=== PATIENT | male | born 1950 | race Caucasian/White ===

== ENCOUNTER → 2018-01-04 10:24 | Outpatient (CLI) | payer MEDICARE, OTHER, SELFPAY ==
[2018-01-04 12:59] LABS: AST(SGOT) 24 U/L (15-37); Alanine Aminotransfer ALT/SGPT 38 U/L (16-61); Anion Gap 12 (5-15); BUN 14 mg/dL (7-18); BUN/Creat Ratio 19.4 RATIO (10-20); Calcium,Total 8.9 mg/dL (8.5-10.1); Chloride 107 mmol/L (98-107); Cholesterol 127 mg/dL (200); Creatinine, Serum 0.72 mg/dL (0.70-1.30); EST Glomerular Filtration Rate 115 mL/min (>60); Est Glom Filt Rate - Afr Amer 139 mL/min (>60); Glucose 91 mg/dL (74-106); High Density Lipoprotein 41 mg/dL; PSA,Total - Annual Screen 1.58 ng/mL (0.00-4.00); Potassium 4.2 mmol/L (3.5-5.1); Sodium Level 142 mmol/L (136-145); Thyroid Stim Hormone (TSH) 0.89 uIU/mL (0.358-3.74); Triglycerides 85 mg/dL; Very Low Density Lipoprotein 17 mg/dL (5-40)
== END ==
PROVIDERS: Family Provider Family Medicine; PCP Family Medicine; Visit Provider Family Medicine
DX: Z00.00 Encounter for general adult medical examination without abnormal findings (principal); I10 Essential (primary) hypertension; E78.00 Pure hypercholesterolemia, unspecified
CPT/HCPCS: 36415; 80048; 80061; 84153; 84443; 84450; 84460; G0103

== ENCOUNTER → 2019-01-08 10:13 | Outpatient (CLI) | payer MEDICARE, OTHER, SELFPAY ==
[2017-03-27 08:51] VITALS: BMI 30.4
[2019-01-08 13:16] LABS: Vitamin D,25 Hydroxy 37.2 ng/mL (29.95-100.01)
[2019-01-08 13:21] LABS: AST(SGOT) 23 U/L (15-37); Alanine Aminotransfer ALT/SGPT 39 U/L (16-61); Anion Gap 7 (5-15); BUN 10 mg/dL (7-18); Calcium,Total 8.8 mg/dL (8.5-10.1); Chloride 109 mmol/L (98-107); Cholesterol 127 mg/dL (200); Creatinine, Serum 0.71 mg/dL (0.70-1.30); EST Glomerular Filtration Rate 117 mL/min (>60); Est Glom Filt Rate - Afr Amer 141 mL/min (>60); Glucose 88 mg/dL (74-106); High Density Lipoprotein 50 mg/dL; Magnesium 2.1 mg/dL (1.6-2.6); PSA,Total - Annual Screen 1.52 ng/mL (0.00-4.00); Sodium Level 141 mmol/L (136-145); Triglycerides 100 mg/dL; Very Low Density Lipoprotein 20 mg/dL (5-40)
== END ==
PROVIDERS: Family Provider Family Medicine; PCP Family Medicine; Visit Provider Family Medicine
DX: Z00.00 Encounter for general adult medical examination without abnormal findings (principal); I10 Essential (primary) hypertension; E78.00 Pure hypercholesterolemia, unspecified; E55.9 Vitamin D deficiency, unspecified; N52.9 Male erectile dysfunction, unspecified; Z12.5 Encounter for screening for malignant neoplasm of prostate
CPT/HCPCS: 36415; 80048; 80061; 82306; 83735; 84153; 84403; 84450; 84460; G0103

== ENCOUNTER → 2019-01-16 18:50 | Outpatient (CLI) | payer MEDICARE, OTHER, SELFPAY ==
--- NOTE | 2019-01-16 18:55 | CT_ITS ---
STUDY: LOW DOSE CT LUNG CANCER SCREENING REASON FOR EXAM: Male, 68 years old. Tobacco use. 1 pack per day for 40 years. Screening for lung cancer. RADIATION DOSAGE (If Supplied By Facility): CTDIvol = ( 3.02 ) mGy, DLP = ( 120.41 ) mGycm TECHNIQUE: CT chest without contrast, lung cancer screening protocol. COMPARISON: Chest radiograph 05/25/2017. FINDINGS: Heart and great vessels: Heart size normal. No aneurysm of the thoracic aorta. Atherosclerosis including of the coronary arteries. Lungs, pleura: No concerning pulmonary nodules. 2 small incidental calcified granulomas, one in the right upper lobe and the other in left lower lobe. No pneumonia, edema, or acute abnormality in the lungs. No pleural effusion. No pneumothorax. Mild biapical emphysema. Mediastinum: No adenopathy or mass or hematoma. Osseous: No fracture or acute osseous abnormality. Chest wall: No concerning findings. Upper abdomen: No acute findings. Incidental cyst upper pole right kidney. CT/Low Dose CT Lung Screening IMPRESSION: No concerning pulmonary nodules. Lung RADS category 1. Electronically Signed: Yaron Pina, at 19:20 EDT Tel , Service support ,
== END ==
PROVIDERS: Family Provider Family Medicine; PCP Family Medicine; Referring Provider Family Medicine; Visit Provider Family Medicine
DX: Z12.2 Encounter for screening for malignant neoplasm of respiratory organs (principal); Z87.891 Personal history of nicotine dependence; J44.9 Chronic obstructive pulmonary disease, unspecified
CPT/HCPCS: G0297

== ENCOUNTER → 2019-02-26 10:24 | Outpatient (CLI) | payer MEDICARE, OTHER, SELFPAY ==
[2017-03-27 08:51] VITALS: BMI 30.4
[2019-02-26 12:30] LABS: Absolute Lymphocyte Count 1.63 X10^3/uL (0.83-4.51); Absolute Neutrophil Count 2.5 X10^3/uL (2.0-7.7); Basophil# 0.03 X10^3/uL; Basophil% 0.6 % (0-1); Eosinophil# 0.12 X10^3/uL; Eosinophils% 2.5 % (0-5); Hematocrit 42.7 % (40-54); Hemoglobin 13.8 g/dL (13.0-16.5); Lymphocyte # 1.63 X10^3/ul (4.0); Lymphocyte % 34.5 % (19-41); Mean Corp Hgb Conc 32.3 g/dL (32-36); Mean Corpuscular Hgb 32.9 pg (27.0-32.0); Mean Corpuscular Volume 101.9 fL (80-94); Mean Platelet Vol. 9.8 fl (6.2-12.0); Monocyte# 0.42 X10^3/uL; Monocyte% 8.9 % (0-10); NRBC Flagged by Analyzer 0 % (0-5); Neutrophil # 2.53 X10^3/uL (2.7-7.7); Neutrophil % 53.5 % (47-70); Platelet Count 184 K/mm3 (150-450); RBC Distribution Width CV 12.7 % (11.6-14.6); RBC Distribution Width SD 47.5 fl (35.1-43.9); Red Blood Count 4.19 M/mm3 (4.6-6.2); White Blood Count 4.7 K/mm3 (4.4-11.0)
[2019-02-26 12:45] LABS: PSA,Total - Annual Screen 1.79 ng/mL (0.00-4.00)
== END ==
PROVIDERS: Family Provider Family Medicine; PCP Family Medicine; Visit Provider Family Medicine
DX: R36.1 Hematospermia (principal); R35.1 Nocturia
CPT/HCPCS: 36415; 84153; 85025; G0103

== ENCOUNTER → 2019-09-28 10:46 | Outpatient (CLI) | payer MEDICARE, OTHER, SELFPAY ==
[2017-03-27 08:51] VITALS: BMI 30.4
[2019-09-28 13:40] LABS: AST(SGOT) 28 U/L (15-37); Alanine Aminotransfer ALT/SGPT 42 U/L (16-61); Anion Gap 6 (5-15); BUN 12 mg/dL (7-18); BUN/Creat Ratio 15.6 RATIO (10-20); Calcium,Total 9.1 mg/dL (8.5-10.1); Chloride 110 mmol/L (98-107); Cholesterol 133 mg/dL (200); Creatinine, Serum 0.77 mg/dL (0.70-1.30); EST Glomerular Filtration Rate 107 mL/min (>60); Est Glom Filt Rate - Afr Amer 129 mL/min (>60); Glucose 89 mg/dL (74-106); High Density Lipoprotein 43 mg/dL; Potassium 3.9 mmol/L (3.5-5.1); Sodium Level 140 mmol/L (136-145); Triglycerides 149 mg/dL; Very Low Density Lipoprotein 30 mg/dL (5-40)
== END ==
PROVIDERS: PCP Family Medicine; Visit Provider Family Medicine
DX: I10 Essential (primary) hypertension (principal); E78.00 Pure hypercholesterolemia, unspecified
CPT/HCPCS: 36415; 80048; 80061; 84450; 84460

== ENCOUNTER → 2020-01-29 11:12 | Outpatient (CLI) | payer MEDICARE, OTHER, SELFPAY ==
[2017-03-27 08:51] VITALS: BMI 30.4
--- NOTE | 2020-01-29 11:18 | RAD_ITS ---
STUDY: X-RAY CHEST REASON FOR EXAM: Male, 69 years old. COPD with exacerbation, shortness of breath, cough, wheezing, rales TECHNIQUE: PA and lateral views of the chest. COMPARISON: Comparison is made with prior study dated 05/25/2017. FINDINGS: Hyperinflation. Scattered calcified granulomas. There is no demonstrated pleural abnormality. Normal size heart. Normal mediastinum and patricio. There is prominence of the pulmonary hilar arteries without peripheral pulmonary vascular congestion, suggesting pulmonary hypertension. There is atherosclerotic calcification of the aortic arch with tortuosity. There are diffuse degenerative changes of the visualized thoracic spine. Normal visualized ribs, clavicles, and shoulders. There is no demonstrated abnormality of the visualized soft tissue structures of the upper abdomen. RAD/Chest PA and Lateral IMPRESSION: Hyperinflation. Electronically Signed: Wyatt Corral, at 12:16 EDT , Service support ,
== END ==
PROVIDERS: PCP Family Medicine
DX: J44.1 Chronic obstructive pulmonary disease with (acute) exacerbation (principal)
CPT/HCPCS: 71046

== ENCOUNTER → 2020-09-30 09:50 | Outpatient (CLI) | payer MEDICARE, OTHER, SELFPAY ==
[2017-03-27 08:51] VITALS: BMI 30.4
[2020-09-30 13:01] LABS: AST(SGOT) 29 U/L (15-37); Alanine Aminotransfer ALT/SGPT 44 U/L (16-61); Anion Gap 3 (5-15); BUN 12 mg/dL (7-18); BUN/Creat Ratio 15.5 RATIO (10-20); Calcium,Total 8.7 mg/dL (8.5-10.1); Chloride 108 mmol/L (98-107); Cholesterol 124 mg/dL (200); Creatinine, Serum 0.78 mg/dL (0.70-1.30); EST Glomerular Filtration Rate 105 mL/min (>60); Est Glom Filt Rate - Afr Amer 128 mL/min (>60); Glucose 99 mg/dL (74-106); High Density Lipoprotein 47 mg/dL; Potassium 4.2 mmol/L (3.5-5.1); Sodium Level 139 mmol/L (136-145); Triglycerides 101 mg/dL; Very Low Density Lipoprotein 20 mg/dL (5-40)
== END ==
PROVIDERS: PCP Family Medicine; Referring Provider Family Medicine; Visit Provider Family Medicine
DX: I10 Essential (primary) hypertension (principal); E78.00 Pure hypercholesterolemia, unspecified
CPT/HCPCS: 36415; 80048; 80061; 84450; 84460

== ENCOUNTER → 2020-10-09 14:27 | Outpatient (CLI) | payer MEDICARE, OTHER, SELFPAY ==
[2017-03-27 08:51] VITALS: BMI 30.4
--- NOTE | 2020-10-09 14:30 | CT_ITS ---
STUDY: LOW DOSE CT LUNG CANCER SCREENING REASON FOR EXAM: Male, 70 years old. Screening for lung cancer. Former smoker. Patient smoked 1 pack per day for 40 years. RADIATION DOSAGE (If Supplied By Facility): CTDIvol = ( 3.02 ) mGy, DLP = ( 101.94 ) mGycm TECHNIQUE: No contrast was administered. Low dose technique was utilized (average mAS-38 and kVp 120). 1.25 mm axial source images with a slice interval of 1.25-mm were reconstructed in lung windows. 2.5 mm axial source images with a slice interval of 2.5-mm were reconstructed in lung windows. 5.0 mm axial source images with a slice interval of 5.0-mm were reconstructed in soft tissue windows. Nodule measured using lung windows on PACS and/or independent workstation with automated measurement of minimum and maximum diameter. Nodule measurement reported as average diameter rounded to the nearest whole number. Growth is defined as an increase ins size of greater than 1.5 mm. COMPARISON: Comparison is made with prior study dated 01/16/2019. NODULES: No suspicious nodules are seen. Stable 2 small calcified granulomas in the right upper lobe and in the left lower lobe. Emphysema: Mild emphysematous changes. Endobronchial lesion: None Aorta: Scattered calcified aortic plaques. Coronary arteries: Minimal coronary calcification. Mediastinal nodes: Small benign-appearing mediastinal lymph nodes. Other chest and abdominal findings: Degenerative changes of the thoracic spine. CT/Low Dose CT Lung Screening IMPRESSION: Lung-RADS category 2 - Continue annual screening with LDCT in 12 months. IMPORTANT NOTES FOR USE: ACR Lung-RADS Version 1.1 Assessment Categories Release Date: 2018 Category: Coded 0-4 bases on nodule(s) with highest degree of suspicion. Negative screen is defined as categories 1 and 2; a positive screen is defined as categories 3 and 4. Category 3 and 4A nodules that are unchanged on interval CT should be coded as category 2, and individuals returned to screening in 12 months. Category 4X: Category 3 or 4 nodules with additional imaging findings that increase the suspicion of lung cancer, such as spiculation, GGN that doubles in size in 1 year, enlarged lymph notes, etc. Category Modifiers: S (significant finding unrelated to lung cancer) Electronically Signed: Wyatt Corral MD at 9:24 EDT , Service support ,
== END ==
PROVIDERS: PCP Family Medicine; Referring Provider Family Medicine; Visit Provider Family Medicine
DX: Z12.2 Encounter for screening for malignant neoplasm of respiratory organs (principal); Z87.891 Personal history of nicotine dependence
CPT/HCPCS: 71271

== ENCOUNTER → 2020-10-10 10:11 | Outpatient (CLI) | payer MEDICARE, OTHER, SELFPAY ==
[2017-03-27 08:51] VITALS: BMI 30.4
[2020-10-10 12:09] LABS: PSA,Total - Annual Screen 1.96 ng/mL (0.00-4.00)
== END ==
PROVIDERS: PCP Family Medicine; Referring Provider Family Medicine; Visit Provider Family Medicine
DX: Z12.5 Encounter for screening for malignant neoplasm of prostate (principal); R35.1 Nocturia
CPT/HCPCS: 36415; 84153; G0103

== ENCOUNTER → 2021-04-27 | Outpatient (CLI) | payer MEDICARE, OTHER, SELFPAY | END | disposition home or self-care (01) | PROVIDERS: PCP Family Medicine; Referring Provider Nurse Practitioner Family; Visit Provider Nurse Practitioner Family | DX: J98.8 Other specified respiratory disorders (principal); Z20.822 Contact with and (suspected) exposure to COVID-19 | CPT/HCPCS: 87633; 87635; U0005; U0003 ==

== ENCOUNTER 2021-12-01 06:26 | Day surgery (SDC) | payer MEDICARE, OTHER, SELFPAY ==
[2021-12-01] VITALS (8 sets, daily range): BP systolic 94–128; BP diastolic 47–70; PULSE 64–72; RESP 16–18; TEMP 36.1–36.7; O2SAT 92–97; BMI 30.1
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
[2021-12-01] MEDS: Lactated Ringers 1,000 ML 15 ML IV (07:04)
--- NOTE | 2021-12-01 07:30 | COLBX_PTH ---
PATIENT: JIMBO WEATHERS LOC: EN U#:[id number] AGE/SX: 71/M ROOM: RE12/01/[address]: Dr. Norm Ellison MD : 1950 BED: DIS: 12/01/2021 SPEC #: [id number] RECD: 12/01/21 09:16 STATUS: BIBI REDaniela #: [id number] KISHOR: 12/01/21 07:[address]: Norm Ellison DEPT: SURGICAL PATHOLOGY RECD BY: Amanda Flores ENTERED: 12/01/21 09:59 SP TYPE: COLON BX OTHR DR: Dr. Lurdes Martinez MD Tissues: Rectum, NOS Procedures: Surgery Specimen Level IV HEADER OPERATION: Colonoscopy ? open access (MAC) PRE-OP DIAGNOSIS: History of colon polyps TISSUE SUBMITTED: Rectal polyp MICROSCOPIC DIAGNOSIS Rectal polyp, biopsy: Hyperplastic polyp. AM:matt 12/02/2021 MICROSCOPIC DESCRIPTION Slides are reviewed. GROSS DESCRIPTION Received in fixative is one container labeled with the patient's name and designated rectal polyp. The specimen consists of one irregular fragment of light sheridan soft tissue that measures 0.6 x 0.2 x 0.1 cm. The specimen is totally submitted in one cassette. / AM:matt 12/01/2021 TC:5 CPT: 20383
--- NOTE | 2021-12-01 07:49 | OP.COLON_ITS ---
Patient Name: Tai Mccormick Procedure Date: 12/01/2021 7:29 AM Date of : 1950 Age: 71 Procedure: Colonoscopy Indications: High risk colon cancer surveillance: Personal history of colonic polyps Providers: Norm Ellison MD Medicines: Monitored Anesthesia Care Patient Profile: This is a 71 year old male. Refer to note in patient chart for documentation of history and physical. Last Colonoscopy: 5 years ago. Complications: No immediate complications. Procedure: Pre-Anesthesia Assessment: - Prior to the procedure, a History and Physical was performed, and patient medications and allergies were reviewed. The patient's tolerance of previous anesthesia was also reviewed. The risks and benefits of the procedure and the sedation options and risks were discussed with the patient. All questions were answered, and informed consent was obtained. Prior Anticoagulants: The patient has taken no previous anticoagulant or antiplatelet agents. After reviewing the risks and benefits, the patient was deemed in satisfactory condition to undergo the procedure. After I obtained informed consent, the scope was passed under direct vision. Throughout the procedure, the patient's blood pressure, pulse, and oxygen saturations were monitored continuously. The colonoscope was introduced through the anus and advanced to the cecum, identified by appendiceal orifice and ileocecal valve. The colonoscopy was performed without difficulty. The patient tolerated the procedure well. The quality of the bowel preparation was good. Scope In: 7:36:18 AM Scope Withdrawal Time 0 hours 6 minutes 4 seconds Scope Out: 7:45:20 AM Total Procedure Duration Time 0 hours 9 minutes 2 seconds Findings: A small polyp was found in the rectum. The polyp was removed with a hot snare. Resection and retrieval were complete. The exam was otherwise without abnormality on direct and retroflexion views. Impression: - One small polyp in the rectum, removed with a hot snare. Resected and retrieved. - The examination was otherwise normal on direct and retroflexion views. Recommendation: - Discharge patient to home. - Resume previous diet. - Continue present medications. - Await pathology results. - Repeat colonoscopy date to be determined after pending pathology results are reviewed for surveillance based on pathology results. Procedure Code(s): --- Professional --- 31884, Colonoscopy, flexible; with removal of tumor(s), polyp(s), or other lesion(s) by snare technique Diagnosis Code(s): --- Professional --- Z86.010, Personal history of colonic polyps K62.1, Rectal polyp CPT copyright 2017 [employer]. All rights reserved. The codes documented in this report are preliminary and upon executive talent acquisition consultant review may be revised to meet current compliance requirements. Norm Ellison MD 12/01/2021 7:49:42 AM This report has been signed electronically. Number of Addenda: 0 Note Initiated On: 12/01/2021 7:29 AM
--- NOTE | 2021-12-01 07:49 | OP.CCLET_ITS ---
12/01/2021 Lurdes Martinez [address] [place] [address] Re : Colonoscopy procedure for Tai Valdez Dear Dr. Martinez This procedure was performed on Wednesday, December 01, 2021. My impressions and recommendations are as follows: Impressions : - One small polyp in the rectum, removed with a hot snare. Resected and retrieved. - The examination was otherwise normal on direct and retroflexion views. Recommendations : - Discharge patient to home. - Resume previous diet. - Continue present medications. - Await pathology results. - Repeat colonoscopy date to be determined after pending pathology results are reviewed for surveillance based on pathology results. My findings are described in the full procedure note, which is enclosed. If I can be of further assistance, please feel free to contact me at Doctor phone number(s): , Work: . Sincerely, Norm Ellison MD 12/01/2021 7:49:42 AM This report has been signed electronically.
--- NOTE | 2021-12-01 08:20 | SUR.PHASEI ---
PT WHEEZING WHEN WOKE UP, PT SPO2 92%. PER DR WOODRUFF, MAY USE HOME INHALER. PT NOW WITH SPO2 96%, NO WHEEZING.
== END 2021-12-01 08:45 | disposition home or self-care (01) ==
LOC: EN 06:29 → AC 06:32
PROVIDERS: PCP Family Medicine; Referring Provider Family Medicine; Visit Provider Surgery
PROC: 0DJD8ZZ Inspection of Lower Intestinal Tract, Via Natural or Artificial Opening Endoscopic (ICD-10-PCS; CPT 45378; principal; 2021-12-01 07:25)
DX: Z12.11 Encounter for screening for malignant neoplasm of colon (principal); J44.9 Chronic obstructive pulmonary disease, unspecified; K62.1 Rectal polyp; I10 Essential (primary) hypertension; E78.00 Pure hypercholesterolemia, unspecified; M19.90 Unspecified osteoarthritis, unspecified site; J45.909 Unspecified asthma, uncomplicated; Z79.82 Long term (current) use of aspirin; Z79.899 Other long term (current) drug therapy; Z86.010 Personal history of colon polyps; Z87.891 Personal history of nicotine dependence
CPT/HCPCS: 45385; 88305; J7120; J2405

== ENCOUNTER → 2022-01-26 | Outpatient (CLI) | payer MEDICARE, OTHER, SELFPAY ==
[2022-01-26 12:55] LABS: Anion Gap 7 (5-15); BUN 11 mg/dL (7-18); BUN/Creat Ratio 14.1 RATIO (10-20); Calcium,Total 8.9 mg/dL (8.5-10.1); Chloride 108 mmol/L (98-107); Cholesterol 115 mg/dL (200); Creatinine, Serum 0.78 mg/dL (0.70-1.30); EST Glomerular Filtration Rate 105 mL/min (>60); Est Glom Filt Rate - Afr Amer 126 mL/min (>60); Glucose 104 mg/dL (74-106); High Density Lipoprotein 43 mg/dL; Potassium 4.2 mmol/L (3.5-5.1); Sodium Level 141 mmol/L (136-145); Triglycerides 121 mg/dL; Very Low Density Lipoprotein 24 mg/dL (5-40)
== END | disposition home or self-care (01) ==
LOC: MFPLAB 10:21
PROVIDERS: PCP Family Medicine; Visit Provider Family Medicine
DX: I10 Essential (primary) hypertension (principal)
CPT/HCPCS: 36415; 80048; 80061

== ENCOUNTER → 2022-07-22 | Outpatient (CLI) | payer MEDICARE, OTHER, SELFPAY | END | disposition home or self-care (01) | PROVIDERS: PCP Family Medicine; Referring Provider Otolaryngology Otolaryngology/Facial Plastic Surgery; Visit Provider Otolaryngology Otolaryngology/Facial Plastic Surgery | DX: H92.10 Otorrhea, unspecified ear (principal) | CPT/HCPCS: 87070; 87075; 87077; 87107; 87205 ==

== ENCOUNTER → 2022-08-02 | Outpatient (CLI) | payer MEDICARE, OTHER, SELFPAY | END | disposition home or self-care (01) | PROVIDERS: PCP Family Medicine; Referring Provider Otolaryngology Otolaryngology/Facial Plastic Surgery; Visit Provider Otolaryngology Otolaryngology/Facial Plastic Surgery | DX: H66.90 Otitis media, unspecified, unspecified ear (principal) | CPT/HCPCS: 87070; 87075; 87205 ==

== ENCOUNTER → 2022-08-25 | Outpatient (CLI) | payer MEDICARE, OTHER, SELFPAY ==
[2022-08-25 15:54] LABS: PSA,Total - Annual Screen 2.06 ng/mL (0.00-4.00)
== END | disposition home or self-care (01) ==
PROVIDERS: PCP Family Medicine; Referring Provider Family Medicine; Visit Provider Family Medicine
DX: Z12.5 Encounter for screening for malignant neoplasm of prostate (principal); H92.13 Otorrhea, bilateral
CPT/HCPCS: 36415; 84153; 87070; 87075; 87077; 87107; 87205; G0103

== ENCOUNTER → 2022-09-03 | Outpatient (CLI) | payer MEDICARE, OTHER, SELFPAY ==
--- NOTE | 2022-09-03 07:00 | CT_ITS ---
EXAM: CT CHEST, LUNG CANCER SCREENING WITHOUT INTRAVENOUS CONTRAST CLINICAL INDICATION: SCREENING TECHNIQUE: Helically acquired images were obtained of the chest without intravenous contrast using low dose (LDCT) lung cancer screening protocol. This CT exam was performed using one or more of the following dose reduction techniques: automated exposure control, adjustment of the mA and/or kV according to patient size, and/or use of iterative reconstruction technique. This report was created using [employer] report generation technology. COMPARISON: CT Lung Cancer Screening dated 10/09/2020 FINDINGS: LUNGS AND PLEURAL SPACES: 3 mm calcified granuloma again noted within the right upper lobe. No evidence of a lung mass or suspicious pulmonary nodule. No pleural effusion or thickening. No pneumothorax. HEART: Normal. Heart size is normal. No pericardial effusion. No significant coronary artery calcifications. MEDIASTINUM: Normal. No mediastinal or hilar adenopathy. Esophagus is unremarkable. No hiatal hernia. THYROID: Normal. No thyroid nodules or calcification. 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 VASCULATURE: Normal. Thoracic aorta is non-dilated. LYMPH NODES: Normal. No enlarged lymph nodes. CT/Low Dose CT Lung Screening IMPRESSION: No evidence of a lung mass or suspicious pulmonary nodule. Lung-RADS score: 1 - Negative. Recommend continued annual screening with low-dose CT (LDCT) in 12 months. Electronically Signed: Danny Kemp MD at 15:55 EDT Reading Location ID and State: [address] [place] [address] Tel , Service support ,
== END | disposition home or self-care (01) ==
LOC: CT 06:56
PROVIDERS: PCP Family Medicine; Visit Provider Family Medicine
DX: Z87.891 Personal history of nicotine dependence (principal)
CPT/HCPCS: 71271

== ENCOUNTER → 2022-10-22 | Outpatient (CLI) | payer MEDICARE, OTHER, SELFPAY ==
--- NOTE | 2022-10-22 08:26 | RAD_ITS ---
INDICATION: Pneumonia in right lung, getting worse EXAMINATION/TECHNIQUE: X-RAY - XR Chest 2 Views COMPARISON: 01/29/2020 FINDINGS: LINES/DEVICES: None. LUNGS: No consolidation. No pneumothorax. MEDIASTINUM: Unremarkable. CARDIAC SILHOUETTE: Not enlarged. BONES AND SOFT TISSUES: Degenerative changes in the dorsal spine. RAD/Chest PA and Lateral IMPRESSION: No evidence of active intrathoracic disease. Electronically Signed: Yani Alfonso MD at 7:10 EDT ,
== END | disposition home or self-care (01) ==
LOC: MTRAD 08:26
PROVIDERS: PCP Family Medicine; Referring Provider Family Medicine; Visit Provider Family Medicine
DX: J43.9 Emphysema, unspecified (principal)
CPT/HCPCS: 71046

== ENCOUNTER → 2022-12-03 | Outpatient (CLI) | payer MEDICARE, OTHER, SELFPAY ==
[2022-12-03 09:06] LABS: Hematocrit 45.8 % (40-54); Hemoglobin 14.9 g/dL (13.0-16.5); Mean Corp Hgb Conc 32.5 g/dL (32-36); Mean Corpuscular Hgb 33.6 pg (27.0-32.0); Mean Corpuscular Volume 103.4 fL (80-94); Mean Platelet Vol. 9.6 fl (6.2-12.0); Platelet Count 204 K/mm3 (150-450); RBC Distribution Width CV 13.1 % (11.6-14.6); RBC Distribution Width SD 50.4 fl (35.1-43.9); Red Blood Count 4.43 M/mm3 (4.6-6.2); White Blood Count 5.4 K/mm3 (4.4-11.0)
[2022-12-03 09:27] LABS: Anion Gap 5 (5-15); BUN 10 mg/dL (7-18); BUN/Creat Ratio 13.3 RATIO (10-20); Calcium,Total 8.4 mg/dL (8.5-10.1); Chloride 108 mmol/L (98-107); Creatinine, Serum 0.75 mg/dL (0.70-1.30); EST Glomerular Filtration Rate 108 mL/min (>60); Est Glom Filt Rate - Afr Amer 131 mL/min (>60); Glucose 104 mg/dL (74-106); Sodium Level 140 mmol/L (136-145)
== END | disposition home or self-care (01) ==
LOC: PSN 08:02
PROVIDERS: PCP Family Medicine; Referring Provider Otolaryngology; Visit Provider Otolaryngology
DX: Z01.818 Encounter for other preprocedural examination (principal)
CPT/HCPCS: 36415; 80048; 85027; 93005

== ENCOUNTER 2022-12-24 13:22 | Inpatient (IN) | payer MEDICARE, OTHER, SELFPAY ==
[2022-12-24] VITALS (26 sets, daily range): BP systolic 86–135; BP diastolic 53–77; PULSE 67–82; RESP 13–20; TEMP 36.1–36.9; O2SAT 93–100; BMI 29.0; BMI 28.4
[2022-12-24] MEDS: Ondansetron 4 MG/2 ML Vial IV (13:27)
[2022-12-24] MEDS: Heparin Injection (Vial) 5,000 UNIT/ML VIAL 4000 UNIT IV (13:27)
[2022-12-24] MEDS: TICAGRELOR 90 MG TABLET 180 MG PO (13:27)
--- NOTE | 2022-12-24 13:27 | EKG12_ITS ---
Test Reason : CP Blood Pressure : / mmHG Vent. Rate : 082 BPM Atrial Rate : 082 BPM P-R Int : 218 ms QRS Dur : 102 ms QT Int : 376 ms P-R-T Axes : 076 069 091 degrees QTc Int : 439 ms Critical Test Result: STEMI Sinus rhythm with 1st degree A-V block with Premature atrial complexes ST elevation consider inferior injury or acute infarct ACUTE TN / STEMI Consider right ventricular involvement in acute inferior infarct Abnormal ECG Confirmed by AIME PAZ, JESI ([id number]), subeditor JEFF CHRISTENSEN ([id number]) on 12/27/2022 8:36:41 AM Referred By: Sonia Armando Confirmed By:JIHAN ARMANDO MD
--- NOTE | 2022-12-24 13:29 | ED.VIS.CHEST ---
HPI History of Present Illness Chief Complaint: Chest Pain Narrative Narrative: Patient presents with chest pain. He was called as a ST elevation GA prior to arrival based on his prehospital EKG sent by EMS. History is slightly limited as the patient has a long history of being deaf in 1 year and just had surgery in the other. But he can hear with loud voice. Patient states he was making lunch. He started to feel weak and have some chest discomfort on the left side. It was heavy. He started to get nauseated. He went over to the sink to throw up. He then woke up on the ground in a pool of sweat. He did vomit. No indication that he hurt himself falling. He does not have a headache. He does still have the chest pain. He does feel short of breath. He is no longer diaphoretic. He does still have some nausea and that is being treated. He has a history of high cholesterol and asthma as well as hypertension. No blood thinners. Never had heart disease that he knows of. No back pain. No tearing or ripping. No leg pain or swelling. No peripheral numbness. PFSH PFSH Medical History Alcohol use Arthritis Asthma Chronic neck and back pain COPD (chronic obstructive pulmonary disease) Former smoker Hearing disorder of both ears Heart murmur High cholesterol History of blood transfusion History of colon polyps HTN (hypertension) Hyperlipidemia Knee pain Marijuana use Home Medications albuterol sulfate 90 mcg/actuation aerosol inhaler (Ventolin HFA) 1 - 2 puff inhalation Q4H PRN PRN COPD 03/17/16 [History Last Taken 03/25/16 08:00] atorvastatin 20 mg tablet 20 mg PO QHS 03/17/16 [History Last Taken Unknown] lisinopril 20 mg tablet 20 mg PO DAILY 03/17/16 [History Last Taken 12/01/21 06:05] multivitamin with folic acid 400 mcg tablet (Thera) 1 tab PO DAILY 03/17/16 [History Last Taken Unknown] omega 2-pnx-xlj-fish oil 300 mg-1,000 mg capsule (Fish Oil) 1 cap PO DAILY 11/13/21 [History Last Taken Unknown] aspirin 81 mg capsule 81 mg PO DAILY 11/25/21 [History Last Taken Unknown] diphenhydramine 25 mg-acetaminophen 500 mg tablet (Tylenol PM Extra Strength) 1 tab PO QHS PRN Sleep 11/25/21 [History Last Taken Unknown] lactobacillus combination no.4 3 billion cell capsule (Probiotic) 3,000 mmu cells PO DAILY 11/25/21 [History Last Taken Unknown] Allergy/AdvReac Type Severity Reaction Status Date / Time Sulfa (Sulfonamide Allergy Itching Verified 07/02/22 09:25 Antibiotics) Anesthetics - Amide Type - AdvReac Severe Nausea/Vom/ Verified 07/02/22 09:25 Select A Diarrhea Anesthetics - Neela Type- AdvReac Severe Nausea/Vom/ Verified 07/02/22 09:25 Parabens Diarrhea morphine AdvReac Severe Nausea/Vom/ Verified 07/02/22 09:25 Diarrhea Family History Sister Crohn disease Mother Hypertension Hypercholesteremia Osteoarthritis Father Alcoholism Surgical History H/O bilateral cataract extraction History of back surgery History of colonoscopy History of shoulder surgery Hx of total knee arthroplasty Social History (Updated 12/24/22 @ 15:[address] Ana Madden DO) household members: spouse Smoking Status: Former smoker alcohol intake: current alcohol intake frequency: 0-2 drinks per day Alcohol type: beer substance use type: marijuana ROS ROS ED ROS Narrative A complete review of systems was performed and is negative except as documented in the history of present illness. Some specific details below. Constitutional: No recent fevers or chills. He felt fine until the onset of the symptoms just this afternoon. EYE: No discharge, visual complaints, or pain. No visual field cut. ENT: No difficulty swallowing. No swelling. No pain. No reflux symptoms. CV: See history of present illness. Respiratory: See history of present illness. GI: No abdominal pain. He did have nausea and vomiting. No blood. He is nauseated now. No diarrhea. No history of AAA. : No frequency dysuria or hematuria. Musculoskeletal: No recent trauma. No pains. No swelling. Skin: No rash. He was diaphoretic at home. Neuro: No weakness or numbness. Endocrine: No polyuria or polydipsia. EXAM Physical Exam Narrative Exam Narrative: CONSTITUTIONAL: Patient is nontoxic in appearance. The patient looks comfortable. Work of breathing looks normal. He is not diaphoretic at this time. HEENT: No notable trauma. I see no bruising or abrasions or tender areas on his face or scalp. EYES: No conjunctival injection. No proptosis. He just had ear surgery with these were not looked at. NECK:No JVD. No stridor. No neck tenderness or pain when he looks left and right. CARDIOVASCULAR: Regular rate. Regular rhythm. No notable murmur. No JVD. Peripheral pulses are good. On the monitor, his heart rate is about 80. There are ST changes. I see no ectopy. No periods of bradycardia. RESPIRATORY: No respiratory distress. Breathing is unlabored. No rales heard at the bases. GASTROINTESTINAL: Not distended. Bowel sounds are normal. No tenderness. No guarding. No rebound. No palpable mass. No bruit is heard. GENITOURINARY: No tenderness over the bladder. No CVA tenderness. MUSCULOSKELETAL: Atraumatic. I am not getting any tenderness to his ankles lower legs knees thighs hips or pelvis. Similar upper extremities show no tenderness or deformities. I am not seeing any bruising or signs of acute trauma that would worry quire urgent x-rays. No distended calves tenderness or palpable cords. NEUROLOGICAL: Patient is alert and appropriate. No focal deficit noted. He is hard of hearing but that is due to a combination of chronic changes and recent ear surgery. SKIN: No noted rashes. No diaphoresis. PSYCHIATRIC: Patient is calm. Mood is appropriate. Const Vital Signs: 12/24/22 13:23 12/24/22 13:36 12/24/22 13:38 Temperature 98.5 F Temperature Source Temporal Pulse Rate 80 Respiratory Rate 20 H Respiratory Effort Short of Breath Blood Pressure 135/77 H 135/77 H Blood Pressure Mean 96 Blood Pressure Source Blood Pressure Position Blood Pressure Location Pulse Ox 97 Oxygen Delivery Method Nasal Cannula Oxygen Flow Rate (L/min) 2 12/24/22 13:40 12/24/22 13:41 12/24/22 14:45 Temperature 98.5 F 97.2 F L Temperature Source Temporal Temporal Pulse Rate 80 80 Respiratory Rate 20 H 14 Respiratory Effort Blood Pressure 135/77 H 86/56 L Blood Pressure Mean 96 66 Blood Pressure Source Monitor Blood Pressure Position Semi-Fowlers Blood Pressure Location Left Arm Pulse Ox 97 97 Oxygen Delivery Method Nasal Cannula Nasal Cannula Nasal Cannula Oxygen Flow Rate (L/min) 2 2 12/24/22 15:00 12/24/22 15:15 Temperature Temperature Source Pulse Rate 77 72 Respiratory Rate 17 16 Respiratory Effort Blood Pressure 93/55 L 88/53 L Blood Pressure Mean 67 64 Blood Pressure Source Monitor Monitor Blood Pressure Position Semi-Fowlers Semi-Fowlers Blood Pressure Location Left Arm Left Arm Pulse Ox 99 97 Oxygen Delivery Method Nasal Cannula Nasal Cannula Oxygen Flow Rate (L/min) 2 2 MDM MDM MDM Narrative Medical decision making narrative: We had called STEMI before the patient arrived based on his prehospital EKG. Dr. Armando called back quite quickly. I discussed with him the information that we had. He then came down to the emergency department and was in the room just moments after the patient's arrival and saw the patient here. Plan is to go to the Electrical Maintenance Mechanic. At this time we are pending blood work but his story exam and EKG is consistent with an acute ST elevation GA. Patient CBC shows mild elevation in the white count which is nonspecific and may be stress demargination. Patient's electrolytes show mildly low potassium and sodium that should self correct. Glucose is slightly up at 149 and can be followed. Patient's troponin is initially at 61. Patient went to the Electrical Maintenance Mechanic. Stable when he left the ED. With seeing patient, discussing with tree feller, documentation and reviewing results critical care time of 37 minutes was needed. Lab Data Attestation: I reviewed the patient's lab results. Labs: Laboratory Results - last 24 hr 12/24/22 13:15 WBC 14.4 H RBC 4.15 L Hgb 13.9 Hct 41.8 MCV 100.7 H MCH 33.5 H MCHC 33.3 RDW Std Deviation 47.2 H RDW Coeff of Annie 12.6 Plt Count 214 MPV 9.7 Immature Gran % (Auto) 0.500 Neut % (Auto) 84.7 H Lymph % (Auto) 8.5 L [place] % (Auto) 6.0 Eos % (Auto) 0.1 Baso % (Auto) 0.2 Absolute Neuts (auto) 12.2 H Absolute Lymphs (auto) 1.23 Nucleated RBC % 0 PT 13.1 INR 1.0 APTT 22.4 L Sodium 134 L Potassium 3.4 L Chloride 103 Carbon Dioxide 21.0 Anion Gap 10 BUN 12 Creatinine 0.89 Estim Creat Clear Calc 67.70 Est GFR (MDRD) Af Amer 108 Est GFR (MDRD) Non-Af 89 BUN/Creatinine Ratio 13.5 Glucose 149 H Hemoglobin A1c 5.8 H Calcium 8.8 Troponin I High Sens 61 Triglycerides 105 Cholesterol 102 LDL Cholesterol 31 VLDL Cholesterol 21 HDL Cholesterol 50 EKG Initial EKG: Comments: My independent interpretation of the patient's EKG done for chest pain shows sinus rhythm with first-degree AV block and overall rate of 82. There is approximately [address] elevation in 2 3 aVF with some slight anterior lateral ST depression consistent with an acute inferior ST elevation GA. No ventricular ectopy. AK interval is long. QRS duration and QTc are normal. Critical Care Time Critical Care Time: Yes Critical care time (excluding procedures): 30-74 minutes, Discussing w/Patient &/or Family/Lens Matcher, Discussing w/Consultants, Arranging Admission or Transfer, Performing Direct Patient Care at Bedside and - (37 minutes. See MDM) Discharge Plan Dx/Rx/DC Orders Clinical Impression: Acute non-ST elevation myocardial infarction (NSTEMI) of inferior wall, First degree AV block, History of high cholesterol, History of hypertension Disposition Disposition: Acute Care [facility] Discharge Date/Time: 12/24/22 13:44
[2022-12-24 13:43] LABS: Absolute Lymphocyte Count 1.23 X10^3/uL (0.83-4.51); Absolute Neutrophil Count 12.2 X10^3/uL (2.0-7.7); Basophil# 0.03 X10^3/uL; Basophil% 0.2 % (0-1); Eosinophil# 0.01 X10^3/uL; Eosinophils% 0.1 % (0-5); Hematocrit 41.8 % (40-54); Hemoglobin 13.9 g/dL (13.0-16.5); Lymphocyte # 1.23 X10^3/ul (0.83-4.51); Lymphocyte % 8.5 % (19-41); Mean Corp Hgb Conc 33.3 g/dL (32-36); Mean Corpuscular Hgb 33.5 pg (27.0-32.0); Mean Corpuscular Volume 100.7 fL (80-94); Mean Platelet Vol. 9.7 fl (6.2-12.0); Monocyte# 0.87 X10^3/uL; NRBC Flagged by Analyzer 0 % (0-5); Neutrophil # 12.22 X10^3/uL (2.7-7.7); Neutrophil % 84.7 % (47-70); Platelet Count 214 K/mm3 (150-450); RBC Distribution Width CV 12.6 % (11.6-14.6); RBC Distribution Width SD 47.2 fl (35.1-43.9); Red Blood Count 4.15 M/mm3 (4.6-6.2); White Blood Count 14.4 K/mm3 (4.4-11.0)
[2022-12-24 13:47] LABS: Prothrombin Time (Protime)PT. 13.1 SECONDS (11.7-14.9)
[2022-12-24 13:48] LABS: Partial Thromboplast Time 22.4 Seconds (24.1-36.2)
[2022-12-24 14:04] LABS: Anion Gap 10 (5-15); BUN 12 mg/dL (7-18); BUN/Creat Ratio 13.5 RATIO (10-20); Calcium,Total 8.8 mg/dL (8.5-10.1); Chloride 103 mmol/L (98-107); Creatinine, Serum 0.89 mg/dL (0.70-1.30); EST Glomerular Filtration Rate 89 mL/min (>60); Est Glom Filt Rate - Afr Amer 108 mL/min (>60); Glucose 149 mg/dL (74-106); Potassium 3.4 mmol/L (3.5-5.1); Sodium Level 134 mmol/L (136-145); Troponin-I HS 61 pg/mL (3.0-78.0)
--- NOTE | 2022-12-24 14:53 | CON.PCM.CA_ITS ---
Assessment & Plan Assessment/Plan (1) STEMI (ST elevation myocardial infarction): QUALIFIERS: Involved coronary artery: right coronary artery Qualified Code(s): I21.11 - ST elevation (STEMI) myocardial infarction involving right coronary artery PLAN: Treated with drug-eluting stent placement. We will keep the patient on aspirin, Brilinta and increase his dose of statin. We will also add a low-dose beta-sebastián and decrease his KENJI inhibitor dose to accommodate the beta-sebastián addition. EF by LV gram was preserved with mild hypokinesis of the basal inferior wall. Patient is being admitted to the CCU for further management of his inferior ST elevation DE. HPI Consult Data Date of Consult: 12/24/22 HPI Narrative Reason for Consultation: STEMI HPI Narrative: JIMBO WEATHERS, is a 72 M who presents with chest tightness after a syncopal episode. Patient was apparently making a sandwich and then passed out and woke up on the floor. He was also having chest tightness and called his family who then called 911. EKG done by the paramedics revealed inferior ST elevation DE and a STEMI alert was called. 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 He does have residual 60 to 70% stenosis in an obtuse marginal branch that will be treated medically at this time. If he has anginal symptoms then PCI of the vessel can be performed. Review of systems: All systems reviewed. All else is negative except that in HPI. PFSH Medical History Alcohol use Arthritis Asthma Chronic neck and back pain COPD (chronic obstructive pulmonary disease) Former smoker Hearing disorder of both ears Heart murmur High cholesterol History of blood transfusion History of colon polyps HTN (hypertension) Hyperlipidemia Knee pain Marijuana use Home Medications albuterol sulfate 90 mcg/actuation aerosol inhaler (Ventolin HFA) 1 - 2 puff inhalation Q4H PRN PRN COPD 03/17/16 [History Last Taken 03/25/16 08:00] atorvastatin 20 mg tablet 20 mg PO QHS 03/17/16 [History Last Taken Unknown] lisinopril 20 mg tablet 20 mg PO DAILY 03/17/16 [History Last Taken 12/01/21 06:05] multivitamin with folic acid 400 mcg tablet (Thera) 1 tab PO DAILY 03/17/16 [History Last Taken Unknown] omega 7-hcj-eqd-fish oil 300 mg-1,000 mg capsule (Fish Oil) 1 cap PO DAILY 11/13/21 [History Last Taken Unknown] aspirin 81 mg capsule 81 mg PO DAILY 11/25/21 [History Last Taken Unknown] diphenhydramine 25 mg-acetaminophen 500 mg tablet (Tylenol PM Extra Strength) 1 tab PO QHS PRN Sleep 11/25/21 [History Last Taken Unknown] lactobacillus combination no.4 3 billion cell capsule (Probiotic) 3,000 mmu cells PO DAILY 11/25/21 [History Last Taken Unknown] Allergy/AdvReac Type Severity Reaction Status Date / Time Sulfa (Sulfonamide Allergy Itching Verified 07/02/22 09:25 Antibiotics) Anesthetics - Amide Type - AdvReac Severe Nausea/Vom/ Verified 07/02/22 09:25 Select A Diarrhea Anesthetics - Neela Type- AdvReac Severe Nausea/Vom/ Verified 07/02/22 09:25 Parabens Diarrhea morphine AdvReac Severe Nausea/Vom/ Verified 07/02/22 09:25 Diarrhea Family History Sister Crohn disease Mother Hypertension Hypercholesteremia Osteoarthritis Father Alcoholism Surgical History H/O bilateral cataract extraction History of back surgery History of colonoscopy History of shoulder surgery Hx of total knee arthroplasty Social History household members: spouse Smoking Status: Former smoker alcohol intake: current alcohol intake frequency: 3 or more drinks per day Alcohol type: beer Physical Exam Const alert and oriented x3 HEENT normocephalic Eyes no scleral icterus Resp normal respiratory effort Cardio regular rate Extremity no pedal edema Skin no rashes or lesions noted Psych mental status grossly normal Risk Stratification Risk Stratification Applicable: No Charges/Coding Visit Charges Inpatient E&M: 56029 Init Hosp L2 Objective Data Vital Signs: Vital Signs Temp Pulse Resp BP Pulse Ox O2 Del Method O2 Flow Rate 98.5 F 80 20 H 135/77 H 97 Nasal Cannula 2 12/24/22 13:41 12/24/22 13:41 12/24/22 13:41 12/24/22 13:41 12/24/22 13:41 12/24/22 13:41 12/24/22 13:40 Oxygen Flow Rate (L/min) 2 Oxygen Delivery Method Nasal Cannula Weight: 180 lb 5.41 oz Body Mass Index (BMI) 29.0 Lab / Micro Data 12/24/22 13:15 12/24/22 13:15 Labs: Laboratory Results - last 24 hr 12/24/22 13:15: WBC 14.4 H, RBC 4.15 L, Hgb 13.9, Hct 41.8, MCV 100.7 H, MCH 33.5 H, MCHC 33.3, RDW Std Deviation 47.2 H, RDW Coeff of Annie 12.6, Plt Count 214, MPV 9.7, Immature Gran % (Auto) 0.500, Neut % (Auto) 84.7 H, Lymph % (Auto) 8.5 L, Henry % (Auto) 6.0, Eos % (Auto) 0.1, Baso % (Auto) 0.2, Absolute Neuts (auto) 12.2 H, Absolute Lymphs (auto) 1.23, Nucleated RBC % 0, PT 13.1, INR 1.0, APTT 22.4 L, Sodium 134 L, Potassium 3.4 L, Chloride 103, Carbon Dioxide 21.0, Anion Gap 10, BUN 12, Creatinine 0.89, Estim Creat Clear Calc 67.70, Est GFR (MDRD) Af Amer 108, Est GFR (MDRD) Non-Af 89, BUN/Creatinine Ratio 13.5, Glucose 149 H, Calcium 8.8, Troponin I High Sens 61 Cardiology Labs/Tests 12/24/22 13:15: WBC 14.4 H, RBC 4.15 L, Hgb 13.9, Hct 41.8, MCV 100.7 H, MCH 33.5 H, MCHC 33.3, Plt Count 214, MPV 9.7, Immature Gran % (Auto) 0.500, Neut % (Auto) 84.7 H, Lymph % (Auto) 8.5 L, [place] % (Auto) 6.0, Eos % (Auto) 0.1, Baso % (Auto) 0.2, Absolute Neuts (auto) 12.2 H, Nucleated RBC % 0, PT 13.1, INR 1.0, APTT 22.4 L, Sodium 134 L, Potassium 3.4 L, Chloride 103, Carbon Dioxide 21.0, Anion Gap 10, BUN 12, Creatinine 0.89, Est GFR (MDRD) Af Amer 108, Est GFR (MDRD) Non-Af 89, BUN/Creatinine Ratio 13.5, Glucose 149 H, Calcium 8.8 Rhythm: EKG: ECHO: Stress Test: Cardiac Cath: PCI: CT Surgery: Holter monitor: EPS: PPM: CXR: Chest CT Scan:
--- NOTE | 2022-12-24 15:09 | ECHOCS_ITS ---
Reason For Study: s/p KS Procedure This was a 2D Doppler, Color Flow transthoracic echocardiogram. Contrast injection was performed. Exam performed portable in ICU/CCU. Left Ventricle Normal LV size. The estimated ejection fraction is 60-65 %. No evidence for diastolic dysfunction. Hypokinesis of the mid inferior and lateral espinal. Right Ventricle Normal RV size. Normal systolic function. Atria Normal left atrium. Normal right atrium. No doppler evidence for ASD. Mitral Valve There is no mitral valve stenosis. No mitral valve insufficiency. Tricuspid Valve There is no tricuspid stenosis. Unable to estimate RV systolic pressure due to inadequate jet, pulmonary artery pressure probably normal. Aortic Valve Trisinus/trileaflet aortic valve. There is no aortic stenosis. No aortic valve insufficiency. Pulmonic Valve There is no pulmonic valvular stenosis. No pulmonic valve insufficiency. Great Vessels Normal aortic root. Pericardium/Pleural No pericardial effusion. Medication Diluted definity 2ml given slow IV push to enhance endocardial definition. MMode/2D Measurements & Calculations LVIDd: 3.9 cm IVSd: 1.2 cm Ao root diam: 2.5 cm LVIDs: 2.8 cm LVPWd: 1.2 cm RVDd: 3.4 cm FS: 28.9 % LAV(MOD-bp): 29.3 ml LVAd ap4: 30.3 cm2 SV(MOD-sp4): 49.6 ml LAV(MOD-bp) Indexed: 15.3 ml/m2 LVLd ap4: 8.4 cm LAV(MOD-sp2): 33.4 ml EDV(MOD-sp4): 88.3 ml LAV(MOD-sp4): 25.2 ml EDV(sp4-el): 92.8 ml LVAs ap4: 18.0 cm2 LVLs ap4: 7.0 cm ESV(MOD-sp4): 38.7 ml ESV(sp4-el): 39.2 ml EF(MOD-sp4): 56.1 % EF(sp4-el): 57.7 % SV(sp4-el): 53.5 ml LA A4 area: 11.9 cm2 LA dimension(2D): 3.8 cm RA A4 area: 10.6 cm2 TAPSE: 2.2 cm Time Measurements MV dec time: 0.29 sec Doppler Measurements & Calculations MV E max fracisco: 61.1 cm/sec Lat Peak E' Fracisco: 10.5 cm/sec Med Peak E' Fracisco: 6.8 cm/sec MV A max fracisco: 73.3 cm/sec E/E' lat: 5.8 E/E' med: 9.0 MV E/A: 0.83 MV dec slope: 214.0 cm/sec2 Ao V2 max: 118.5 cm/sec LV V1 max: 114.6 cm/sec Ao max P.6 mmHg LV V1 max P.3 mmHg Ao V2 mean: 79.3 cm/sec Ao mean P.8 mmHg Ao V2 VTI: 22.0 cm PA V2 max: 76.0 cm/sec ECHO/Echo Complete W/ Contrast Interpretation Summary The estimated ejection fraction is 60-65 %. No evidence for diastolic dysfunction. Hypokinesis of the mid inferior and lateral espinal Ordering Physician: Ana Madden Referring Physician: Malachi Armando Performed By: Lottie Ribeiro, YAMEL, RVT
--- NOTE | 2022-12-24 15:14 | CRPHASE1 ---
Patient Communication Patient Information PHII Cardiac Rehab Discussed with Patient:: Yes Guide to Cardiac Rehab Given to Patient:: Yes Cardiac Rehab Facility Choice List Given to Patient:: Yes Communication to Cardiac Rehab Choice Program [facility] CR PHII:: Communication Given to CR Construction Job Cost Estimator:: Sonia Armando Sessions:: 36 sessions - 3 days/wk, 12 weeks Post Discharge Choice Letter Given to Patient:: Yes Guide to Cardiac Rehab Given by ICU Staff Prior to Discharge:: Yes Guide to Cardiac Rehab Mailed to Patient by CR Staff:: No Cardiac Rehabilitation Info Program Information Cardiac Rehabilitation Program Information: Cardiac Rehab The cardiac rehab team at [facility] consists of highly skilled exercise physiologists, nurses, respiratory therapists and physicians working together with you. Our purpose is to help you have a full recovery and achieve the goals you set for yourself. Over the years many of our patients have returned to activities they assumed they would never do again! We can help restore your confidence and motivation to make lifestyle changes that can have a significant impact on your health and quality of life! We can help answer questions and concerns you may have about exercise, lifestyle, medications, diet, stress and anxiety which are common following a hospitalization. WE monitor ECG and vital signs during exercise and discuss your progress with you and report to your physician(s). Cardiac Rehab is proven to help reduce readmissions, improve functional capacity and lower recurrence of problems with your heart. Our Cardiac Rehab program is Certified by the [place] [employer]monary [employer] (AACVPR) and Accredited by the [place] [employer] through our [facility]. You can contact us at . We invite you to call us with your questions or to get started in our program. If you have other questions or concerns be sure to ask your physician/provider during your follow-up visit. WE look forward to seeing you!
--- NOTE | 2022-12-24 15:14 | PCM.HP.STD ---
HPI - General General Date of Admission: 12/24/22 Date of Service: 12/24/22 Chief Complaint: Chest pain HPI Narrative JIMBO WEATHERS, is a 72 M who presented to the emergency department at [facility] on 03/26/2023 with chest pain. The patient reported that he was making lunch and began to feel weak and have chest discomfort on the left side. He stated his chest felt heavy and he started to become nauseated and went over the sink to throw up. He then woke up on the ground in a pool of sweat. He did vomit and denied hurting himself with falling. EMS was called and STEMI alert was called prior to hospital arrival based on prehospital EKG. He had a known history of hypertension hyperlipidemia and is a former smoker. He was taken to the [facility] where he was found to have complete RCA occlusion and was treated with HUGO to RCA. His EF was preserved noted by LV gram done with cath but did note mild hypokinesis of the basal inferior wall. Current vital signs show a temperature of 98.5, blood pressure 135/77, heart rate 80, respiratory rate 20, oxygen saturations are 97% on 2 L nasal cannula. It does not appear that he has been hypoxic. CBC shows a mild leukocytosis with a white count of 14.4 but is otherwise unremarkable. Coags are unremarkable. His chemistry panel showed mild hyponatremia with a sodium of 134 and hypokalemia with a potassium of 3.4. His glucose was 149. Initial troponin was 61. Initial EKG shows inferior STEMI. Is now complaining of right ankle pain which she did not realize on admission. Suspect to happen during syncopal episodes. PFSH Medical History Alcohol use Arthritis Asthma Chronic neck and back pain COPD (chronic obstructive pulmonary disease) Former smoker Hearing disorder of both ears Heart murmur High cholesterol History of blood transfusion History of colon polyps HTN (hypertension) Hyperlipidemia Knee pain Marijuana use Home Medications albuterol sulfate 90 mcg/actuation aerosol inhaler (Ventolin HFA) 1 - 2 puff inhalation Q4H PRN PRN COPD 03/17/16 [History Last Taken 03/25/16 08:00] atorvastatin 20 mg tablet 20 mg PO QHS 03/17/16 [History Last Taken Unknown] lisinopril 20 mg tablet 20 mg PO DAILY 03/17/16 [History Last Taken 12/01/21 06:05] multivitamin with folic acid 400 mcg tablet (Thera) 1 tab PO DAILY 03/17/16 [History Last Taken Unknown] omega 0-snt-vxo-fish oil 300 mg-1,000 mg capsule (Fish Oil) 1 cap PO DAILY 11/13/21 [History Last Taken Unknown] aspirin 81 mg capsule 81 mg PO DAILY 11/25/21 [History Last Taken Unknown] diphenhydramine 25 mg-acetaminophen 500 mg tablet (Tylenol PM Extra Strength) 1 tab PO QHS PRN Sleep 11/25/21 [History Last Taken Unknown] lactobacillus combination no.4 3 billion cell capsule (Probiotic) 3,000 mmu cells PO DAILY 11/25/21 [History Last Taken Unknown] Allergy/AdvReac Type Severity Reaction Status Date / Time Sulfa (Sulfonamide Allergy Itching Verified 07/02/22 09:25 Antibiotics) Anesthetics - Amide Type - AdvReac Severe Nausea/Vom/ Verified 07/02/22 09:25 Select A Diarrhea Anesthetics - Neela Type- AdvReac Severe Nausea/Vom/ Verified 07/02/22 09:25 Parabens Diarrhea morphine AdvReac Severe Nausea/Vom/ Verified 07/02/22 09:25 Diarrhea Family History Sister Crohn disease Mother Hypertension Hypercholesteremia Osteoarthritis Father Alcoholism Surgical History H/O bilateral cataract extraction History of back surgery History of colonoscopy History of shoulder surgery Hx of total knee arthroplasty Social History (Updated 12/24/22 @ 15:[address] Ana Madden DO) household members: spouse Smoking Status: Former smoker alcohol intake: current alcohol intake frequency: 0-2 drinks per day Alcohol type: beer substance use type: marijuana ROS Constitutional Constitutional: Denies anorexia, change in weight, chills, fatigue, fever(s), malaise, night sweats, weakness or other Eyes Eyes: Denies blurry vision, change in eye color, change in vision, discharge from eye(s), double vision, erythema, eye pain, loss of vision or other ENT HEENT: Denies abnormal hearing, dysphagia, ear pain, epistaxis, headache(s), hearing loss, nasal congestion, nasal discharge, post nasal drip, sinus pressure, sore throat or other Cardiovascular Cardiovascular: Reports chest pain; Denies claudication, dyspnea on exertion, edema, lightheadedness, orthopnea, palpitations, paroxysmal nocturnal dyspnea, rapid heart rate, syncope or other Respiratory/Chest Respiratory/Chest: Reports dyspnea; Denies cough, excessive phlegm production, hemoptysis, productive cough, shortness of breath at rest, shortness of breath with exertion, wheezing or other Gastrointestinal Gastrointestinal: Reports nausea and vomiting; Denies abdominal pain, coffee ground emesis, constipation, diarrhea, dyspepsia, hematemesis, hematochezia, loose stools, melena or other Genitourinary Genitourinary: Denies burning urination, difficulty urinating, dysuria, hematuria, nocturia, urinary frequency, urinary hesitancy, urinary incontinence, urinary urgency or other Musculoskeletal Musculoskeletal: Denies arthralgias, back pain, joint pain, joint stiffness, joint swelling, myalgias, neck pain or other Neurologic Neurologic: Denies abnormal gait, abnormal speech, confusion, disequilibrium, dizziness, focal weakness, headache(s), numbness, paresthesias, seizure-like activity, seizures, syncope, tingling, tremor(s) or other Psychiatric Psychiatric: Denies anxiety, depression, homicidal ideation, suicidal ideation or other Endocrine Endocrinology: Denies change in body appearance, cold intolerance, excessive sweating, heat intolerance, polydipsia, polyuria or other Hematologic/Lymphatic Hematologic/Lymphatic: Denies anemia, easy bleeding, easy bruising, lymphadenopathy or other Allergic/Immunologic Allergic/Immunologic: Denies rhinitis, hives, eczemia, asthma or other Vital Signs Vital Signs Vital Signs: 12/24/22 13:23 12/24/22 13:36 12/24/22 13:38 Temperature 98.5 F Temperature Source Temporal Pulse Rate 80 Respiratory Rate 20 H Respiratory Effort Short of Breath Blood Pressure 135/77 H 135/77 H Blood Pressure Mean 96 Pulse Ox 97 Oxygen Delivery Method Nasal Cannula Oxygen Flow Rate (L/min) 2 12/24/22 13:40 12/24/22 13:41 Temperature 98.5 F Temperature Source Temporal Pulse Rate 80 Respiratory Rate 20 H Respiratory Effort Blood Pressure 135/77 H Blood Pressure Mean 96 Pulse Ox 97 Oxygen Delivery Method Nasal Cannula Nasal Cannula Oxygen Flow Rate (L/min) 2 Weight Weight: 79.9 kg Body Mass Index (BMI) 28.4 Physical Exam Const alert, oriented x3, no apparent distress and well nourished Constitutional Narrative: Older white male, sitting up in bed, family at bedside, appears comfortable and nontoxic, joking with staff General Appearance: cooperative HEENT normocephalic, head/scalp atraumatic and moist oral mucous membranes; Negative for hearing grossly normal bilaterally HEENT Narrative: Marked hearing loss Neck no lymphadenopathy, supple, no JVD and no carotid bruits Resp normal respiratory effort, no retractions, no use of accessory muscles and clear to auscultation bilaterally Resp Narrative: Diffusely diminished Auscultation: Negative for rales, rhonchi or wheezes Cardio regular rate, regular rhythm, S1 normal heart sound, S2 normal heart sound, no murmurs, no rub, no gallops, no clicks and no JVD GI normal to inspection, nondistended, normoactive bowel sounds, soft to palpation and non-tender Extremity Extremity Narrative: Swelling at right ankle with pain during range of motion and tenderness with palpation to the distal tibia and fibula region along with the lateral malleolus, ecchymosis is also present in this area, no cyanosis or clubbing, left lower extremity without any edema Neuro oriented x3, CN's II-XII intact bilaterally, moves all extremities and no focal motor deficits Speech: speech normal Psych affect normal Psych Narrative: Very pleasant, interacts appropriately Results Lab / Micro Data 12/24/22 13:15 12/24/22 13:15 Labs: Laboratory Results - last 24 hr 12/24/22 13:15: WBC 14.4 H, RBC 4.15 L, Hgb 13.9, Hct 41.8, MCV 100.7 H, MCH 33.5 H, MCHC 33.3, RDW Std Deviation 47.2 H, RDW Coeff of Annie 12.6, Plt Count 214, MPV 9.7, Immature Gran % (Auto) 0.500, Neut % (Auto) 84.7 H, Lymph % (Auto) 8.5 L, [place] % (Auto) 6.0, Eos % (Auto) 0.1, Baso % (Auto) 0.2, Absolute Neuts (auto) 12.2 H, Absolute Lymphs (auto) 1.23, Nucleated RBC % 0, PT 13.1, INR 1.0, APTT 22.4 L, Sodium 134 L, Potassium 3.4 L, Chloride 103, Carbon Dioxide 21.0, Anion Gap 10, BUN 12, Creatinine 0.89, Estim Creat Clear Calc 67.70, Est GFR (MDRD) Af Amer 108, Est GFR (MDRD) Non-Af 89, BUN/Creatinine Ratio 13.5, Glucose 149 H, Calcium 8.8, Troponin I High Sens 61 Assessment & Plan Assessment/Plan (1) STEMI (ST elevation myocardial infarction): QUALIFIERS: Involved coronary artery: right coronary artery Qualified Code(s): I21.11 - ST elevation (STEMI) myocardial infarction involving right coronary artery (2) Leukocytosis: (3) Right ankle pain: PLAN: Plan STEMI-inferior -Status post PCI to RCA -Continue Brilinta 90 mg p.o. twice daily -Continue atorvastatin 40 mg nightly -Coreg 3.125 started by cardiology -Continue lisinopril but decreased from home dose to 2.5 mg daily -Continue home aspirin -Check echocardiogram -Check hemoglobin A1c -Check lipid panel -Cardiology following-appreciate input Leukocytosis -Suspect reactive -Repeat CBC in a.m. Left ankle pain -Marked swelling, ecchymosis and pain -Check x-rays -Occurred with syncopal episode during chest pain -I do expect extensive anticoagulation with antiplatelet use and recent cardiac catheterization Hypertension -Medication changes as noted above COPD -As needed albuterol -Monitor saturations -Currently on 2 L however this appears for comfort as he has not shown any signs of desaturation -Wean as able Hyperlipidemia -Continue atorvastatin at increased dose noted above -Check lipids Insomnia -Hold home extra strength Tylenol -As needed melatonin Hearing loss -Continue outpatient follow-up History of tobacco abuse -Remote -Recommend ongoing cessation Alcohol use -Patient reports he drinks 2 beers daily--> approximately 12 pack a week -No concern for withdrawal DVT prophylaxis -Enoxaparin daily CODE STATUS -Full code Charges/Coding Visit Charges Inpatient E&M: 28070 Init Hosp L2
--- NOTE | 2022-12-24 15:15 | CRPH1.INST_ITS ---
General Education Discussed with Patient CAD and cardiac anatomy and function:: Patient communicates acknowledgment Explanation of diagnoses and procedures:: Patient communicates acknowledgment Sign/Symptoms of [place]:: Patient communicates acknowledgment Antiplatelet therapy: Patient communicates acknowledgment and Family communicates acknowledgment Proper use of NTG-SL: Patient communicates acknowledgment Emergency procedures and activation of EMS: Patient communicates acknowledgment and Family communicates acknowledgment Compliance of all prescribed medications: Patient communicates acknowledgment and Family communicates acknowledgment Smoking Response Code Nicotine/Smoking Response Code:: Patient communicates acknowledgment Dyslipidemia Response Code Dyslipidemia Response Code:: Patient communicates acknowledgment Overweight/Obesity Response Code Overweight/Obesity:: Patient communicates acknowledgment and Family communicates acknowledgment Hypertension Recommendations Recommendations Include:: Maintain BP <130/85 Response Code Hypertension:: Patient communicates acknowledgment and Family communicates acknowledgment Heart Disease Recommendations Recommendations Include:: Educated family members of their risk and Educated family members of importance of prevention of heart disease Response Code Heart Disease Response Code:: Patient communicates acknowledgment and Family communicates acknowledgment Diabetes Recommendations Recommendations Include:: Maintain fasting blood sugars 70-110 md/dL Response Code Diabetes:: Patient communicates acknowledgment and Family communicates acknowledgment Metabolic Syndrome Risk Factors Patient Metabolic Syndrome Risk Factors Are [3 of 5]:: Waist circumference > 35 [female] or 40 [male] and Hypertension Response Code Metabolic Syndrome Response Code:: Patient communicates acknowledgment and Famil y communicates acknowledgment Sedentary Risk Factors Patient Sedentary Risk Factors Are:: Lack of regular exercise Recommendations Recommendations Include:: Aerobic exercise 5-7 times/week for 20-30 minutes continuously, Benefits of regular exercise and Monitored Outpatient Cardiac Rehab Response Code Sedentary Response Code:: Patient communicates acknowledgment and Family communicates acknowledgment Stress Recommendations Recommendations Include:: Identification of stressors, and assessment of coping skills and Stress management techniques Response Code Stress Response Code:: Patient communicates acknowledgment and Family communicates acknowledgment
--- NOTE | 2022-12-24 15:36 | CL.I_ITS ---
Patient Name: JIMBO WEATHERS Study Date: 12/24/2022 Performing: Malachi Armando MD Ht: 66 inches 167.64 cm : 1950 Wt: 172.2 lbs 78.01 kg Age: 72 Gender: male BSA: 1.88 PROCEDURE(S) PERFORMED DC01-([id number])LHC/COR/LV IC16-([id number])AMI, HUGO OR PTCA, ARTERY/GRAFT, SINGLE VESSEL CLINICAL PROFILE AND CO-MORBIDITIES Indications: ACS <= 24 hrs Heart Failure: None Stress/Imaging Stress/Image Study Performed: No CAD Presentations: STEMI. Symptom onset Date/Time: 12/24/22 Time Not Available CONCLUSIONS CAD as described. LVEF is 60% with mild basal inferior hypokinesis. No significant aortic stenosis or mitral regurgitation. Successful drug-eluting stent placement to proximal RCA. RECOMMENDATIONS Dual antiplatelet therapy for a minimum of 1 year. Medical therapy for OM1 stenosis at this time. DESCRIPTION OF PROCEDURE The patient arrived to the procedure lab. The risks and benefits of the procedure as well as a full description of our services here and lack of surgical backup were fully explained to the patient and/or their significant other prior to the catheterization. The Timeout was completed, verifying the correct patient and procedure. The patient's procedural site was prepped and draped in the usual fashion. Local anesthetic was given subcutaneously to right radial region with Lidocaine 2%. Using a modified Seldinger technique, arterial access was obtained via the right radial artery, a 6Fr sheath was inserted.. Left Coronary Artery selective angiography was performed in multiple views using a 5 Fr. JL3.5 catheter. Left Ventriculography was performed in GRIMALDO projection using a 5 Fr. Pigtail catheter. LV to AO pullback pressures were then recorded JR4 Guide catheter was inserted and engaged into the RCA. BMW Guide wire was advanced to the RCA. AR2 Guide catheter was inserted and engaged into the RCA. Whisper Guide wire was advanced to the RCA. 2.5x12 SC Euphora Balloon catheter was inserted. Balloon catheter was advanced across lesion in the right coronary, proximal. PTCA balloon inflated at 8 atms for 10 secs. PTCA balloon inflated at 8 atms for 8 secs. Angiogram performed post balloon dilatation. PTCA balloon inflated at 8 atms for 10 secs. Angiogram performed post balloon dilatation. 4x18 Resolute Drug Eluting stent was inserted. Drug Eluting stent was advanced across the lesion in the right coronary, proximal. Angiogram performed post stent deployment. The arterial sheath was pulled and a TR Band was applied for hemostasis. 10cc of air CORONARY ANGIOGRAPHY DOMINANCE: Right Dominant LEFT HEART ASSESSMENT Left Ventricular Ejection Fraction: by LV Gram 60 % Mild hypokinesis of the basal inferior wall LEFT MAIN: Mild luminal irregularities LEFT ANTERIOR DESCENDING ARTERY: Mild luminal irregularities CIRCUMFLEX ARTERY: Mild luminal irregularities OM 1: Mid - 60-70 % Stenosis RAMUS: Mild luminal irregularities RIGHT CORONARY ARTERY: PROX RCA: 100 % Stenosis VALVE FINDINGS: No Aortic Valve Stenosis No Mitral Insufficency INTERVENTION INFORMATION LESION SITE: RCA (Proximal) Lesion Complexity: High/C, chronic total occlusion: No, lesion at bifurcation: No, thrombus present: Yes, lesion length: 17 mm, culprit lesion: Yes, Previously treated lesion: No Pre Stenosis: 100 % Pre intervention AMALIA flow: 0 PROCEDURE: Drug Eluting Stent with pre dilatation. Post Stenosis: 0 % Post intervention AMALIA flow: 3 Lesion Devices: Cordis 6 Fr JR4 100cm Guide Catheter [place] .014 190cm BMW [place] Straight Cordis 6 Fr AR2 100cm Guide Catheter [place] .014 190cm HT Whisper MS Straight Medtronic SC EUPHORA RX 2.5x12 BALLOON Medtronic Resolute Richard RX HUGO 4.0x18 COMPLICATIONS No Complications PROCEDURE MEDICATIONS Versed 2 mg IV Oxygen: 2 L/min via nasal cannula Atropine 1mg/10ml 1 amp @ 12/24/2022 14:03:31 Heparin given IA 12/24/2022 13:41:06 Neosynephrine 2 mg IV 12/24/2022 14:06:58 Verapamil 2.5mg, Ntg 100mcgs, 3000 units of Heparin given IA 12/24/2022 13:41:06 SUMMARY OF HEMODYNAMIC DATA Time AIR REST AO 110/73 (90) SA 13:43:57 AO 110/69 (90) 14:03:42 AO 78/46 (59) 14:11:56 LV 85/11, 16 14:16:57 LV 91/8, 18 14:17:03 LV 92/8, 18 14:18:00 LVp 88/12, 18 14:18:05 AO 82/42 (57) 14:18:10 Signed By Malachi Armando MD On 12/24/2022 15:35:39 Malachi Armando MD
[2022-12-24 15:57] LABS: Cholesterol 102 mg/dL (200); High Density Lipoprotein 50 mg/dL; Triglycerides 105 mg/dL; Very Low Density Lipoprotein 21 mg/dL (5-40)
[2022-12-24 16:12] LABS: Hemoglobin A1c 5.8 % (3.8-5.6)
[2022-12-24] MEDS: 0.9% Normal Saline 1,000 ML 60 ML IV (16:28)
[2022-12-24] MEDS: Acetaminophen 325 MG Tablet 650 MG PO ×2 (16:29→22:49)
[2022-12-24] MEDS: Potassium Chloride Oral Tablet 20 MEQ 40 MEQ PO (16:30)
[2022-12-24] MEDS: 0.9% Saline Lock 10 ML Syringe IV (16:30)
--- NOTE | 2022-12-24 16:45 | RAD_ITS ---
INDICATION: pain EXAMINATION/TECHNIQUE: X-RAY - RIGHT XR Ankle Min 3 Views 3 VIEWS COMPARISON: None. FINDINGS: SOFT TISSUES: No soft tissue swelling or gas. No radiopaque foreign body. BONES/JOINTS: Small fragment of possible avulsed cortex at the dorsal aspect of the talonavicular junction. Moderate plantar calcaneal spur and posterior enthesophyte. Joint spaces anatomically aligned. No sclerotic or destructive changes observed. RAD/Ankle min 3 Views IMPRESSION: Possible cortical avulsion fracture at the dorsal aspect of the navicular. Electronically Signed: Lg Luna MD at 18:06 EDT ,
[2022-12-24] MEDS: oxyCODONE 5 MG Tablet PO (19:37)
[2022-12-24] MEDS: Atorvastatin Calcium 40 MG Tablet PO (19:38)
[2022-12-24] MEDS: TICAGRELOR 90 MG TABLET PO (19:38)
[2022-12-24] MEDS: Carvedilol 3.125 MG TABLET PO (22:49)
[2022-12-24] MEDS: MELATONIN 3 MG TABLET PO (22:49)
[2022-12-25] VITALS (23 sets, daily range): BP systolic 90–169; BP diastolic 54–107; PULSE 65–98; RESP 12–18; TEMP 36.3–37.1; O2SAT 93–98; BMI 28.1
[2022-12-25 03:39] LABS: Hematocrit 40.7 % (40-54); Hemoglobin 13.2 g/dL (13.0-16.5); Mean Corp Hgb Conc 32.4 g/dL (32-36); Mean Corpuscular Hgb 33.6 pg (27.0-32.0); Mean Corpuscular Volume 103.6 fL (80-94); Mean Platelet Vol. 9.7 fl (6.2-12.0); Platelet Count 187 K/mm3 (150-450); RBC Distribution Width CV 12.9 % (11.6-14.6); RBC Distribution Width SD 49.3 fl (35.1-43.9); Red Blood Count 3.93 M/mm3 (4.6-6.2); White Blood Count 9.2 K/mm3 (4.4-11.0)
[2022-12-25 04:00] LABS: Phosphorus 3.5 mg/dL (2.5-4.9)
[2022-12-25 04:07] LABS: ALB/GLOB Ratio 0.9 RATIO (0.9-2.4); AST(SGOT) 204 U/L (15-37); Alanine Aminotransfer ALT/SGPT 60 U/L (16-61); Albumin, Serum 2.8 g/dL (3.2-5.0); Alkaline Phosphatase 53 U/L (45-117); Anion Gap 4 (5-15); BUN 10 mg/dL (7-18); Calcium,Total 7.9 mg/dL (8.5-10.1); Chloride 112 mmol/L (98-107); Creatinine, Serum 0.77 mg/dL (0.70-1.30); EST Glomerular Filtration Rate 106 mL/min (>60); Est Glom Filt Rate - Afr Amer 128 mL/min (>60); Estimated Creatinine Clearance 60.26 ml/min; Globulin 3.2 g/dL (2.2-4.2); Glucose 110 mg/dL (74-106); Magnesium 2.2 mg/dL (1.6-2.6); Potassium 4.2 mmol/L (3.5-5.1); Sodium Level 143 mmol/L (136-145); Thyroid Stim Hormone (TSH) 1.16 uIU/mL (0.358-3.74)
--- NOTE | 2022-12-25 07:15 | CT_ITS ---
EXAM: CT RIGHT LOWER EXTREMITY WITHOUT INTRAVENOUS CONTRAST, ANKLE CLINICAL INDICATION: R ankle pain with ? Navicular fx on x-ray TECHNIQUE: Helically acquired images were obtained of the right ankle without intravenous contrast. 2-D reformats were performed by the technologist. This CT exam was performed using one or more of the following dose reduction techniques: automated exposure control, adjustment of the mA and/or kV according to patient size, and/or use of iterative reconstruction technique. CONTRAST: None. RADIATION DOSE: CTDIvol = 15.35 mGy, DLP = 415.17 mGy-cm COMPARISON: Radiographs of the right ankle of 12/24/2022. FINDINGS: BONES/JOINTS: Small bony density on the dorsal aspect of the navicular bone close to the talonavicular joint corresponding to the x-ray abnormality consistent with small avulsion fracture of undetermined age. Mild irregularity of the lateral aspect of the cuboid close to the calcaneocuboid joint consistent with small fracture fragments arising from the cuboid. The remainder of the osseous structures are intact. The ligaments and tendons are better evaluated by MRI. No dislocation. SOFT TISSUES: Diffuse soft tissue swelling and edema of the ankle. CT/Extremity Lower without Contra IMPRESSION: 1. Small bony density on the dorsal aspect of the navicular bone close to the talonavicular joint corresponding to the x-ray abnormality consistent with small avulsion fracture of undetermined age. 2. Mild irregularity of the lateral aspect of the cuboid close to the calcaneocuboid joint consistent with small fracture fragments arising from the cuboid. 3. Diffuse soft tissue swelling and edema of the ankle. Electronically Signed: Hector Hopson MD at 9:47 EDT ,
[2022-12-25] MEDS: Carvedilol 3.125 MG TABLET PO ×2 (08:40→19:32)
[2022-12-25] MEDS: Aspirin 81 MG TAB.CHEW PO (08:40)
[2022-12-25] MEDS: Lisinopril 2.5 MG Tablet PO (08:40)
[2022-12-25] MEDS: TICAGRELOR 90 MG TABLET PO ×2 (08:40→19:32)
[2022-12-25] MEDS: oxyCODONE 5 MG Tablet PO ×2 (08:40→22:29)
[2022-12-25] MEDS: Enoxaparin 40 MG/0.4 ML Syringe SC (08:41)
[2022-12-25] MEDS: Multivitamins,Therapeutic Tablet 1 TABLET PO (08:41)
--- NOTE | 2022-12-25 09:46 | RAD_ITS ---
STUDY: X-RAY - RIGHT KNEE REASON FOR EXAM: Male, 72 years old. knee swelling s/p fall -- portable TECHNIQUE: 2 view(s) of the knee. COMPARISON: 03/25/2016 FINDINGS: Normal visualized distal femur. Normal visualized proximal tibia and fibula. Normal proximal tibiofibular articulation. Status post total knee arthroplasty. The prosthesis appears located. No ostial lysis to suggest loosening.. There is a moderate volume joint effusion. The soft tissue structures are unremarkable. RAD/Knee 1 or 2 Views IMPRESSION: 1. Status post total knee arthroplasty. 2. No acute fracture or dislocation. 3. Moderate joint effusion. Electronically Signed: Rudi Banks MD at 10:35 EDT ,
--- NOTE | 2022-12-25 10:00 | EKG12_ITS ---
Test Reason : AM EKG Blood Pressure : / mmHG Vent. Rate : 067 BPM Atrial Rate : 067 BPM P-R Int : 154 ms QRS Dur : 080 ms QT Int : 420 ms P-R-T Axes : 000 -24 -27 degrees QTc Int : 443 ms Normal sinus rhythm Inferior infarct , age undetermined Abnormal ECG When compared with ECG of 25-DEC-2022 05:11, MANUAL COMPARISON REQUIRED, DATA IS UNCONFIRMED Confirmed by OLE BERNSTEIN ([id number]), photo editor JEFF CHRISTENSEN ([id number]) on 01/04/2023 9:42:29 AM Referred By: Sonia Armando Confirmed By:OLE BERNSTEIN
--- NOTE | 2022-12-25 11:21 | PCM.CONS.GEN ---
Assessment & Plan Assessment/Plan (1) Sprain of anterior talofibular ligament of right ankle: QUALIFIERS: Encounter type: initial encounter Qualified Code(s): S93.491A - Sprain of other ligament of right ankle, initial encounter PLAN: Exam performed. Radiographs CT scan reviewed. Patient has intact pulses, intact sensation. No evidence of compartment syndrome. No obvious deformity. Patient has focal dorsal slewyn avulsion of the navicular likely secondary from a plantarflexion inversion type injury as well as ATFL sprain grade 1/2. At this time I recommend protected weightbearing in cam boot on the right lower extremity. This may be complicated by contusion to right knee. The patient can bear weight in cam walking boot as tolerated. Patient should protect the area with cam boot. Rest the area is much as possible. Ice 3 times a day for 15 minutes. Use Jordan bandage for compression to help with edema management. Elevate right lower extremity to also help with edema management. Discussed with patient will likely take 4 to 8 weeks for fracture healing. Patient will follow up outpatient for repeat radiographs. (2) Closed navicular fracture of right ankle: QUALIFIERS: Encounter type: initial encounter Fracture alignment: nondisplaced Qualified Code(s): S92.254A - Nondisplaced fracture of navicular [scaphoid] of right foot, initial encounter for closed fracture HPI Consult Data Date of Consult: 12/25/22 HPI Narrative HPI Narrative: JIMBO WEATHERS, is a 72 M who presents right ankle pain status post MT. Patient had syncopal episode when he suffered his MT and fell and suffered a plantarflexion inversion type injury to his right ankle and also suffered a contusion to his right knee. Patient seen bedside today resting comfortably with pain and swelling to his right ankle. Patient able to move digits. Patient denies any numbness loss of sensation or intractable pain to right lower extremity. Patient denies any other issues at current. PFSH Medical History Alcohol use Arthritis Asthma Chronic neck and back pain COPD (chronic obstructive pulmonary disease) Former smoker Hearing disorder of both ears Heart murmur High cholesterol History of blood transfusion History of colon polyps HTN (hypertension) Hyperlipidemia Knee pain Marijuana use Home Medications albuterol sulfate 90 mcg/actuation aerosol inhaler (Ventolin HFA) 2 puff inhalation BID PRN COPD 03/17/16 [History Last Taken 11/10/16 08:00] atorvastatin 20 mg tablet 20 mg PO QHS cholesterol 03/17/16 [History Last Taken Unknown] lisinopril 20 mg tablet 20 mg PO DAILY blood pressure 03/17/16 [History Last Taken 12/01/21 06:05] multivitamin with folic acid 400 mcg tablet (Thera) 1 tab PO DAILY Vitamin 03/17/16 [History Last Taken Unknown] omega 0-cog-nyr-fish oil 300 mg-1,000 mg capsule (Fish Oil) 1 cap PO DAILY Vitamin 11/13/21 [History Last Taken Unknown] aspirin 81 mg capsule 81 mg PO DAILY heart 11/25/21 [History Last Taken Unknown] diphenhydramine 25 mg-acetaminophen 500 mg tablet (Tylenol PM Extra Strength) 1 tab PO QHS PRN Sleep 11/25/21 [History Last Taken Unknown] ascorbic acid (vitamin C) 500 mg tablet (C-500) 500 mg PO DAILY Vitamin 12/24/22 [History Last Taken Unknown] cholecalciferol (vitamin D3) 50 mcg (2,000 unit) tablet 2,000 unit PO DAILY vitamin 12/24/22 [History Last Taken Unknown] magnesium 200 mg tablet 400 mg PO DAILY supplement 12/24/22 [History Last Taken Unknown] potassium 99 mg tablet 99 mg PO DAILY supplement 12/24/22 [History Last Taken Unknown] Allergy/AdvReac Type Severity Reaction Status Date / Time Sulfa (Sulfonamide Allergy Itching Verified 07/02/22 09:25 Antibiotics) Anesthetics - Amide Type - AdvReac Severe Nausea/Vom/ Verified 07/02/22 09:25 Select A Diarrhea Anesthetics - Neela Type- AdvReac Severe Nausea/Vom/ Verified 07/02/22 09:25 Parabens Diarrhea morphine AdvReac Severe Nausea/Vom/ Verified 07/02/22 09:25 Diarrhea Family History Sister Crohn disease Mother Hypertension Hypercholesteremia Osteoarthritis Father Alcoholism Surgical History H/O bilateral cataract extraction History of back surgery History of colonoscopy History of shoulder surgery Hx of total knee arthroplasty Social History household members: spouse Smoking Status: Former smoker alcohol intake: current alcohol intake frequency: 0-2 drinks per day Alcohol type: beer substance use type: marijuana ROS Constitutional Constitutional: Reports lethargy and malaise; Denies daytime sleepiness Eyes Eyes: Denies blind spots, discharge from eye(s) or floaters ENT HEENT: Denies change in voice, dental pain or foreign body in nose Cardiovascular Cardiovascular: Reports edema; Denies abdominal pain, claudication or clubbing Respiratory/Chest Respiratory/Chest: Reports dyspnea on exertion; Denies change in phlegm color or nail bed cyanosis Gastrointestinal Gastrointestinal: Denies change in bowel habits, dry heaves or hemorrhoids Physical Exam Narrative Dorsalis pedis posterior tibial pulses palpable 2 out of 4 to bilateral lower extremity. +1 pitting edema to right lower extremity. Some atrophic skin changes noted. Capillary fill time intact to all digits bilaterally. Digital hair growth noted. Light touch protective sensation intact to bilateral feet. Two-point discrimination intact to right foot. Skin well-hydrated intact. No open lesions. Focal tenderness to ATFL and dorsal navicular right lower extremity. No pain to medial malleolus distal tibia distal fibula fifth metatarsal base navicular tuberosity Lisfranc joint. Negative piano lawler testing. No obvious deformity. Const alert and oriented x3 Lab / Micro Data 12/25/22 03:30 12/25/22 03:30 Labs: Laboratory Results - last 24 hr 12/24/22 13:15: WBC 14.4 H, RBC 4.15 L, Hgb 13.9, Hct 41.8, MCV 100.7 H, MCH 33.5 H, MCHC 33.3, RDW Std Deviation 47.2 H, RDW Coeff of Annie 12.6, Plt Count 214, MPV 9.7, Immature Gran % (Auto) 0.500, Neut % (Auto) 84.7 H, Lymph % (Auto) 8.5 L, Hamlin % (Auto) 6.0, Eos % (Auto) 0.1, Baso % (Auto) 0.2, Absolute Neuts (auto) 12.2 H, Absolute Lymphs (auto) 1.23, Nucleated RBC % 0, PT 13.1, INR 1.0, APTT 22.4 L, Sodium 134 L, Potassium 3.4 L, Chloride 103, Carbon Dioxide 21.0, Anion Gap 10, BUN 12, Creatinine 0.89, Estim Creat Clear Calc 67.70, Est GFR (MDRD) Af Amer 108, Est GFR (MDRD) Non-Af 89, BUN/Creatinine Ratio 13.5, Glucose 149 H, Hemoglobin A1c 5.8 H, Calcium 8.8, Troponin I High Sens 61, Triglycerides 105, Cholesterol 102, LDL Cholesterol 31, VLDL Cholesterol 21, HDL Cholesterol 50 12/25/22 03:30: WBC 9.2, RBC 3.93 L, Hgb 13.2, Hct 40.7, MCV 103.6 H, MCH 33.6 H, MCHC 32.4, RDW Std Deviation 49.3 H, RDW Coeff of Annie 12.9, Plt Count 187, MPV 9.7, Sodium 143, Potassium 4.2, Chloride 112 H, Carbon Dioxide 27.0, Anion Gap 4 L, BUN 10, Creatinine 0.77, Estim Creat Clear Calc 60.26, Est GFR (MDRD) Af Amer 128, Est GFR (MDRD) Non-Af 106, BUN/Creatinine Ratio 13.0, Glucose 110 H, Calcium 7.9 L, Phosphorus 3.5, Magnesium 2.2, Total Bilirubin 0.40, AST 204 H, ALT 60, Alkaline Phosphatase 53, Total Protein 6.0 L, Albumin 2.8 L, Globulin 3.2, Albumin/Globulin Ratio 0.9, TSH 1.16 Radiology Impression Ankle X-Ray 12/24/22 16:45 IMPRESSION: Possible cortical avulsion fracture at the dorsal aspect of the navicular. Electronically Signed: Lg Luna MD at 18:06 EDT Reading Location ID and State: [facility] / [place] Tel , Service support , Lower Extremity CT 12/25/22 07:15 IMPRESSION: 1. Small bony density on the dorsal aspect of the navicular bone close to the talonavicular joint corresponding to the x-ray abnormality consistent with small avulsion fracture of undetermined age. 2. Mild irregularity of the lateral aspect of the cuboid close to the calcaneocuboid joint consistent with small fracture fragments arising from the cuboid. 3. Diffuse soft tissue swelling and edema of the ankle. Electronically Signed: Hector Hopson MD at 9:47 EDT , Knee X-Ray 12/25/22 09:46 IMPRESSION: 1. Status post total knee arthroplasty. 2. No acute fracture or dislocation. 3. Moderate joint effusion. Electronically Signed: Rudi Banks MD at 10:35 EDT ,
--- NOTE | 2022-12-25 11:49 | PN.HOSP_ITS ---
Reason for Visit Reason for Visit: Chest pain Subjective Subjective No telemetry events overnight. Patient is complaining of ongoing right ankle pain and developed right knee pain. He has recently had that knee replaced and x-rays are pending. We did discuss that he has some fractures in his foot and that podiatry would come to see him for recommendations. Pain is tolerable with as needed oxycodone. We will need to avoid NSAIDs with 2 antiplatelet therapy. Denies any chest pain and states from a cardiac standpoint he is feeling quite well. Objective Data Objective Data Vital Signs: Vital Signs Temp Pulse Resp BP Pulse Ox O2 Del Method O2 Flow Rate 97.5 F L 69 18 108/73 95 Room Air 2 12/25/22 10:00 12/25/22 11:00 12/25/22 11:00 12/25/22 11:00 12/25/22 11:00 12/25/22 11:00 12/24/22 18:00 Oxygen Flow Rate (L/min) 2 Oxygen Delivery Method Room Air Weight: 79.5 kg Body Mass Index (BMI) 28.1 Intake & Output: Intake and Output for Last 24 Hours 12/23/22 12/24/22 12/25/22 23:59 23:59 23:59 Intake Total 180 / 180 1180 / 1180 Output Total 1150 / 1950 1900 / 1900 Balance -970 / -1770 -720 / -720 Lab / Micro Data 12/25/22 03:30 12/25/22 03:30 Labs: Laboratory Results - last 24 hr 12/24/22 13:15: WBC 14.4 H, RBC 4.15 L, Hgb 13.9, Hct 41.8, MCV 100.7 H, MCH 33.5 H, MCHC 33.3, RDW Std Deviation 47.2 H, RDW Coeff of Annie 12.6, Plt Count 214, MPV 9.7, Immature Gran % (Auto) 0.500, Neut % (Auto) 84.7 H, Lymph % (Auto) 8.5 L, Bollinger % (Auto) 6.0, Eos % (Auto) 0.1, Baso % (Auto) 0.2, Absolute Neuts (auto) 12.2 H, Absolute Lymphs (auto) 1.23, Nucleated RBC % 0, PT 13.1, INR 1.0, APTT 22.4 L, Sodium 134 L, Potassium 3.4 L, Chloride 103, Carbon Dioxide 21.0, Anion Gap 10, BUN 12, Creatinine 0.89, Estim Creat Clear Calc 67.70, Est GFR (MDRD) Af Amer 108, Est GFR (MDRD) Non-Af 89, BUN/Creatinine Ratio 13.5, Glucose 149 H, Hemoglobin A1c 5.8 H, Calcium 8.8, Troponin I High Sens 61, Triglycerides 105, Cholesterol 102, LDL Cholesterol 31, VLDL Cholesterol 21, HDL Cholesterol 50 12/25/22 03:30: WBC 9.2, RBC 3.93 L, Hgb 13.2, Hct 40.7, MCV 103.6 H, MCH 33.6 H , MCHC 32.4, RDW Std Deviation 49.3 H, RDW Coeff of Annie 12.9, Plt Count 187, MPV 9.7, Sodium 143, Potassium 4.2, Chloride 112 H, Carbon Dioxide 27.0, Anion Gap 4 L, BUN 10, Creatinine 0.77, Estim Creat Clear Calc 60.26, Est GFR (MDRD) Af Amer 128, Est GFR (MDRD) Non-Af 106, BUN/Creatinine Ratio 13.0, Glucose 110 H, Calcium 7.9 L, Phosphorus 3.5, Magnesium 2.2, Total Bilirubin 0.40, AST 204 H, ALT 60, Alkaline Phosphatase 53, Total Protein 6.0 L, Albumin 2.8 L, Globulin 3.2, Albumin/Globulin Ratio 0.9, TSH 1.16 Radiography Diagnostic Testing: Radiology Impression Echocardiogram 12/24/22 15:09 Interpretation Summary The estimated ejection fraction is 60-65 %. No evidence for diastolic dysfunction. Hypokinesis of the mid inferior and lateral espinal Ordering Physician: Ana Madden Referring Physician: Malachi Armando Performed By: Lottie Ribeiro, YAMEL, RVT Ankle X-Ray 12/24/22 16:45 IMPRESSION: Possible cortical avulsion fracture at the dorsal aspect of the navicular. Electronically Signed: Lg Luna MD at 18:06 EDT , Lower Extremity CT 12/25/22 07:15 IMPRESSION: 1. Small bony density on the dorsal aspect of the navicular bone close to the talonavicular joint corresponding to the x-ray abnormality consistent with small avulsion fracture of undetermined age. 2. Mild irregularity of the lateral aspect of the cuboid close to the calcaneocuboid joint consistent with small fracture fragments arising from the cuboid. 3. Diffuse soft tissue swelling and edema of the ankle. Electronically Signed: Hector Hopson MD at 9:47 EDT , Knee X-Ray 12/25/22 09:46 IMPRESSION: 1. Status post total knee arthroplasty. 2. No acute fracture or dislocation. 3. Moderate joint effusion. Electronically Signed: Rudi Banks MD at 10:35 EDT , Physical Exam Const alert, oriented x3, no apparent distress and well nourished Constitutional Narrative: Older white male, sitting up in bed, at bedside, appears comfortable and nontoxic, General Appearance: cooperative HEENT normocephalic, head/scalp atraumatic and moist oral mucous membranes; Negative for hearing grossly normal bilaterally HEENT Narrative: Mallampati 2, dentition is good, no thrush, patient is markedly hard of hearing Eyes PERRL, EOMs intact bilaterally and conjunctivae normal Eyes Narrative: No scleral icterus Neck no lymphadenopathy, supple and no JVD Neck Narrative: Trachea midline, no thyroid large meant Resp normal respiratory effort, no retractions, no use of accessory muscles and clear to auscultation bilaterally Resp Narrative: Diffusely diminished Auscultation: Negative for rales, rhonchi or wheezes Cardio regular rate, regular rhythm, S1 normal heart sound, S2 normal heart sound, no murmurs, no rub, no gallops, no clicks and no JVD GI normal to inspection, nondistended, normoactive bowel sounds, soft to palpation and non-tender Extremity Extremity Narrative: Swelling at right ankle with pain during range of motion and tenderness with palpation to the distal tibia and fibula region along with the lateral malleolus, ecchymosis is also present in this area but less purple than yesterday, knee on the right side shows an effusion and pain with flexion but patient is able to perform her straight leg raise without any difficulty, no cyanosis or clubbing, left lower extremity without any edema Skin no wounds, skin turgor normal, no jaundice, no petechiae and no mottling Skin Narrative: Ecchymosis at right ankle and right knee as noted, right radial artery healing well without any real tenderness or ecchymosis present Neuro oriented x3, CN's II-XII intact bilaterally, moves all extremities, no focal motor deficits and no sensory deficits noted Speech: speech normal Psych affect normal Psych Narrative: Very pleasant, interacts appropriately Assessment & Plan Assessment/Plan (1) STEMI (ST elevation myocardial infarction): QUALIFIERS: Involved coronary artery: right coronary artery Qualified Code(s): I21.11 - ST elevation (STEMI) myocardial infarction involving right coronary artery (2) Leukocytosis: (3) Right ankle pain: (4) Closed navicular fracture of right ankle: QUALIFIERS: Encounter type: initial encounter Fracture alignment: nondisplaced Qualified Code(s): S92.254A - Nondisplaced fracture of navicular [scaphoid] of right foot, initial encounter for closed fracture (5) Sprain of anterior talofibular ligament of right ankle: QUALIFIERS: Encounter type: initial encounter Qualified Code(s): S93.491A - Sprain of other ligament of right ankle, initial encounter (6) Fracture of right foot: (7) Effusion, right knee: PLAN: Plan STEMI-inferior -Status post PCI to RCA -Continue Brilinta 90 mg p.o. twice daily -Continue atorvastatin 40 mg nightly -Continue Coreg 3.125 -Continue lisinopril 2.5 mg daily -Continue home aspirin -Echocardiogram performed on 12/25/2022 and showed an EF of 60 to 65% with hypokinesis of the mid inferior and lateral espinal and no evidence of diastolic dysfunction -Hemoglobin A1c was 5.8 -Cholesterol panel showed a total cholesterol of 102/LDL 31/HDL 50/triglycerides 105 -Cardiology following-appreciate input Leukocytosis -Resolved Left ankle sprain/navicular fracture -Possible fracture on x-rays therefore CT performed and fracture confirmed -Podiatry consulted and has evaluated the patient--> recommend Cam walking boot with weightbearing as tolerated -PT consultation for gait training Right knee effusion -Recent total knee arthroplasty -X-ray shows no signs of fracture however he does have a joint effusion -Suspect traumatic with possible blood given his STEMI and anticoagulation utilized in the [employer] and now on dual antiplatelet therapy -We will likely need ongoing physical therapy but will have him follow-up with his orthopedic surgeon after discharge Hypertension -Medication changes as noted above -Pressures are well controlled with this regimen COPD -As needed albuterol -Monitor saturations -Patient has been weaned to room air Hyperlipidemia -Continue atorvastatin at increased dose noted above -Lipid profile is satisfactory as noted above Insomnia -Hold home extra strength Tylenol -As needed melatonin Hearing loss -Continue outpatient follow-up History of tobacco abuse/THC abuse -Remote -Recommend ongoing cessation Alcohol use -Patient reports he drinks 2 beers daily--> approximately 12 pack a week -No concern for withdrawal DVT prophylaxis -Enoxaparin daily CODE STATUS -Full code Charges/Coding Visit Charges Inpatient E&M: 27384 [facility] Hosp L3
[2022-12-25] MEDS: Acetaminophen 325 MG Tablet 650 MG PO ×2 (12:36→19:32)
--- NOTE | 2022-12-25 15:32 | PN.CARD_ITS ---
Subjective Subjective Doing well from a cardiac standpoint. Objective Data Vital Signs: Vital Signs Temp Pulse Resp BP Pulse Ox O2 Del Method O2 Flow Rate 97.6 F L 73 16 118/77 96 Room Air 2 12/25/22 15:04 12/25/22 15:04 12/25/22 15:04 12/25/22 15:04 12/25/22 15:04 12/25/22 15:04 12/24/22 18:00 Oxygen Flow Rate (L/min) 2 Oxygen Delivery Method Room Air Weight: 175 lb 4.28 oz Body Mass Index (BMI) 28.1 Intake & Output: Intake and Output for Last 24 Hours 12/23/22 12/24/22 12/25/22 23:59 23:59 23:59 Intake Total 180 / 180 1420 / 1420 Output Total 1150 / 1950 1900 / 1900 Balance -970 / -1770 -480 / -480 Lab / Micro Data 12/25/22 03:30 12/25/22 03:30 Labs: Laboratory Results - last 24 hr 12/24/22 13:15: Hemoglobin A1c 5.8 H, Triglycerides 105, Cholesterol 102, LDL Cholesterol 31, VLDL Cholesterol 21, HDL Cholesterol 50 12/25/22 03:30: WBC 9.2, RBC 3.93 L, Hgb 13.2, Hct 40.7, MCV 103.6 H, MCH 33.6 H , MCHC 32.4, RDW Std Deviation 49.3 H, RDW Coeff of Annie 12.9, Plt Count 187, MPV 9.7, Sodium 143, Potassium 4.2, Chloride 112 H, Carbon Dioxide 27.0, Anion Gap 4 L, BUN 10, Creatinine 0.77, Estim Creat Clear Calc 60.26, Est GFR (MDRD) Af Amer 128, Est GFR (MDRD) Non-Af 106, BUN/Creatinine Ratio 13.0, Glucose 110 H, Calcium 7.9 L, Phosphorus 3.5, Magnesium 2.2, Total Bilirubin 0.40, AST 204 H, ALT 60, Alkaline Phosphatase 53, Total Protein 6.0 L, Albumin 2.8 L, Globulin 3.2, Albumin/Globulin Ratio 0.9, TSH 1.16 Cardiology Labs/Tests 12/24/22 13:15: Hemoglobin A1c 5.8 H, Triglycerides 105, Cholesterol 102, LDL Cholesterol 31, VLDL Cholesterol 21, HDL Cholesterol 50 12/25/22 03:30: WBC 9.2, RBC 3.93 L, Hgb 13.2, Hct 40.7, MCV 103.6 H, MCH 33.6 H , MCHC 32.4, Plt Count 187, MPV 9.7, Sodium 143, Potassium 4.2, Chloride 112 H, Carbon Dioxide 27.0, Anion Gap 4 L, BUN 10, Creatinine 0.77, Est GFR (MDRD) Af Amer 128, Est GFR (MDRD) Non-Af 106, BUN/Creatinine Ratio 13.0, Glucose 110 H, Calcium 7.9 L, Phosphorus 3.5, Magnesium 2.2, Total Bilirubin 0.40 Rhythm: EKG: ECHO: Stress Test: Cardiac Cath: PCI: CT Surgery: Holter monitor: EPS: PPM: CXR: Chest CT Scan: Radiography Diagnostic Testing: Radiology Impression Echocardiogram 12/24/22 15:09 Interpretation Summary The estimated ejection fraction is 60-65 %. No evidence for diastolic dysfunction. Hypokinesis of the mid inferior and lateral espinal Ordering Physician: Ana Madden Referring Physician: Malachi Armando Performed By: Lottie Ribeiro, RDCS, RVT Ankle X-Ray 12/24/22 16:45 IMPRESSION: Possible cortical avulsion fracture at the dorsal aspect of the navicular. Electronically Signed: Lg Luna MD at 18:06 EDT , Lower Extremity CT 12/25/22 07:15 IMPRESSION: 1. Small bony density on the dorsal aspect of the navicular bone close to the talonavicular joint corresponding to the x-ray abnormality consistent with small avulsion fracture of undetermined age. 2. Mild irregularity of the lateral aspect of the cuboid close to the calcaneocuboid joint consistent with small fracture fragments arising from the cuboid. 3. Diffuse soft tissue swelling and edema of the ankle. Electronically Signed: Hector Hopson MD at 9:47 EDT , Knee X-Ray 12/25/22 09:46 IMPRESSION: 1. Status post total knee arthroplasty. 2. No acute fracture or dislocation. 3. Moderate joint effusion. Electronically Signed: Rudi Banks MD at 10:35 EDT , Physical Exam Const alert and oriented x3 HEENT normocephalic Eyes no scleral icterus Resp normal respiratory effort Cardio regular rate Skin no rashes or lesions noted Psych mental status grossly normal Assessment & Plan Assessment/Plan (1) STEMI (ST elevation myocardial infarction): QUALIFIERS: Involved coronary artery: right coronary artery Qualified Code(s): I21.11 - ST elevation (STEMI) myocardial infarction involving right coronary artery PLAN: Treated with drug-eluting stent placement. Continue current medications. Okay to transfer him to the PCU. If patient continues to do well and has no overnight events then he can be discharged home tomorrow and can follow-up with [facility] as an outpatient
--- NOTE | 2022-12-25 18:45 | CASEMGMT ---
RAYA OLIVEIRA Discharge Planning Assessment: Face to Face with patient for initial transition planning/care coordination assessment. RAYA OLIVEIRA introduced self and role at [facility], Pt very SAXMAN, but expressed that he could understand what I was saying. Pt agreeable to participating in the assessment. Care providers, pharmacy, and demographics verified. 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 Pt states he is very active and cares for his 3 acres [address] land without difficulty. Transportation: Pt drives DME: States his is bringing in a wheeled walker. Has a walk-in shower. SNF/HHC: Denies any previous providers. Noted therapy recommended additional home PT/OT. Additional therapy was discussed with pt and options provided including home therapy (would need to remain at home and be homebound) or outpatient therapy at an outpatient center like [facility] or [facility]. Pt states he will probably just go to [facility] but also stated he would prefer to make these decisions with his and also would like to know more about his knee swelling and the orthopedic recommendations for his fx ankle. Script for outpt PT/OT prepared and placed on chart if pt decides to get outpatient therapy at discharge and if still consistent with orthopedic recommendations. Discussed Brilinta at discharge and one month free card provided to pt. Explained to pt that he will need to check co-pays on future months due to the cost of this medication. Pt requested a cheaper medication and this RAYA OLIVEIRA reinforced need to use the Brilinta for the first month and to check his co-pay prior to deciding on the need to change medications. 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 Plan: Return home with support of his , Brilinta savings card and possible outpatient therapy Waqas Lara RN CM
[2022-12-25] MEDS: Atorvastatin Calcium 40 MG Tablet PO (19:32)
[2022-12-25] MEDS: MELATONIN 3 MG TABLET PO (22:29)
[2022-12-26 03:00] VITALS: BP 122/57; PULSE 74; RESP 16; TEMP 36.8; O2SAT 95
[2022-12-26 04:30] VITALS: BP 122/57; PULSE 72; RESP 16; TEMP 36.8; O2SAT 95
[2022-12-26 04:41] VITALS: BMI 29.8
[2022-12-26 05:56] LABS: Anion Gap 2 (5-15); BUN 8 mg/dL (7-18); BUN/Creat Ratio 11.8 RATIO (10-20); Calcium,Total 8.2 mg/dL (8.5-10.1); Chloride 110 mmol/L (98-107); Creatinine, Serum 0.68 mg/dL (0.70-1.30); EST Glomerular Filtration Rate 122 mL/min (>60); Est Glom Filt Rate - Afr Amer 148 mL/min (>60); Estimated Creatinine Clearance 60.26 ml/min; Glucose 100 mg/dL (74-106); Potassium 3.7 mmol/L (3.5-5.1); Sodium Level 139 mmol/L (136-145)
[2022-12-26 09:00] VITALS: BP 136/86; PULSE 74; RESP 18; TEMP 36.8; O2SAT 98
[2022-12-26] MEDS: Lisinopril 2.5 MG Tablet PO (09:21)
[2022-12-26] MEDS: Enoxaparin 40 MG/0.4 ML Syringe SC (09:22)
[2022-12-26] MEDS: TICAGRELOR 90 MG TABLET PO (09:22)
[2022-12-26] MEDS: Carvedilol 3.125 MG TABLET PO (09:22)
[2022-12-26] MEDS: Aspirin 81 MG TAB.CHEW PO (09:22)
[2022-12-26] MEDS: Multivitamins,Therapeutic Tablet 1 TABLET PO (09:22)
--- NOTE | 2022-12-26 09:51 | PCM.DC.SUM ---
Providers Date of Admission: 12/24/22 Date of Discharge: 12/26/22 Primary Care Physician: Dr. Lurdes Martinez MD Consultations 12/24/22 15:09 Consult: Cardiology Routine Consulting Provider: Sonia Armando Reason for Consult: STEMI EMERGENT Consult: Yes Notified: Yes Date Notified: 12/24/22 Time Notified: 15:12 Method of Notification: Verbal 12/25/22 07:15 Consult: Podiatry Routine Consulting Provider: Esteban Molina Reason for Consult: R ankle fracture EMERGENT Consult: No Notified: Yes Date Notified: 12/25/22 Time Notified: 08:13 Method of Notification: Verbal Reason For Visit: STEMI Diagnosis Discharge Diagnosis (1) STEMI (ST elevation myocardial infarction): Status: Acute Code(s): I21.3 - ST elevation (STEMI) myocardial infarction of unspecified site Qualifiers: Involved coronary artery: right coronary artery Qualified Code(s): I21.11 - ST elevation (STEMI) myocardial infarction involving right coronary artery Medications at Discharge Home Medications albuterol sulfate 90 mcg/actuation aerosol inhaler (Ventolin HFA) 2 puff inhalation BID PRN COPD 03/17/16 multivitamin with folic acid 400 mcg tablet (Thera) 1 tab PO DAILY Vitamin 03/17/16 omega 0-twb-tqo-fish oil 300 mg-1,000 mg capsule (Fish Oil) 1 cap PO DAILY Vitamin 11/13/21 aspirin 81 mg capsule 81 mg PO DAILY heart 11/25/21 diphenhydramine 25 mg-acetaminophen 500 mg tablet (Tylenol PM Extra Strength) 1 tab PO QHS PRN Sleep 11/25/21 ascorbic acid (vitamin C) 500 mg tablet (C-500) 500 mg PO DAILY Vitamin 12/24/22 cholecalciferol (vitamin D3) 50 mcg (2,000 unit) tablet 2,000 unit PO DAILY vitamin 12/24/22 magnesium 200 mg tablet 400 mg PO DAILY supplement 12/24/22 potassium 99 mg tablet 99 mg PO DAILY supplement 12/24/22 atorvastatin 40 mg tablet 40 mg PO QHS #30 tabs 12/26/22 carvedilol 3.125 mg tablet 3.125 mg PO BID #60 tabs 12/26/22 clopidogrel 75 mg tablet (Plavix) 75 mg PO DAILY #30 tabs 12/26/22 lisinopril 2.5 mg tablet 2.5 mg PO DAILY #30 tabs 12/26/22 oxycodone 5 mg tablet 5 mg PO Q6H PRN PRN Pain Score 6-10 5 days #20 tabs 12/26/22 Hospital Course Procedures 2-D Echocardiogram, Cardiac catheterization, EKG and - (CT right lower extremity/right knee x-rays) Summary of Care Provided Minutes Spent on Discharge: 39 Hospital Course: JIMBO WEATHERS, is a 72 white male who presented to the emergency department at [facility] on 03/26/2023 with chest pain. The patient reported that he was making lunch and began to feel weak and had chest discomfort on the left side. He stated his chest felt heavy and he started to become nauseated and went over the sink to throw up. He then woke up on the ground in a pool of sweat. He did vomit and denied hurting himself with falling initially on presentation however later after his catheterization he complained of right foot and knee pain.. EMS was called and STEMI alert was called prior to hospital arrival based on prehospital EKG. He had a known history of hypertension and hyperlipidemia. He also has a history of tobacco abuse. He was taken to the [facility] where he was found to have complete RCA occlusion and was treated with HUGO to RCA. His EF was preserved noted by LV gram done with cath but did note mild hypokinesis of the basal inferior wall. Vital signs at presentation demonstrated temperature of 98.5, blood pressure 135/77, heart rate 80, respiratory rate 20, oxygen saturations are 97% on 2 L nasal cannula. CBC shows a mild leukocytosis with a white count of 14.4 but is otherwise unremarkable. Coags are unremarkable. His chemistry panel showed mild hyponatremia with a sodium of 134 and hypokalemia with a potassium of 3.4. His glucose was 149. Initial troponin was 61. Initial EKG shows inferior STEMI. He was started on low-dose lisinopril at 2.5 mg which is a reduction from his home dose since we had added Coreg as well. His atorvastatin was increased from 20 to 40 mg by cardiology and postcardiac catheterization he was maintained on his home aspirin and Brilinta was added. His cholesterol overall appeared well controlled on his lipid panel. We did obtain a hemoglobin A1c and while he is not diabetic it appears that he has some insulin resistance as his hemoglobin A1c was 5.8. An echocardiogram was obtained and showed an EF of 60 to 65% with no evidence of diastolic dysfunction and hypokinesis of the mid inferior and lateral espinal. He was seen by cardiac rehab and will be continued on this after discharge. With regards to his right ankle we obtained imaging which was suggestive of a navicular fracture but not confirmatory. We therefore obtained a CT of his lower extremity which did confirm his navicular fracture. Podiatry was consulted and felt that this would heal in 4 to 6 weeks and recommended a short cam boot be placed and he may be weightbearing as tolerated with an assistive device upon ambulation. He has a history of a right total knee replacement and we did obtain x-rays. There was no periprosthetic fracture or any other bony abnormalities noted however there was a effusion noted on imaging which was noted on physical exam as well. He was able to perform straight leg raise without any difficulty and his flexion mobility improved with time. His knee replacement was done remotely by Dr. Ware, who has since retired. I recommend he follow-up with an orthopedic surgeon of his choice as he was not yet sure who he would like to see. He is to follow-up with Dr. Molina in 2 weeks. We have asked him to call and make an appointment to follow-up with Dr. Llanes within the next 4 weeks. He has follow-up with his primary care physician within the next 2 weeks. New prescriptions were sent to his local pharmacy and consist of lisinopril 2.5 mg daily, Brilinta 3.125 mg twice daily, atorvastatin 40 mg daily, aspirin 81 mg daily, and Plavix 75 mg daily. We also write a short prescription for oxycodone to help treat pain in his foot. He was given a prescription for physical therapy for outpatient follow-up given his orthopedic injuries. He was discharged home in stable condition on 12/26/2022 Discharge diagnoses: STEMI inferior with HUGO to RCA Leukocytosis-resolved Left ankle sprain Left navicular fracture Right knee effusion status post total knee arthroplasty Hypertension COPD Hyperlipidemia Insulin resistance Insomnia Hearing loss History of tobacco abuse THC abuse Daily alcohol use Physical Exam Const alert, oriented x3, no apparent distress, no limitations and well nourished Constitutional Narrative: Overweight, older white male, sitting up on the edge of the bed working with physical therapy, at bedside, appears comfortable and nontoxic, General Appearance: cooperative, comfortable, well kempt and well developed Orientation / Consciousness: awake, oriented to person, oriented to place and oriented to time Exam Limitations: no limitations Nutritional Appearance: overweight HEENT normocephalic, head/scalp atraumatic and moist oral mucous membranes; Negative for hearing grossly normal bilaterally HEENT Narrative: Mallampati 2, no thrush, patient is markedly hard of hearing and deaf in his left ear Eyes PERRL, EOMs intact bilaterally and conjunctivae normal Eyes Narrative: No scleral icterus Neck no lymphadenopathy, supple, no JVD and no carotid bruits Neck Narrative: Trachea midline, no thyroid enlargement Resp normal respiratory effort, no retractions, no use of accessory muscles and clear to auscultation bilaterally Resp Narrative: Diffusely diminished Auscultation: Negative for rales, rhonchi or wheezes Cardio regular rate, regular rhythm, S1 normal heart sound, S2 normal heart sound, no murmurs, no rub, no gallops, no clicks and no JVD GI normal to inspection, nondistended, normoactive bowel sounds, soft to palpation and non-tender Extremity Extremity Narrative: Cam boot in place, right knee seems to be less swollen today and ecchymosis is improving, patient ambulates fairly well with a cam boot in place using a wheeled walker, no cyanosis or clubbing, no left lower extremity edema Skin no wounds, skin turgor normal, no jaundice, no petechiae and no mottling Skin Narrative: Ecchymosis at foot and knee Neuro oriented x3, CN's II-XII intact bilaterally, moves all extremities, no focal motor deficits and no sensory deficits noted Speech: speech normal Psych affect normal Psych Narrative: Very pleasant, interacts appropriately Weight / BMI Weight Weight: 83.9 kg Body Mass Index (BMI) 29.8 ABG / Lab / Microbiology Data 12/25/22 03:30 12/26/22 04:34 Laboratory: Laboratory Results - last 24 hr 12/26/22 04:34: Sodium 139, Potassium 3.7, Chloride 110 H, Carbon Dioxide 27.0, Anion Gap 2 L, BUN 8, Creatinine 0.68 L, Estim Creat Clear Calc 60.26, Est GFR (MDRD) Af Amer 148, Est GFR (MDRD) Non-Af 122, BUN/Creatinine Ratio 11.8, Glucose 100, Calcium 8.2 L Radiography Diagnostic Testing: Radiology Impression Echocardiogram 12/24/22 15:09 Interpretation Summary The estimated ejection fraction is 60-65 %. No evidence for diastolic dysfunction. Hypokinesis of the mid inferior and lateral espinal Ordering Physician: Ana Madden Referring Physician: Malachi Armando Performed By: Lottie Ribeiro, YAMEL, RVT Knee X-Ray 12/25/22 09:46 IMPRESSION: 1. Status post total knee arthroplasty. 2. No acute fracture or dislocation. 3. Moderate joint effusion. Electronically Signed: Rudi Banks MD at 10:35 EDT , D/C Instructions Discharge Diet: Low fat / Low cholesterol Discharge Activity: Use Walker Weight Bearing Status: Weight bearing as tolerated Keep extremity elevated above heart level: Right Leg Meaningful Use Info Meaningful Use Diagnoses (Choose all that apply): AMI AMI/Post PCI/Angioplasty Aspirin given w/in 24hrs of arrival?: Yes ASA at discharge?: Yes Statins at discharge?: Yes Jordan/ARB at discharge?: Yes Beta Miguel at discharge?: Yes Done w/ Acute [place] measure.: Yes Discharge Plan Admission Admit Date/Time: 12/24/22 15:18 Primary Reason for Your Visit: Chest Pain Attending Provider: Ana Madden Primary Care Provider: Lurdes Martinez Consulting Providers: Sonia Armando; Esteban Molina Instructions Additional Instructions / Restrictions: 1. Please follow-up with orthopedic surgery of your choice with regards to your right knee 2. Ambulate weightbearing as tolerated only with your cam boot in place and use a walker for safety until your balance improves, ice foot and knee 3 times a day for 15 minutes, use Jordan bandage for compression to help with swelling in your foot and elevate leg is much as possible 3. Please call and make an appointment for physical therapy Discharge Orders/Prescriptions Prescriptions: New atorvastatin 40 mg Tablet 40 mg PO QHS Qty: 30 1RF carvedilol 3.125 mg Tablet 3.125 mg PO BID Qty: 60 1RF lisinopril 2.5 mg Tablet 2.5 mg PO DAILY Qty: 30 1RF oxycodone 5 mg Tablet 5 mg PO Q6H PRN PRN (Reason: Pain Score 6-10) 5 Days Qty: 20 0RF clopidogrel [Plavix] 75 mg tablet 75 mg PO DAILY Qty: 30 11RF Continued omega 0-byv-zhy-fish oil [Fish Oil] 300-1,000 mg capsule 1 cap PO DAILY albuterol sulfate [Ventolin HFA] 1 INHALER inhaler 2 puff inhalation BID PRN (Reason: COPD) Patient Comments: BREATHING multivitamin with folic acid [Thera] 1 TABLET tablet 1 tab PO DAILY Patient Comments: SUPPLEMENT diphenhydramine-acetaminophen [Tylenol PM Extra Strength] 25-500 mg Tablet 1 tab PO QHS PRN (Reason: Sleep) aspirin 81 mg Capsule 81 mg PO DAILY potassium 99 mg tablet 99 mg PO DAILY magnesium 200 mg tablet 400 mg PO DAILY cholecalciferol (vitamin D3) 50 mcg (2,000 unit) tablet 2,000 unit PO DAILY ascorbic acid (vitamin C) [C-500] 500 mg tablet 500 mg PO DAILY Discontinued atorvastatin 20 MG tablet 20 mg PO QHS Patient Comments: CHOLESTEROL lisinopril 20 MG tablet 20 mg PO DAILY Patient Comments: BLOOD PRESSURE Referrals / Follow Up: Lurdes Martinez MD [Primary Care Provider] - Within 2 Weeks Merrick Llanes MD [Med Staff - Active Staff] - Within 1 Month (call tomorrow to schedule appointment) Esteban Molina DPM [Med Staff - Active Staff] - See Referral Note (two weeks from initial injury, call for appointment) Care Physician,No Primary [Non-Staff] - Disposition Disposition (needs filled in before D/C Order can be placed): Home, Self Care Charges/Coding Visit Charges Inpatient E&M: 59581 Disch Hosp >30min
[2022-12-26 09:59] VITALS: BP 122/57; PULSE 74; RESP 18; TEMP 36.8; O2SAT 98
--- NOTE | 2022-12-26 10:46 | NURSING ---
Patient discharged home per orders. Transport to main entrance by staff in wheelchair. to transport patient home in private vehicle.
== END 2022-12-26 11:03 | disposition home or self-care (01) | DRG 247 ==
LOC: ED 13:37 → ICU 13:53 → PCU 12-25 22:49
PROVIDERS: Admitting Provider Specialist; Emergency Provider Emergency Medicine; PCP Family Medicine; Referring Provider Specialist; Visit Provider Internal Medicine
DX: I21.11 ST elevation (STEMI) myocardial infarction involving right coronary artery (principal); E87.1 Hypo-osmolality and hyponatremia; D72.829 Elevated white blood cell count, unspecified; E78.00 Pure hypercholesterolemia, unspecified; E87.6 Hypokalemia; S80.01XA Contusion of right knee, initial encounter; J44.9 Chronic obstructive pulmonary disease, unspecified; F12.10 Cannabis abuse, uncomplicated; I10 Essential (primary) hypertension; I25.10 Atherosclerotic heart disease of native coronary artery without angina pectoris; S93.491A Sprain of other ligament of right ankle, initial encounter; S92.254A Nondisplaced fracture of navicular [scaphoid] of right foot, initial encounter for closed fracture; W18.30XA Fall on same level, unspecified, initial encounter; H91.90 Unspecified hearing loss, unspecified ear; G47.00 Insomnia, unspecified; Z79.82 Long term (current) use of aspirin; Z79.899 Other long term (current) drug therapy; Z87.891 Personal history of nicotine dependence; Z96.651 Presence of right artificial knee joint
CPT/HCPCS: 36415; 73560; 73610; 73700; 80048; 80053; 80061; 83036; 83735; 84100; 84443; 84484; 85025; 85027; 85610; 85730; 92941; 93005; 93306; 93458; 94668; 97162; 97166; 97530; 97802; 99152; 99285; C1887; J7030; Q9957; Q9967; A4216; C1725; C1769; C1874; C1894; C8929; C9606; J1327; J2405

== ENCOUNTER → 2023-01-05 | Outpatient (CLI) | payer MEDICARE, OTHER, SELFPAY ==
--- NOTE | 2023-01-05 13:06 | PCM.CR.HP2 ---
CR - History & Physical General Arrival date:: 01/05/23 Arrival time:: 13:06 Date of Referral:: 12/27/22 Date of CR Evaluation:: 01/05/23 Referring Physician: Dr. Juan Oglesby Primary Diagnosis: PCI with coronary stent History of Present Cardiac Event Onset Date PTCA or coronary stenting:: Yes Vessel: RCA Medications Ambulatory Orders Medication Instructions Recorded albuterol sulfate 90 mcg/actuation 2 puff inhalation BID PRN COPD 03/17/16 aerosol inhaler (Ventolin HFA) multivitamin with folic acid 400 1 tab PO DAILY Vitamin 03/17/16 mcg tablet (Thera) omega 0-qrc-ert-fish oil 300 1 cap PO DAILY Vitamin 11/13/21 mg-1,000 mg capsule (Fish Oil) aspirin 81 mg capsule 81 mg PO DAILY heart 11/25/21 diphenhydramine 25 1 tab PO QHS PRN Sleep 11/25/21 mg-acetaminophen 500 mg tablet (Tylenol PM Extra Strength) ascorbic acid (vitamin C) 500 mg 500 mg PO DAILY Vitamin 12/24/22 tablet (C-500) cholecalciferol (vitamin D3) 50 2,000 unit PO DAILY vitamin 12/24/22 mcg (2,000 unit) tablet magnesium 200 mg tablet 400 mg PO DAILY supplement 12/24/22 potassium 99 mg tablet 99 mg PO DAILY supplement 12/24/22 atorvastatin 40 mg tablet 40 mg PO QHS #30 tabs 12/26/22 carvedilol 3.125 mg tablet 3.125 mg PO BID #60 tabs 12/26/22 clopidogrel 75 mg tablet (Plavix) 75 mg PO DAILY #30 tabs 12/26/22 lisinopril 2.5 mg tablet 2.5 mg PO DAILY #30 tabs 12/26/22 oxycodone 5 mg tablet 5 mg PO Q6H PRN PRN Pain Score 12/26/22 6-10 5 days #20 tabs Allergies Allergies Sulfa (Sulfonamide Antibiotics) Allergy (Verified 07/02/22 09:25) Itching Anesthetics - Amide Type - Select A Adverse Reaction (Severe, Verified 07/02/22 09:25) Nausea/Vom/Diarrhea Anesthetics - Neela Type- Parabens Adverse Reaction (Severe, Verified 07/02/22 09:25) Nausea/Vom/Diarrhea morphine Adverse Reaction (Severe, Verified 07/02/22 09:25) Nausea/Vom/Diarrhea related to past anesthesia Sleep Disorder Evaluation Hx of Sleep Apnea: No Do you snore loudly (louder than talking or can be heard through closed doors)?: No Do you often feel tired/ fatigued/ sleepy during daytime?: No Has anyone observed you stop breathing during sleep?: No History of Hypertension (for STOP score): Yes STOP Results: Negative Advanced Directives Advanced Directives 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 Advance Directives Information Provided: Yes Advance Directives on File: No DNR Order?:: No Past Medical History Covid-19 Screening Physicial Symptoms Other Clinical Concerns Exposure Risk Pertinent Comorbidities 65 years or older:: Yes Has a serious heart condition:: Yes Past Medical Illness Past Medical History (Updated 01/03/23 @ 00:01 by Background Daemgeronimo) Alcohol use Z72.89 2 beers day Arthritis M19.90 Asthma J45.909 Chronic neck and back pain M54.2, M54.9, G89.29 COPD (chronic obstructive pulmonary disease) J44.9 First degree AV block I44.0 Former smoker Z87.891 quit 2018, smoked 43 years Hearing disorder of both ears H91.93 Deaf Left ear, Hearing aid right Heart murmur R01.1 High cholesterol E78.00 History of blood transfusion Z92.89 > 50yrs ago, no reaction History of colon polyps Z86.010 History of high cholesterol Z86.39 History of hypertension Z86.79 HTN (hypertension) I10 controlled on meds Hyperlipidemia E78.5 Knee pain M25.569 Marijuana use F12.90 weekly STEMI (ST elevation myocardial infarction) I21.3 Past Surgical History Past Surgical History (Updated 12/27/22 @ 13:51 by Anjelica BAKER, PA) H/O bilateral cataract extraction Z98.41, Z98.42 History of back surgery Z98.890 2013 History of colonoscopy Z98.890 History of shoulder surgery Z98.890 Hx of total knee arthroplasty Z96.659 2016 S/P right coronary artery (RCA) stent placement Z95.5 Successful drug-eluting stent placement to proximal RCA. Medical therapy for OM1 stenosis at this time. 12/24/22 (NN) Family History Summary Family History Sister Crohn disease Mother Hypertension Hypercholesteremia Osteoarthritis Father Alcoholism Social History Smoking History Smoking Status: Former smoker Alcohol Use Alcohol Usage: Yes Substance Abuse Hx Substance Use: Yes Occupation Occupation (List type of work in comments):: Retired Social Environment Status Marital Status: Current Living Arrangements Living Environment:: Spouse Children How many children do you have?: 2 Do any of your children live nearby?: Yes Safety Do you feel safe in your surroundings?: Yes Assistance Do you need any assistance at home?: no Review of Systems Review of Systems Hints Review of Present Symptoms: Reports Appetite - Normal and Sleep - Normal; Denies Shortness of Breath at Rest, Shortness of Breath with Exertion, PVD, Operative Discomfort, Angina, Wound Healing, Dizziness/Lightheadedness, Fatigue, Heart Arrhythmia/Irregularities, Appetite - Special Diet or Sexual Changes Pain Is Patient Pain Free?: No Pain Location: other (ffot) Pain Level: 8/10 Risk Factor Assessment Vital Signs Pulse Ox: 96 Blood Pressure: 118/77 Pulse Pulse Rate: 73 Hypertension How long have you been treated?: 15 years Obesity Height: 5 ft 6 in Weight:: 175 lb 6.4 oz Weight in Pounds: 175.4 lbs Body Mass Index (BMI): 28.3 Physical Inactivity Physical Inactivity: Recreational activity Risk Stratification Risk Guidelines: Lowest Risk: Risk Factor for Sedentary Lifestyle, Moderate Risk: Risk Factor for Smoking, Risk Factor for Obesity and Risk Factor for Depression and Highest Risk: Risk Factor for Dyslipidemia, Risk Factor for Diabetes and Risk Factor for Hypertension For Smoking Smoking Risk Guidelines For Dyslipidemia Dyslipidemia Risk Guidelines For Diabetes Mellitus Diabetes Risk Guidelines For Obesity/Overweight Obesity/Overweight Risk Guidelines For Hypertension Hypertension Risk Guidelines For Sedentary Lifestyle Sedentary Lifestyle Risk Guidelines For Depression Depression Risk Guidelines Family History Family History Sister Crohn disease Mother Hypertension Hypercholesteremia Osteoarthritis Father Alcoholism Motivation Motivation to Participate On a scale of 1 to 10, how prepared are you to commit to attending program?: 2 What do you see as barriers to successfully being able to complete the program?: broken foot What do you see as the benefits of succesfully completing the program? 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
[2023-01-05 13:13] VITALS: BP 118/77; PULSE 73; O2SAT 96
--- NOTE | 2023-01-05 13:13 | CR.ITP_ITS ---
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) Stage of change r/t lifestyle modifications:: Contemplation Gave educational material for:: Treating Heart Disease, How The Heart Works, What it means to have Heart Disease, How Coronary Artery Disease is Diagnosed, Heart Procedures, What Heart Medications Do, Risk Factors & Modifications, Living an Active Life, Nutrition, Emotions & Heart Disease, Stress Management & Relaxation and Sleep Disorders & Heart Disease Education/Goals Cardiac Rehabilitation Goals Personal Goals: Initial Assessment: Improve energy level, Get back to work, or to resume activities faster and Improve muscle strength and endurance Scale for measuring improvement of personal goals Diagnosis & Disease Process Outcomes/Goals: Pt IDs own risk factors & lifestyle modifications by Session 10, Verbalizes symptoms of angina & response by session 3., Pt independently manages and Other Additional Outcomes/Goals: Plan/Interventions: Assist Pt to ID & engage in lifestyle modification to reduce CVD risk, Instruct on individual risk factors, Review symptoms of angina & emergency actions, Review secondary diagnosis & identify educational needs. and Other see comment 30 day Reassessments:: Not Met 30 day Reassessments:: Not Met 30 day Reassessments:: Not Met 30 day Reassessments:: Not Met Final Reassessments:: Not Met Safety Referral to [facility] Case Management: No Fall Risk Assessed:: Yes Assistive Devices:: Cane (Pt is in a walking boot due to foot fracture. PT also has a cane at this time due to the fracture.) Exercise - Initial Assessment Visit Date of Eval: 01/05/23 (initial eval ) Mets: Pre-: >3 METS for 30 minutes by discharge, >5 METS for 30 minutes by discharge, >7 METS for 30 minutes by discharge and Unable to meet goal due to: (see comment below) Physician Prescribed Exercise Modalities: Rower, Airdyne, NuStep, SciFit and Lateral Glenn Frequency: 3x/week for 12 weeks [36 sessions] Intensity: 60-80% of age predicted maximum heart rate reserve Current METSs:: 3 Target Heart Rate:: 89-104 Resting Blood Pressure: 118/77 EKG Type: NSR Outcomes & Goals Goals:: Verbalizes understanding of THR, RPE & goal METS by session 6, Documents in home exercise log/reports 30 min aerobic 5 day/wk by DC, Demonstrates accurate pulse taking by DC and Other additional outcome/goals: see below Intervention & Plan Exercise Program Goals: Instruct on personal THR & RPE, Instruct on MET level & personal MET goal, Show patient to take own pulse /validate performance until accurate, Instruct on home exercise and Other additional plan/int Physical Activity Home Exercise Physical Activity - Home Exercise: Safe Exercise, Warm-up, Self-monitoring, Cool-Down, Home Exercise > 30 min Daily and Sitting Time <3 hours/daily Outcomes & Goals Outcomes/Goals: Demonstrates correct Warm-up/exercise Cool-Down (S3) if = 2.5 METs, Verbalizes symptoms of exercise intolerance by Session 3 (S3), Demonstrate safe equipment use (S3) & follows exercise prescrition (6) and Other: See below Intervention & Plan Plan/Intervention: Instruct warm-up & cool-down if exercising at > 2 METs, Instruct on symptoms of exercise intolerance & actions to take, Instruct & mon itor on saf, Assess intial functional capacity & safety risk and Other See below Nutrition - Initial Assessment Program Goals Nutrition Program Goals Patient has diagnosis of Hyperlipidemia (ICD E78)?: Yes Visit Date of Eval: 01/05/23 (initial eval ) Cholesterol/Lipids (Other Core Measures) Determine presence & major risk factors that modify LDL goal: Cigarette smoking, Hypertension or hypertensive medication, Low HDL cholesterol <40 mg/dL*, Family history of premature CHD in Male < 55 years: female <65 yearsFa and Age men > 45 years; women >/= 55 years Outcomes/Goals: Pt IDs own risk factors & lifestyle modifications by Session 10, Verbalizes symptoms of angina & response by session 3., Pt independently manages and Other Additional Outcomes/Goals: Intervention/Plan: Advocate for lipid panel cholesterol medication if applicable, Instruct on personal lipid levels & lipid goals/NCEP guidelines, Instruct on cholesterol and Other additional plan/int Referral to dietitian:: No Diabetes (Other Core Measures) Diabetes Type: Not Applicable Weight Mgt (Other Care) Height: 5 ft 6 in Weight:: 175 lb 6.4 oz BMI: 28.3 Diagnosis Overweight/Obesity BMI> 30% ICD-10 E66: No Diagnosis High BMI/Morbid Obesity BMI> 35% ICD-10 Z68: No Outcomes/Goals: Pt sets, maintains & shows weight loss goal & trend during rehab and Other additional outcomes/goals Intervention/Plan: Instruct on ideal BMI & set weight loss goal w/patient, Assist pt to ID & incorporate diet changes for weight loss by S9, Refer to Structured Weight Loss program as appropriate, Encourage goal of using 250- 300dcal per session for weight loss and Other additional plan/interventions Healthy Eating Habits Will attend diet classes:: Yes Outcomes/Goals:: Consume diet rich in vegs,fruits,whole grain/high fiber,fish,lean meat, Limit sat/trans fats,cholesterol & added salts & sugars and Other additional outcome/goals: Intervention/Plan:: Assess current eating habits and Other Additional plan/interventions Education Gave educational materials for:: Signs & symptoms of hypoglycemia, Signs & symptoms of hyperglycemia, Relate diabetes to coronary artery disease and Healthy eating Core - Initial Assessment Visit Date of Eval: 01/05/23 (initial eval ) Medication Compliance Preventative Medication(s):: KENJI inhibitor, Clopidogrel/P2Y12 inhibit, Statin/lipid and Beta sebastián H/O mental health issues: depression, anxiety, or addiction?: No Doesn?t believe in the benefits of treatment?: No Believes medications are unnecessary or harmful?: No Has a concern about medication side effects?: No Expresses concern over the cost of medications?: No Outcomes/Goals: Verbalizes medications,desired effect & common side effects @ DC, Pt self-reports following medication regimen, Keeps card in wallet w/medications listed by DC and Other additional outcome/goals: Interventions/plans: Instruct on medication effects & side effects, Review medication list w/patient every two weeks, Instruct importance of taking meds as ordered & assist problem solving and Other additional Tobacco Use Tobacco Use: Non-smoker Hypertension Hypertension Diagnosis:: Hypertension ICD-10 I10 Resting Blood Pressure:: 118/77 [place] [employer] Hypertension Guidelines Outcomes/Goals: Able to verbalize/achieve optimal blood pressure <130/80, Incorporates diet changes & exercise for blood pressure control by DC and Other additional outcomes/goals Interventions/plan: Instruct on optimal blood pressure, hypertension & medications, Instruct on effects of sodium, alcohol, stress, exercise &hypertension and Other additional plan/interventions Tobacco Cessation Referral Smoking Cessation Referral:: No Individual Education/Counseling:: No Education Schedule Given:: Yes Psychosocial - Initial Assess VIsit Date of Eval: 01/05/23 (initial eval ) Target Goals Target Goals Outcomes/Goals: See list Psychosocial Outcomes/Goals:: ID's personal stressors & 2 strategies to manage stress by discharge and Other Additional outcome/goals: Intervention/Plan: See List Interventions/Plan:: Assess stressors,coping strategies & signs of derpression on admission, Instruct/assist pt to develop coping & personal stress Mgt strategies, Refer to Behavioral Health if appropriate, Refer to Physician if appropriate, Instruct patient to recognize signs & symptoms of depression, Instruct patient to recog and Other additional plan/intervention Patient Health Questionnaire PHQ-9 Screening Initial Assessment: 1. Little interest or pleasure in doing things: Not at all 2. Feeling down, depressed, or hopeless: Not at all 3. Trouble falling or staying asleep, or sleeping too much: Not at all 4. Feeling tired or having little energy: Not at all 5. Poor appetite or overeating: Not at all 6. Feeling bad about yourself -- or that you are a failure or have let yourself or your family down: Not at all 7. Trouble concentrating on things, such as reading the newspaper or watching television: Not at all 8. Moving or speaking so slowly that other people could have noticed. Or the opposite - being so fidgety or restless that you have been moving around a lot more than usual: Not at all 9. Thoughts that you would be better off , or of hurting yourself in some way: Not at all How difficult have these problems made it for you to do your work, take care of things at home, or get along with other people?: Not difficult at all Total Score: 0 ZOLTAN-Q SV Test Statements CAD is a disease of the arteries in the heart: False Examples of risk factors for heart disease: True Angina is chest pain or discomfort: I Don't Know The benefits of resistance training include: True Eating more meat and dairy products: I Don't Know Anti-platelet medications such as aspirin are important: True The only effective way to manage stress: False An exercise warm-up slowly increases heart rate: I Don't Know Prepared, processed foods usually have high sodium: True Depression is common after a heart attack: True The statin medications lower cholesterol: True To control blood pressure, lower the amount of sodium: I Don't Know If someone gets chest discomfort during walking: False Transfats are partially hydrogenated vegetable oils: I Don't Know Sleep apnea that is not treated increases the risk: I Don't Know To control cholesterol, one should become a vegetarian: I Don't Know Someone knows if he/she is exercising at the right level: True Diabetes cannot be prevented with exercise & health eating: I Don't Know Stress is a large risk for heart attack: I Don't Know A diet that can help lower blood pressure is rich in: True Total Score Total Correct Responses: 11 Self-Efficacy 6-Item Scale Initial Assessment: We would like to know how confident you are in doing certain activities. Please select your confidence level for: Fatigue Select Number: 3 Physical Discomfort or Pain Select Number: 5 Emotional Distress Select Number: 10 Other Symptoms or Health Problems Select Number: 1 Different Tasks and Activities Select Number: 10 Medication Select Number: 10 Total Score:: 6 Nutrition Survey Nutrition Survey Instructions Scoring Instructions Nutrition Survey Initial: Have you lost >10 lbs over the past 2 months without trying?: No Are you following a special diet at home for diabetes, low fat, or low salt?: No Are you interested in meeting with a dietitian for help understanding your diet?: No Do you eat less than 3 meals a day?: Yes Do you eat fatty meats (madison, sausage, ribs, etc), fried foods, desserts, large amounts of salad dressings, margarine, butter, or cheese most days?: Yes Do you have food allergies? [Enter types in comment field]: No Do you eat in restaurants more than 3 times a week?: No Do you season food with salt, seasoning salt, or garlic salt?: Yes Do you used canned, boxed, frozen meals, or soups, seasoning packets?: No Total Score:: 3 Exercise - Final/Discharge Physician Prescribed Exercise Modalities: Rower, Airdyne, NuStep, SciFit and Lateral Field Test Engineer Frequency: 3x/week for 12 weeks [36 sessions] Intensity: 60-80% of age predicted maximum heart rate reserve Current METSs:: 3 Target Heart Rate:: 89-104 Nutrition - 30-Day Assessment Weight Mgt (Other Care) Height: 5 ft 6 in Weight:: 175 lb 6.4 oz BMI: 28.3 Nutrition - 60-Day Assessment Weight Mgt (Other Care) Height: 5 ft 6 in Weight:: 175 lb 6.4 oz BMI: 28.3 Core - Final Assessment Hypertension Resting Blood Pressure:: 118/77 [place] [employer] Hypertension Guidelines Core - 60-Day Assessment Hypertension Resting Blood Pressure:: 118/77 [place] [employer] Hypertension Guidelines Psychosocial - 30-Day Assess Target Goals Target Goals Psychosocial - 60-Day Assess Target Goals Target Goals Psychosocial - 90-Day Assess Target Goals Target Goals Psychosocial - Final Assessmen Target Goals Target Goals Nutrition - 90-Day Assessment Weight Mgt (Other Care) Height: 5 ft 6 in Weight:: 175 lb 6.4 oz BMI: 28.3 Nutrition - Final Assessment Program Goals Patient has diagnosis of Hyperlipidemia (ICD E78)?: Yes Weight Mgt (Other Care) Height: 5 ft 6 in Weight:: 175 lb 6.4 oz BMI: 28.3
[2023-01-05 13:29] VITALS: BMI 28.3
[2023-01-05 14:25] VITALS: BP 118/77; BMI 28.3
== END | disposition home or self-care (01) ==
PROVIDERS: PCP Family Medicine; Referring Provider Internal Medicine Cardiovascular Disease; Visit Provider Internal Medicine Cardiovascular Disease
DX: Z95.1 Presence of aortocoronary bypass graft (principal)

== ENCOUNTER 2023-02-11 08:00 | Outpatient (RCR) | payer MEDICARE, OTHER, SELFPAY ==
[2023-01-05 14:25] VITALS: BMI 28.3
--- NOTE | 2023-02-04 08:15 | PCM.CR.ITP ---
Exercise - Initial Assessment Visit Session #:: 8 Comments:: 02/04/2023 patient called to notify he will e self-quarantining himself due to his testing positive for COVID. Nutrition - Initial Assessment Weight Mgt (Other Care) Height: 5 ft 6 in Weight:: 178 lb BMI: 28.7 Psychosocial - Initial Assess Target Goals Target Goals Referral to Behavioral Health PS - Interventions: Yes: Attend Stress Management Classes and No: Referral to Behavioral Health if PHQ-9 score >9:, No: Referral to [facility] and No: Referral to Physician if PHQ-9 if score is 5-9: Patient Health Questionnaire PHQ-9 Screening 30-Day Re-eval Assessment: 1. Little interest or pleasure in doing things: Not at all 2. Feeling down, depressed, or hopeless: Not at all 3. Trouble falling or staying asleep, or sleeping too much: Not at all 4. Feeling tired or having little energy: Not at all 5. Poor appetite or overeating: Not at all 6. Feeling bad about yourself -- or that you are a failure or have let yourself or your family down: Not at all 7. Trouble concentrating on things, such as reading the newspaper or watching television: Not at all 8. Moving or speaking so slowly that other people could have noticed. Or the opposite - being so fidgety or restless that you have been moving around a lot more than usual: Not at all How difficult have these problems made it for you to do your work, take care of things at home, or get along with other people?: Not difficult at all Total Score: 0 Self-Efficacy 6-Item Scale 30-Day Re-eval Assessment: We would like to know how confident you are in doing certain activities. Please select your confidence level for: Fatigue Select Number: 3 Physical Discomfort or Pain Select Number: 5 Emotional Distress Select Number: 10 Other Symptoms or Health Problems Select Number: 5 Different Tasks and Activities Select Number: 10 Medication Select Number: 10 Total Score:: 7 Nutrition Survey Nutrition Survey Instructions Scoring Instructions Exercise - 30-day Assessment Visit Date of Eval: 02/04/23 Session #:: 8 Comments:: 02/04/2023 patient called to notify he will e self-quarantining himself due to his testing positive for COVID. Physician Prescribed Exercise Modalities: Treadmill, NuStep and SciFit Frequency: 3x/week for 12 weeks [36 sessions] Intensity: 60-80% of age predicted maximum heart rate reserve Current METSs:: 3.0 Target Heart Rate:: 89-104 Current RPE:: 11.5 Maximum Excercise HR:: 75 Resting Blood Pressure: 110/56 Maximum Exercise Blood Pressure: 138/60 EKG Type: NSR with rare PACs Current Physical Activity or Exercising minutes: 42:24 Outcomes & Goals Goals:: Verbalizes understanding of THR, RPE & goal METS by session 6, Documents in home exercise log/reports 30 min aerobic 5 day/wk by DC and Demonstrates accurate pulse taking by DC Intervention & Plan Exercise Program Goals: Instruct on personal THR & RPE, Instruct on MET level & personal MET goal, Show patient to take own pulse /validate performance until accurate and Instruct on home exercise 30-day Reassessments 30 day Reassessments:: Met Physical Activity Home Exercise Physical Activity - Home Exercise: Safe Exercise, Warm-up, Self-monitoring, Cool-Down, Home Exercise > 30 min Daily and Sitting Time <3 hours/daily Outcomes & Goals Outcomes/Goals: Demonstrates correct Warm-up/exercise Cool-Down (S3) if = 2.5 METs, Verbalizes symptoms of exercise intolerance by Session 3 (S3) and Demonstrate safe equipment use (S3) & follows exercise prescrition (6) Intervention & Plan Plan/Intervention: Instruct warm-up & cool-down if exercising at > 2 METs, Instruct on symptoms of exercise intolerance & actions to take, Instruct & monitor on saf and Assess intial functional capacity & safety risk 30-day Reassessments 30 day Reassessments:: Met Nutrition - 30-Day Assessment Visit Date of Eval: 02/04/23 Session #:: 8 Cholesterol/Lipids (Other Core Measures) Triglycerides (mg/dL): 105 Total Cholesterol (mg/dL): 102 LDL Cholesterol (mg/dL): 31 HDL Cholesterol (mg/dL): 50 Determine presence & major risk factors that modify LDL goal: Hypertension or hypertensive medication, Family history of premature CHD in Male < 55 years: female <65 yearsFa and Age men > 45 years; women >/= 55 years Outcomes/Goals: Pt IDs own risk factors & lifestyle modifications by Session 10, Verbalizes symptoms of angina & response by session 3. and Pt independently manages Intervention/Plan: Instruct on personal lipid levels & lipid goals/NCEP guidelines and Instruct on cholesterol Referral to dietitian:: Yes 30-day Reassessments:: Progressing Diabetes (Other Core Measures) Diabetes Type: Not Applicable Insulin dependent injection/pump?: No Non-Insulin Dependent?: No Do you monitor your blood sugar at home?: No Referral to Diabetic Clinic:: No Weight Mgt (Other Care) Not Applicable: Yes Height: 5 ft 6 in Weight:: 178 lb BMI: 28.7 Diagnosis Overweight/Obesity BMI> 30% ICD-10 E66: No Diagnosis High BMI/Morbid Obesity BMI> 35% ICD-10 Z68: No Outcomes/Goals: Pt sets, maintains & shows weight loss goal & trend during rehab Intervention/Plan: Instruct on ideal BMI & set weight loss goal w/patient, Assist pt to ID & incorporate diet changes for weight loss by S9 and Encourage goal of using 250-300dcal per session for weight loss 30 day Reassessments:: Met Healthy Eating Habits Will attend diet classes:: Yes Outcomes/Goals:: Consume diet rich in vegs,fruits,whole grain/high fiber,fish,lean meat and Limit sat/trans fats,cholesterol & added salts & sugars Intervention/Plan:: Assess current eating habits 30-day Reassessments:: Met Education Gave educational materials for:: Healthy eating Nutrition - 60-Day Assessment Weight Mgt (Other Care) Height: 5 ft 6 in Weight:: 178 lb BMI: 28.7 Core - 30-Day Assessment Visit Date of Eval: 02/04/23 Session #:: 8 Medication Compliance Preventative Medication(s):: Aspirin, Clopidogrel/P2Y12 inhibit, Statin/lipid and Beta sebastián H/O mental health issues: depression, anxiety, or addiction?: No Doesn?t believe in the benefits of treatment?: No Believes medications are unnecessary or harmful?: No Has a concern about medication side effects?: No Expresses concern over the cost of medications?: No Outcomes/Goals: Verbalizes medications,desired effect & common side effects @ DC, Pt self-reports following medication regimen and Keeps card in wallet w/medications listed by DC Interventions/plans: Instruct on medication effects & side effects, Review medication list w/patient every two weeks and Instruct importance of taking meds as ordered & assist problem solving 30-day Reassessments:: Met Tobacco Use Tobacco Use: Non-smoker How long ago did you quit using tobacco products?: Greater than or equal to 6 months ago Do you use smokeless tobacco?: No Interventions/plan: Instruct on effects of smoking & provide smoking cessation resource 30-day Reassessments:: Met Hypertension Hypertension Diagnosis:: Hypertension ICD-10 I10 Resting Blood Pressure:: 110/56 [place] [employer] Hypertension Guidelines Peak Exercise Blood Pressure:: 138/60 Outcomes/Goals: Able to verbalize/achieve optimal blood pressure <130/80 and Incorporates diet changes & exercise for blood pressure control by DC Interventions/plan: Instruct on optimal blood pressure, hypertension & medications and Instruct on effects of sodium, alcohol, stress, exercise &hypertension 30 day Reassessments:: Met Tobacco Cessation Referral Smoking Cessation Referral:: No Individual Education/Counseling:: No Education Schedule Given:: Yes Psychosocial - 30-Day Assess VIsit Date of Eval: 02/04/23 Session #:: 8 Not Applicable: Yes History of previous Mental disease:: No Target Goals Target Goals Psychosocial Test Tool Used:: PHQ-9 Questionnaire phq-9 Severity Referral to Behavioral Health PS - Interventions: Yes: Attend Stress Management Classes and No: Referral to Behavioral Health if PHQ-9 score >9:, No: Referral to [facility] and No: Referral to Physician if PHQ-9 if score is 5-9: Outcomes/Goals: See list Psychosocial Outcomes/Goals:: ID's personal stressors & 2 strategies to manage stress by discharge Intervention/Plan: See List Interventions/Plan:: Assess stressors,coping strategies & signs of derpression on admission, Instruct/assist pt to develop coping & personal stress Mgt strategies, Instruct patient to recognize signs & symptoms of depression and Instruct patient to recog 30-day Reassessments: 30 day Reassessments:: Progressing Psychosocial - 60-Day Assess Target Goals Target Goals Referral to Behavioral Health PS - Interventions: Yes: Attend Stress Management Classes and No: Referral to Behavioral Health if PHQ-9 score >9:, No: Referral to [facility] and No: Referral to Physician if PHQ-9 if score is 5-9: Outcomes/Goals: See list Psychosocial Outcomes/Goals:: ID's personal stressors & 2 strategies to manage stress by discharge Psychosocial - 90-Day Assess Target Goals Target Goals Referral to Behavioral Health PS - Interventions: Yes: Attend Stress Management Classes and No: Referral to Behavioral Health if PHQ-9 score >9:, No: Referral to [facility] and No: Referral to Physician if PHQ-9 if score is 5-9: Psychosocial - Final Assessmen Target Goals Target Goals Referral to Behavioral Health PS - Interventions: Yes: Attend Stress Management Classes and No: Referral to Behavioral Health if PHQ-9 score >9:, No: Referral to [facility] and No: Referral to Physician if PHQ-9 if score is 5-9: Nutrition - 90-Day Assessment Weight Mgt (Other Care) Height: 5 ft 6 in Weight:: 178 lb BMI: 28.7 Nutrition - Final Assessment Weight Mgt (Other Care) Height: 5 ft 6 in Weight:: 178 lb BMI: 28.7
[2023-02-04 08:25] VITALS: BP 110/56; BMI 28.7
== END 2023-02-12 23:59 ==
LOC: CR 08:00
PROVIDERS: PCP Family Medicine; Referring Provider Internal Medicine Cardiovascular Disease; Visit Provider Internal Medicine Cardiovascular Disease
DX: Z95.5 Presence of coronary angioplasty implant and graft (principal); I21.11 ST elevation (STEMI) myocardial infarction involving right coronary artery; I44.0 Atrioventricular block, first degree
CPT/HCPCS: 93798

== ENCOUNTER → 2023-03-07 | Outpatient (CLI) | payer MEDICARE, OTHER, SELFPAY ==
[2023-03-07 09:14] VITALS: BMI 28.5
[2023-03-07 12:31] LABS: AST(SGOT) 24 U/L (15-37); Alanine Aminotransfer ALT/SGPT 37 U/L (16-61); Cholesterol 110 mg/dL (200); High Density Lipoprotein 47 mg/dL; Triglycerides 67 mg/dL; Very Low Density Lipoprotein 13 mg/dL (5-40)
== END | disposition home or self-care (01) ==
LOC: MFPLAB 10:37
PROVIDERS: PCP Family Medicine; Visit Provider Family Medicine
DX: E78.00 Pure hypercholesterolemia, unspecified (principal)
CPT/HCPCS: 36415; 80061; 84450; 84460

== ENCOUNTER 2023-03-14 08:00 | Outpatient (RCR) | payer MEDICARE, OTHER, SELFPAY ==
[2023-02-04 08:25] VITALS: BMI 28.7
[2023-02-13 00:09] VITALS: BP 110/56
--- NOTE | 2023-03-07 09:02 | CR.ITP_ITS ---
Nutrition - Initial Assessment Weight Mgt (Other Care) Height: 5 ft 6 in Weight:: 177 lb BMI: 28.5 Psychosocial - Initial Assess Target Goals Target Goals Patient Health Questionnaire PHQ-9 Screening 60-Day Re-eval Assessment: 1. Little interest or pleasure in doing things: Not at all 2. Feeling down, depressed, or hopeless: Not at all 3. Trouble falling or staying asleep, or sleeping too much: Not at all 4. Feeling tired or having little energy: Not at all 5. Poor appetite or overeating: Not at all 6. Feeling bad about yourself -- or that you are a failure or have let yourself or your family down: Not at all 7. Trouble concentrating on things, such as reading the newspaper or watching television: Not at all 8. Moving or speaking so slowly that other people could have noticed. Or the opposite - being so fidgety or restless that you have been moving around a lot more than usual: Not at all 9. Thoughts that you would be better off , or of hurting yourself in some way: Not at all How difficult have these problems made it for you to do your work, take care of things at home, or get along with other people?: Not difficult at all Total Score: 0 Self-Efficacy 6-Item Scale 60-Day Re-eval Assessment: We would like to know how confident you are in doing certain activities. Please select your confidence level for: Fatigue Select Number: 3 Physical Discomfort or Pain Select Number: 5 Emotional Distress Select Number: 10 Other Symptoms or Health Problems Select Number: 1 Different Tasks and Activities Select Number: 10 Medication Select Number: 10 Total Score:: 6 Nutrition Survey Nutrition Survey Instructions Scoring Instructions Exercise - 60-day Assessment Visit Date of Eval: 03/07/23 Session #:: 20 Physician Prescribed Exercise Modalities: Treadmill, Rower, Airdyne, NuStep and SciFit Frequency: 3x/week for 12 weeks [36 sessions] Intensity: 60-80% of age predicted maximum heart rate reserve Duration: 30 - 45 minutes Current METSs:: 5 Target Heart Rate:: 89-104 Current RPE:: 12-14 Maximum Excercise HR:: 79 Resting Blood Pressure: 126/58 Maximum Exercise Blood Pressure: 160/72 EKG Type: NSR with rare pac/pvc Outcomes & Goals Goals:: Verbalizes understanding of THR, RPE & goal METS by session 6, Documents in home exercise log/reports 30 min aerobic 5 day/wk by DC, Demonstrates accurate pulse taking by DC and Other additional outcome/goals: see below Intervention & Plan Exercise Program Goals: Instruct on personal THR & RPE, Instruct on MET level & personal MET goal, Show patient to take own pulse /validate performance until accurate, Instruct on home exercise and Other additional plan/int 30-day Reassessments 30 day Reassessments:: Progressing Reassessment Notes & Comments:: THR explained Physical Activity Home Exercise Physical Activity - Home Exercise: Safe Exercise, Warm-up, Self-monitoring, Cool-Down, Home Exercise > 30 min Daily and Sitting Time <3 hours/daily Outcomes & Goals Outcomes/Goals: Demonstrates correct Warm-up/exercise Cool-Down (S3) if = 2.5 METs, Verbalizes symptoms of exercise intolerance by Session 3 (S3), Demonstrate safe equipment use (S3) & follows exercise prescrition (6) and Other: See below Intervention & Plan Plan/Intervention: Instruct warm-up & cool-down if exercising at > 2 METs, Instruct on symptoms of exercise intolerance & actions to take, Instruct & monitor on saf, Assess intial functional capacity & safety risk and Other See below 30-day Reassessments 30 day Reassessments:: Progressing Reassessment Notes & Comments:: cool down encouraged Nutrition - 30-Day Assessment Weight Mgt (Other Care) Height: 5 ft 6 in Weight:: 177 lb BMI: 28.5 Nutrition - 60-Day Assessment Program Goals Nutrition Program Goals Patient has diagnosis of Hyperlipidemia (ICD E78)?: Yes Visit Date of Eval: 03/07/23 Session #:: 20 Cholesterol/Lipids (Other Core Measures) Determine presence & major risk factors that modify LDL goal: Cigarette smoking, Hypertension or hypertensive medication, Low HDL cholesterol <40 mg/dL*, Family history of premature CHD in Male < 55 years: female <65 yearsFa and Age men > 45 years; women >/= 55 years Outcomes/Goals: Pt IDs own risk factors & lifestyle modifications by Session 10, Verbalizes symptoms of angina & response by session 3., Pt independently manages and Other Additional Outcomes/Goals: Intervention/Plan: Advocate for lipid panel cholesterol medication if applicable, Instruct on personal lipid levels & lipid goals/NCEP guidelines, Instruct on cholesterol and Other additional plan/int 30-day Reassessments:: Progressing Reassessment Notes & Comments:: pt to attend nutrition class Diabetes (Other Core Measures) Diabetes Type: Not Applicable Weight Mgt (Other Care) Height: 5 ft 6 in Weight:: 177 lb BMI: 28.5 Diagnosis Overweight/Obesity BMI> 30% ICD-10 E66: No Diagnosis High BMI/Morbid Obesity BMI> 35% ICD-10 Z68: No Outcomes/Goals: Pt sets, maintains & shows weight loss goal & trend during rehab and Other additional outcomes/goals Intervention/Plan: Instruct on ideal BMI & set weight loss goal w/patient, Assist pt to ID & incorporate diet changes for weight loss by S9, Refer to Structured Weight Loss program as appropriate, Encourage goal of using 250- 300dcal per session for weight loss and Other additional plan/interventions 30 day Reassessments:: Progressing Reassessment Notes & Comments:: pt to attend nutrition class Healthy Eating Habits Will attend diet classes:: Yes Outcomes/Goals:: Consume diet rich in vegs,fruits,whole grain/high fiber,fish,lean meat, Limit sat/trans fats,cholesterol & added salts & sugars and Other additional outcome/goals: Intervention/Plan:: Assess current eating habits and Other Additional plan/interventions 30-day Reassessments:: Progressing Reassessment Notes & Comments:: pt to attend nutrition class Education Gave educational materials for:: Signs & symptoms of hypoglycemia, Signs & symptoms of hyperglycemia, Relate diabetes to coronary artery disease and Healthy eating Core - 60-Day Assessment Visit Date of Eval: 03/07/23 Session #:: 20 Medication Compliance Preventative Medication(s):: KENJI inhibitor, Clopidogrel/P2Y12 inhibit, Statin/lipid and Beta sebastián H/O mental health issues: depression, anxiety, or addiction?: No Doesn?t believe in the benefits of treatment?: No Believes medications are unnecessary or harmful?: No Has a concern about medication side effects?: No Expresses concern over the cost of medications?: No Outcomes/Goals: Verbalizes medications,desired effect & common side effects @ DC, Pt self-reports following medication regimen, Keeps card in wallet w/m edications listed by DC and Other additional outcome/goals: Interventions/plans: Instruct on medication effects & side effects, Review medication list w/patient every two weeks, Instruct importance of taking meds as ordered & assist problem solving and Other additional 30-day Reassessments:: Progressing Reassessment Notes & Comments:: pt encouraged to take his meds Tobacco Use Tobacco Use: Non-smoker Hypertension Hypertension Diagnosis:: Hypertension ICD-10 I10 Resting Blood Pressure:: 126/58 [place] [employer] Hypertension Guidelines Peak Exercise Blood Pressure:: 160/72 Outcomes/Goals: Able to verbalize/achieve optimal blood pressure <130/80, Incorporates diet changes & exercise for blood pressure control by DC and Other additional outcomes/goals Interventions/plan: Instruct on optimal blood pressure, hypertension & medications, Instruct on effects of sodium, alcohol, stress, exercise &hypertension and Other additional plan/interventions 30 day Reassessments:: Progressing Reassessment Notes & Comments:: pt encouraged to take his meds Tobacco Cessation Referral Smoking Cessation Referral:: No Individual Education/Counseling:: No Education Schedule Given:: Yes Psychosocial - 30-Day Assess Target Goals Target Goals Psychosocial - 60-Day Assess VIsit Date of Eval: 03/07/23 Session #:: 20 History of previous Mental disease:: No Target Goals Target Goals 30-day Reassessments: 30 day Reassessments:: Met Psychosocial - 90-Day Assess Target Goals Target Goals Psychosocial - Final Assessmen Target Goals Target Goals Nutrition - 90-Day Assessment Weight Mgt (Other Care) Height: 5 ft 6 in Weight:: 177 lb BMI: 28.5 Nutrition - Final Assessment Weight Mgt (Other Care) Height: 5 ft 6 in Weight:: 177 lb BMI: 28.5
[2023-03-07 09:14] VITALS: BP 126/58; BMI 28.5
== END 2023-03-15 23:59 ==
LOC: CR 08:00
PROVIDERS: PCP Family Medicine; Referring Provider Internal Medicine Cardiovascular Disease; Visit Provider Internal Medicine Cardiovascular Disease
DX: Z95.5 Presence of coronary angioplasty implant and graft (principal); I21.11 ST elevation (STEMI) myocardial infarction involving right coronary artery; I44.0 Atrioventricular block, first degree
CPT/HCPCS: 93798

== ENCOUNTER 2023-04-13 08:00 | Outpatient (RCR) | payer MEDICARE, OTHER, SELFPAY ==
[2023-03-07 09:14] VITALS: BMI 28.5
[2023-03-16 00:33] VITALS: BP 110/56; BP 126/58
== END 2023-04-14 23:59 ==
LOC: CR 08:00
PROVIDERS: PCP Family Medicine; Referring Provider Internal Medicine Cardiovascular Disease; Visit Provider Internal Medicine Cardiovascular Disease
DX: Z95.5 Presence of coronary angioplasty implant and graft (principal); I21.11 ST elevation (STEMI) myocardial infarction involving right coronary artery; I44.0 Atrioventricular block, first degree
CPT/HCPCS: 93798

== ENCOUNTER 2023-04-20 08:00 | Outpatient (RCR) | payer MEDICARE, OTHER, SELFPAY ==
[2023-03-07 09:14] VITALS: BMI 28.5
[2023-04-15 00:17] VITALS: BP 110/56; BP 126/58
== END 2023-05-15 23:59 ==
LOC: CR 08:00
PROVIDERS: PCP Family Medicine; Referring Provider Internal Medicine Cardiovascular Disease; Visit Provider Internal Medicine Cardiovascular Disease
DX: Z95.5 Presence of coronary angioplasty implant and graft (principal); I21.11 ST elevation (STEMI) myocardial infarction involving right coronary artery; I44.0 Atrioventricular block, first degree
CPT/HCPCS: 93798

== ENCOUNTER 2023-06-20 07:26 | Day surgery (SDC) | payer MEDICARE, OTHER, SELFPAY ==
[2023-03-07 09:14] VITALS: BMI 28.5
--- NOTE | 2023-06-10 09:40 | RAD_ITS ---
STUDY: X-RAY CHEST REASON FOR EXAM: Male, 72 years old. CRAWLEY -- for heart cath TECHNIQUE: Frontal and lateral views of the chest. COMPARISON: None. FINDINGS: The lungs are clear and expanded. There is no demonstrated pleural abnormality. Normal size heart. Normal mediastinum and patricio. Normal visualized pulmonary arteries. Normal visualized aortic arch and descending thoracic aorta. Normal visualized thoracic spine. Normal visualized ribs, clavicles, and shoulders. There is no demonstrated abnormality of the visualized soft tissue structures of the upper abdomen. RAD/Chest PA and Lateral IMPRESSION: Normal x-ray examination of the chest. Electronically Signed: Gómez Greene MD at 19:25 EST ,
[2023-06-10 10:14] LABS: Absolute Neutrophil Count 3.3 X10^3/uL (2.0-7.7); Basophil# 0.03 X10^3/uL; Basophil% 0.5 % (0-1); Eosinophil# 0.22 X10^3/uL; Eosinophils% 3.8 % (0-5); Hematocrit 46.2 % (40-54); Hemoglobin 15.1 g/dL (13.0-16.5); Lymphocyte % 31.4 % (19-41); Mean Corp Hgb Conc 32.7 g/dL (32-36); Mean Corpuscular Hgb 32.5 pg (27.0-32.0); Mean Corpuscular Volume 99.6 fL (80-94); Mean Platelet Vol. 9.2 fl (6.2-12.0); Monocyte# 0.41 X10^3/uL; Monocyte% 7.1 % (0-10); NRBC Flagged by Analyzer 0 % (0-5); Neutrophil # 3.27 X10^3/uL (2.7-7.7); Platelet Count 207 K/mm3 (150-450); RBC Distribution Width SD 47.5 fl (35.1-43.9); Red Blood Count 4.64 M/mm3 (4.6-6.2); White Blood Count 5.7 K/mm3 (4.4-11.0)
[2023-06-10 10:20] LABS: Prothrombin Time (Protime)PT. 13.2 SECONDS (11.7-14.9)
[2023-06-10 10:29] LABS: Partial Thromboplast Time 25.3 Seconds (24.1-36.2)
[2023-06-10 10:37] LABS: AST(SGOT) 26 U/L (15-37); Alanine Aminotransfer ALT/SGPT 46 U/L (16-61); Anion Gap 2 (5-15); BUN 14 mg/dL (7-18); BUN/Creat Ratio 18.7 RATIO (10-20); Calcium,Total 9.3 mg/dL (8.5-10.1); Chloride 108 mmol/L (98-107); Cholesterol 141 mg/dL (200); Creatinine, Serum 0.75 mg/dL (0.70-1.30); EST Glomerular Filtration Rate 109 mL/min (>60); Est Glom Filt Rate - Afr Amer 132 mL/min (>60); Glucose 103 mg/dL (74-106); High Density Lipoprotein 57 mg/dL; Potassium 4.3 mmol/L (3.5-5.1); Sodium Level 136 mmol/L (136-145); Triglycerides 68 mg/dL; Very Low Density Lipoprotein 14 mg/dL (5-40)
[2023-06-17 07:41] VITALS: BMI 28.2
--- OUTSIDE RECORDS SUMMARY | 2023-06-20 07:38 | XMS RPT_ITS | CCD ---
Author Name Unknown Address [address] [place] [address] Organization [facility] Care Team Providers Care Tanning Wheel Filler Name Role Phone NEDRA MARTINEZ Primary Care Unavailable OLDER, MERYL Referring Unavailable NEDRA MARTINEZ Primary Care Unavailable Nedra Martinez Primary Care Provider Allergies Allergy Classification Reported Allergen(s) Allergy Type Date of Onset Reaction(s) Facility (3 sources) Sulfonamides (Antibiotic); Translations: [SULFA (SULFONAMIDE ANTIBIOTICS)] Propensity to adverse reactions to drug (disorder) 6 GI Upset [facility] Repository Medications Current Medications Medication Drug Class(es) Dates Sig (Normalized) Sig (Original) doxycycline monohydrate 100 mg oral tablet (2 sources) Tetracycline-clas s Drug Start: 10-16-2022 End: 10-21-2022 take 1 tablet by mouth twice daily doxycycline monohydrate 100 mg tablet Take 1 tablet by mouth twice daily for 5 days. 10 tablet 0 10/16/2022 10/21/2022 Active Completed/Discontinued Medications Medication Drug Class(es) Dates Sig (Normalized) Sig (Original) [id number] 200 actuat albuterol 0.09 mg/actuat metered dose inhaler (2 sources) beta2-Adrenergic Agonist Start: 12-13-2008 take 1 puff(s) by inhalation once daily as needed for wheezing ALBUTEROL SULFATE HFA 90 MCG/ACTUATION AEROSOL INHALER Inhale one(1) - two(2) puffs four(4) times a day as needed for wheezing and shortness of breath. 1 0 12/13/2008 Active Problems Active Problems Problem Classification Problem Date Documented Da te Episodic/Chronic Asthma (1 source) Exacerbation of asthma; Translations: [Unspecified asthma with (acute) exacerbation] Chronic Fever of unknown origin (2 sources) Fever, unspecified; Translations: [Fever] Onset: 10-16-2022 Episodic Other ear and sense organ disorders (2 sources) Hearing loss; Translations: [Unspecified hearing loss, unspecified ear] Onset: 12-16-2003 04-23-2009 Chronic Other inflammatory condition of skin (2 sources) Psoriasis; Translations: [Other psoriasis] Onset: 07-07-2006 07-07-2006 Chronic Other lower respiratory disease (1 source) Shortness of breath; Translations: [SOB (shortness of breath)] Onset: 10-16-2022 Episodic Other lower respiratory disease (1 source) Cough; Translations: [Acute cough] Episodic Other lower respiratory disease (1 source) Dyspnea; Translations: [Shortness of breath] Episodic Pneumonia (except that caused by tuberculosis or sexually transmitted disease) (1 source) Infective pneumonia; Translations: [Pneumonia, unspecified organism] Episodic Unclassified (1 source) Acute cough; Translations: [Acute cough] Onset: 10-16-2022 Past or Other Problems Problem Classification Problem Date Documented Da te Episodic/Chronic Abdominal hernia (2 sources) Inguinal hernia; Translations: [Unilateral inguinal hernia, without obstruction or gangrene, not specified as recurrent] Onset: 01-01-2011 01-01-2011 Episodic Gastritis and duodenitis (2 sources) Acute hemorrhagic gastritis; Translations: [Acute gastritis with bleeding] Onset: 10-15-2005 10-15-2005 Episodic Other connective tissue disease (2 sources) Neuralgia of nerve of left lower limb; Translations: [Neuralgia and neuritis, unspecified] Onset: 05-31-2015 05-31-2015 Episodic Results Test Name Value Interpretation Reference Range Facil ity Vital Signs Date Time Vital Sign Value Performing Clinician Faci lity 10-16-2022 09:06-0400 Body temperature 98.6 [degF] Meryl Older MEDICAL ORDERLY.CRYSTAL INSPECTOR Work Phone: [facility] 10-16-2022 09:06-0400 Body weight 81.19 kg Meryl Older MEDICAL ORDERLY.CRYSTAL INSPECTOR Work Phone: [facility] 10-16-2022 09:06-0400 Diastolic blood pressure 70 mm[Hg] Meyrl Older MEDICAL ORDERLY.CRYSTAL INSPECTOR Work Phone: [facility] 10-16-2022 09:06-0400 Heart rate 82 /min Meryl Older MEDICAL ORDERLY.CRYSTAL INSPECTOR Work Phone: [facility] 10-16-2022 09:06-0400 Respiratory rate 16 /min Meryl Older MEDICAL ORDERLY.CRYSTAL INSPECTOR Work Phone: [facility] 10-16-2022 09:06-0400 SaO2% (BldA) [Mass fraction] 96 % Meryl Older MEDICAL ORDERLY.CRYSTAL INSPECTOR Work Phone: [facility] 10-16-2022 09:06-0400 Systolic blood pressure 128 mm[Hg] Meryl Older MEDICAL ORDERLY.CRYSTAL INSPECTOR Work Phone: [facility] Encounters Encounter Date Encounter Type Care Provider Facility Start: 10-16-2022 Telephone encounter Meryl Older MEDICAL ORDERLY.CRYSTAL INSPECTOR Work Phone: [facility] Procedures Date Procedure Procedure Detail Performing Clinician Start: 01-26-2011 Colonoscopy Meryl Older MEDICAL ORDERLY.CRYSTAL INSPECTOR Work Phone: Plan of Treatment Date Care Activity Detail Author Start: 01-14-2023 Influenza vaccination INFLUENZA (Sea son Ended) [facility] Start: 05-16-2022 ADVANCE DIRECTIVE DISCUSSION ADVANCE DIRECTIVE DISCUSSION [facility] Start: 05-16-2022 DEPRESSION ASSESSMENT DEPRESSION ASS ESSMENT [facility] Start: 01-27-2016 Colonoscopy COLONOSCOPY [facility] Start: 01-27-2016 COLORECTAL CANCER SCREENING COLORECTAL CANCER SCREENING [facility] Start: 12-25-2013 DIABETES SCREEN DIABETES SCREEN [facility] Start: 10-25-2012 LIPID SCREEN LIPID SCREEN [facility] Start: 07-03-2009 PNEUMOCOCCAL: 65+ (2 - PCV) PNEUMOCOCCAL: 65+ (2 - PCV) [facility] Start: 07-04-2008 Urine microalbumin profile DTAP,TDAP ,TD (1 - Tdap) [facility] Start: 2000 SHINGRIX VACCINE (1 of 2) SHINGRIX V ACCINE (1 of 2) [facility] Start: 08-27-1995 COLOGUARD (FIT-DNA) COLOGUARD (FIT-D NA) [facility] Start: 08-27-[address] COLONOGRAPHY [facility] Start: 08-27-1995 FECAL OCCULT BLOOD FECAL OCCULT BLOO D [facility] Start: 08-27-1995 [facility] Start: 1968 HEPATITIS C SCREENING HEPATITIS C SC SARAH [facility] Start: 1950 ABDOMINAL AORTIC ANE URYSM SCREENING ABDOMINAL AORTIC ANEURYSM SCREENING [facility] Immunizations Immunization Date Immunization Notes Care Provider Fa cility 03-07-2009 influenza virus vacc ine, unspecified formulation Meryl Older MEDICAL ORDERLY.CRYSTAL INSPECTOR Work Phone: [facility] Work Phone: 07-03-2008 pneumococcal polysaccharide vaccine, 23 valent Meryl Older MEDICAL ORDERLY.[facility] Work Phone: [facility] Work Phone: 07-03-2008 tetanus and diphther ia toxoids, adsorbed, preservative free, for adult use (2 Lf of tetanus toxoid and 2 Lf of diphtheria toxoid) Meryl Older MEDICAL ORDERLY.[facility] Work Phone: [facility] Work Phone: 05-22-2001 pneumococcal polysaccharide vaccine, 23 valent Meryl Older MEDICAL ORDERLY.CRYSTAL INSPECTOR Work Phone: [facility] Work Phone: Payers Date Payer Category Payer Medicare [id number] 2022 Private Health Insurance [employer] MEDICARE SUPPLEMENT [id number] 2022-Present [phone] [address] [place] [address] Indemnity [id number] 2015 Medicare [id number] 2015 Medicare MEDICARE MEDICAR E A AND B [id number] 2015-Present [phone] [address] [address] [place] [address] Medicare [id number] Social History Date Type Detail Facility Start: 06-25-2017 [facility] End: 06-12-2008 History of tobacco use Current smoker [facility] End: 06-12-2008 History of tobacco use Cigarette Smoker [facility] Start: 06-25-2017 Cigarettes smoked cu rrent (pack per day) - Reported 0.5 [facility] Start: 06-25-2017 Tobacco use and exposure Smoke less tobacco non-user [facility] Start: 12-30-2021 Alcohol intake Current drinke r of alcohol (finding) [facility] Start: 04-23-2009 Tobacco Comment [facility] this year. [facility] Start: 1950 Sex Assigned At Not on file [facility] Medical Equipment Procedure Code Equipment Code Equipment Origin al Text Equipment Identifier Dates Mesh Srg Pariete x Plug 6cm - [id number] Start: 12-29-2010 Note 10-16-2022 Telephone Encounter - Meryl Pfeiffer APRN.CNP - 10/16/2022 2:58 PM EDTTelephone Encounter - Coleen Partida - 10/16/2022 11:19 AM EDT Note Date & Type Note Facility 10-16-2022 Miscellaneous Notes Formattin g of this note might be different from the original. Addressed Meryl Pfeiffer APRN.CNP Pharmacy called in,stated that Doxycycline and Prednison was prescribed on 10/16/2022 by Meryl Pfeiffer but patient also has Amoxicillin prescribed on 10/15/2022 by a different Doctor, pharmacist would like to know if this is correct or if their is one that should not be filled. Pharmacy number is [phone] Thank you, Coleen Partida 10/16/2022 documented in this encounter [facility] Progress note 10-16-2022 Note Date & Type Note Facility 10-16-2022 Note HNO ID: [id number] Author: Kaelyn Gutierrez RT(R) Service: ? Author Type: Metals Sales Representative Type: Progress Notes Filed: 10/16/2022 9:43 AM Note Text: Radiology Service Progress Note PATIENT NAME: Tai Mccormick DATE OF SERVICE: October 16, 2022 TIME: 9:36 AM PATIENT IDENTITY VERIFICATION COMPLETED USING TWO (2) IDENTIFIERS: Name and Date of confirmed by patient verbally. FALL SCREENING: Has the patient had 2 falls in the last year or 1 fall with injury or currently using an Ambulatory Assistive Device (Walker, Cane, Wheelchair, Crutches, etc.)? No PATIENT GENDER DATA: Male PATIENT RELEVANT IMPLANT DATA REVIEWED: Yes RADIOLOGY DEPARTMENT: General X-ray: Exam(s) Completed: Chest X-Ray PERIPHERAL IV DATA: Not applicable SIGNED BY: RT Gwen(R) October 16, 2022 9:36 AM [facility] Progress note 10-16-2022 Note Date & Type Note Facility 10-16-2022 Note HNO ID: [id number] Author: Meryl Pfeiffer APRN.CRYSTAL INSPECTOR Service: ? Author Type: Nurse Practitioner Type: Progress Notes Filed: 10/16/2022 10:22 AM Note Text: CC: Patient presents with: Cough: Has been running a temp, sore throat, runny nose x 1 day HPI: Tai Mccormick is a 72 year old male who presents to the office with complaint of respiratory symptoms for 4 days. Symptoms are worsening Associated symptoms includes rhinorrhea, body aches, fever, cough, dyspnea, fatigue, and decreased appetite. Denies sore throat, nasal congestion, facial pain/pressure, headache, ear pain, nausea, vomiting , diarrhea, and loss of taste or smell. Treatments tried include nothing so far. Sick contacts: no. History of asthma, frequent episodes of bronchitis, chronic bronchitis, bronchiectasis or COPD: Yes Smoker: No Seasonal/environmental allergies: Yes The ROS is otherwise negative. The patient's pmh, medications, allergies, and past visits are reviewed. PHYSICAL EXAM: BP 128/70 Pulse 82 Temp 37 ?C (98.6 ?F) Resp 16 Wt 81.2 kg (179 lb) SpO2 96% General appearance: tired/ill appearing, alert, cooperative, pleasant, in no acute distress Head: Normocephalic Eyes: conjunctiva pink and moist, no icterus, sclera white, non-injected Ears: Right ear: External ear/canal- Normal, TM - clear with good landmarks. Left ear: External ear/canal- Normal, TM - clear with good landmarks Nose: clear. Oropharynx:No erythema, exudates or tonsillar hypertrophy. Neck:supple and no adenopathy Heart: Negative. RRR without obvious murmur, gallop, or rubs. No ectopy. Lungs: diminished breath sounds, wheezing diffusely, no rhonchi or rales EXAMINATION: CHEST RADIOGRAPH (2 VIEW FRONTAL AND LATERAL) PATIENT/TECHNOLOGIST PROVIDED HISTORY: Cough, fever, sore throat, fatigue, for 4 to 5 days CLINICAL HISTORY: 72 years old Male with Acute cough. Fever, unspecified fever cause. SOB (shortness of breath). MQ: XC2_6 EXAM DATE/TIME: 10/16/2022 9:44 AM COMPARISON: Radiographs 07/03/2008, 06/25/2017 RESULT: Lines, tubes, and devices: None. Lungs and pleura: Mild anterior eventration of the RIGHT hemidiaphragm, unchanged. Focal opacity in the RIGHT lung base only visualized on the frontal view could be secondary to summation artifact, atelectasis or infectious/inflammatory process. Otherwise, no consolidation. No pleural effusion or pneumothorax. Cardiomediastinal silhouette: Normal cardiomediastinal silhouette. Bones and soft tissues: Right distal clavicular resection. Endplate degenerative changes in thoracic spine. ASSESSMENT/PLAN: 1. Pneumonia due to infectious organism, unspecified laterality, unspecified part of lung - ICD9: 486, ICD10: J18.9 (primary diagnosis) Chest x-ray showing possible pneumonia, treatment clinically indicated. Start Doxycycline, see orders Symptom management discussed Follow-up with PCP in 3 to 5 days if no improvement or sooner if worsening 2. Exacerbation of asthma, unspecified asthma severity, unspecified whether persistent - ICD9: 493.92, ICD10: J45.901 Start treatment with prednisone burst with taper Use albuterol inhaler or nebulizer as needed 3. Acute cough - ICD9: 786.2, ICD10: R05.1 As above - XR CHEST 2V FRONTAL/LAT 4. Fever, unspecified fever cause - ICD9: 780.60, ICD10: R50.9 As above - XR CHEST 2V FRONTAL/LAT 5. SOB (shortness of breath) - ICD9: 786.05, ICD10: R06.02 As above - XR CHEST 2V FRONTAL/LAT Prescription instructions reviewed with patient as applicable. Potential red flag symptoms discussed with the patient. Reviewed appropriate action plan to take if red flag symptoms occur. Patient agreeable to treatment plan. Meryl Pfeiffer APRN.CNP [facility] Instructions 10-16-2022 Patient Instructions Note Date & Type Note Facility 10-16-2022 Instructions Meryl Pfeiffer APRN.CNP - 10/16/2022 10:15 AM EDT Follow-up with your primary care provider in 3 to 5 days if no improvement or sooner if worsening Use your albuterol inhaler as needed for wheezing, chest tightness, shortness of breath documented in this encounter [facility] History of Present illness Narrative 10-16-2022 Meryl Pfeiffer APRN.CNP - 10/16/2022 9:08 AM EDT Note Date & Type Note Facility 10-16-2022 History of Presen t illness Narrative CC: Patient presents with: Cough: Has been running a temp, sore throat, runny nose x 1 day HPI: Tai Mccormick is a 72 year old male who presents to the office with complaint of respiratory symptoms for 4 days. Symptoms are worsening Associated symptoms includes rhinorrhea, body aches, fever, cough, dyspnea, fatigue, and decreased appetite. Denies sore throat, nasal congestion, facial pain/pressure, headache, ear pain, nausea, vomiting , diarrhea, and loss of taste or smell. Treatments tried include nothing so far. Sick contacts: no. History of asthma, frequent episodes of bronchitis, chronic bronchitis, bronchiectasis or COPD: Yes Smoker: No Seasonal/environmental allergies: Yes The ROS is otherwise negative. The patient's pmh, medications, allergies, and past visits are reviewed. PHYSICAL EXAM: BP 128/70 Pulse 82 Temp 37 C (98.6 F) Resp 16 Wt 81.2 kg (179 lb) SpO2 96% General appearance: tired/ill appearing, alert, cooperative, pleasant, in no acute distress Head: Normocephalic Eyes: conjunctiva pink and moist, no icterus, sclera white, non-injected Ears: Right ear: External ear/canal- Normal, TM - clear with good landmarks. Left ear: External ear/canal- Normal, TM - clear with good landmarks Nose: clear. Oropharynx:No erythema, exudates or tonsillar hypertrophy. Neck:supple and no adenopathy Heart: Negative. RRR without obvious murmur, gallop, or rubs. No ectopy. Lungs: diminished breath sounds, wheezing diffusely, no rhonchi or rales EXAMINATION: CHEST RADIOGRAPH (2 VIEW FRONTAL & LATERAL) PATIENT/TECHNOLOGIST PROVIDED HISTORY: Cough, fever, sore throat, fatigue, for 4 to 5 days CLINICAL HISTORY: 72 years old Male with Acute cough. Fever, unspecified fever cause. SOB (shortness of breath). MQ: XC2_6 EXAM DATE/TIME: 10/16/2022 9:44 AM COMPARISON: Radiographs 07/03/2008, 06/25/2017 RESULT: Lines, tubes, and devices: None. Lungs and pleura: Mild anterior eventration of the RIGHT hemidiaphragm, unchanged. Focal opacity in the RIGHT lung base only visualized on the frontal view could be secondary to summation artifact, atelectasis or infectious/inflammatory process. Otherwise, no consolidation. No pleural effusion or pneumothorax. Cardiomediastinal silhouette: Normal cardiomediastinal silhouette. Bones and soft tissues: Right distal clavicular resection. Endplate degenerative changes in thoracic spine. ASSESSMENT/PLAN: 1. Pneumonia due to infectious organism, unspecified laterality, unspecified part of lung - ICD9: 486, ICD10: J18.9 (primary diagnosis) Chest x-ray showing possible pneumonia, treatment clinically indicated. Start Doxycycline, see orders Symptom management discussed Follow-up with PCP in 3 to 5 days if no improvement or sooner if worsening 2. Exacerbation of asthma, unspecified asthma severity, unspecified whether persistent - ICD9: 493.92, ICD10: J45.901 Start treatment with prednisone burst with taper Use albuterol inhaler or nebulizer as needed 3. Acute cough - ICD9: 786.2, ICD10: R05.1 As above - XR CHEST 2V FRONTAL/LAT 4. Fever, unspecified fever cause - ICD9: 780.60, ICD10: R50.9 As above - XR CHEST 2V FRONTAL/LAT 5. SOB (shortness of breath) - ICD9: 786.05, ICD10: R06.02 As above - XR CHEST 2V FRONTAL/LAT Prescription instructions reviewed with patient as applicable. Potential red flag symptoms discussed with the patient. Reviewed appropriate action plan to take if red flag symptoms occur. Patient agreeable to treatment plan. Meryl Pfeiffer APRN.CNP documented in this encounter [facility] Evaluation note Note Date & Type Note Facility documented in this encounter [facility] Summary Purpose Family History No Family History Records Found Advance Directives No Advanced Directives Records Found Additional Source Comments (unrecognized sect ion and content) No Status Records Found INFORMATION SOURCE (unrecogn ized section and content) Source Comments (unrecognize d section and content) In the event this informatio n is protected by the Federal Confidentiality of Alcohol and Drug Abuse Patient Records regulations: The Federal rules restrict any use of the information to criminally investigate or prosecute any alcohol or drug abuse patient.[facility] the event this information is protected by the Federal Confidentiality of Alcohol and Drug Abuse Patient Records regulations: The Federal rules restrict any use of the information to criminally investigate or prosecute any alcohol or drug abuse patient.[facility] Reason for Visit (unrecogniz ed section and content) Reason Comments Medication Problem Care Teams (unrecognized sec tion and content) Tanning Wheel Filler Relationship Specialty Start Date End Date Nedra Martinez PCP - General Family Medicine 05/21/15 FOR RECORDS PERTAINING TO PATIENTS WHO ARE OR HAVE BEEN ENROLLED IN A CHEMICAL DEPENDENCY/SUBSTANCEABUSE PROGRAM, SOME INFORMATION MAY BE OMITTED. This clinical summary was aggregated from multiple sources. Caution should be exercised in using it in the provision of clinical care. This summary normalizes information from multiple sources, and as a consequence, information in this document may materially change the coding, format and clinical context of patient data. In addition, data may be omitted in some cases. CLINICAL DECISIONS SHOULD BE BASED ON THE PRIMARY CLINICAL RECORDS. [facility] provides no warranty or guarantee of the accuracy or completeness of information in this document.
--- NOTE | 2023-06-20 09:46 | DCINST_ITS ---
Discharge Instructions Diet Discharge Diet: Low fat / Low cholesterol Activity Discharge Activity: Return to Normal Activity Follow Up Care Test Results: Test results from this visit will be discussed in further detail at your follow- up appointment, if applicable. Discharge Plan Admission Attending Provider: Juan Oglesby Primary Care Provider: Lurdes Martinez Discharge Orders/Prescriptions Prescriptions: No Action omega 1-liu-izp-fish oil [Fish Oil] 300-1,000 mg capsule 1 cap PO DAILY atorvastatin 40 mg tablet 40 mg PO QHS Qty: 90 3RF carvedilol 3.125 mg tablet 3.125 mg PO BID Qty: 180 3RF clopidogrel [Plavix] 75 mg tablet 75 mg PO DAILY Qty: 90 3RF aspirin 81 mg capsule 81 mg PO DAILY Qty: 90 3RF sildenafil 100 mg tablet 100 mg PO DAILY PRN (Reason: sexual activity) Patient Comments: TAKE 1 TABLET BY MOUTH DAILY NEEDED amlodipine 5 mg tablet 5 mg PO DAILY Qty: 90 3RF lisinopril 5 mg tablet 5 mg PO DAILY Qty: 90 3RF albuterol sulfate [Ventolin HFA] 1 INHALER inhaler 2 puff inhalation BID PRN (Reason: COPD) Patient Comments: BREATHING multivitamin with folic acid [Thera] 1 TABLET tablet 1 tab PO DAILY Patient Comments: SUPPLEMENT diphenhydramine-acetaminophen [Tylenol PM Extra Strength] 25-500 mg Tablet 1 tab PO QHS PRN (Reason: Sleep) potassium 99 mg tablet 99 mg PO DAILY magnesium 200 mg tablet 400 mg PO DAILY cholecalciferol (vitamin D3) 50 mcg (2,000 unit) tablet 2,000 unit PO DAILY ascorbic acid (vitamin C) [C-500] 500 mg tablet 500 mg PO DAILY oxycodone 5 mg Tablet 5 mg PO Q6H PRN PRN (Reason: Pain Score 6-10) 5 Days Qty: 20 0RF Referrals / Follow Up: Lurdes Martinez MD [Primary Care Provider] - Disposition Disposition (needs filled in before D/C Order can be placed): Home, Self Care
--- NOTE | 2023-06-20 10:01 | CRPHASE1 ---
Patient Communication Patient Information Former Patient:: Phase I and Phase II PHII Cardiac Rehab Discussed with Patient:: Yes Guide to Cardiac Rehab Given to Patient:: Yes Cardiac Rehab Facility Choice List Given to Patient:: Yes Communication to Cardiac Rehab Choice Program [facility] PHII:: Communication Given to CR Fraud Manager:: Juan Oglesby Phase II Cardiac Rehab:: Yes Sessions:: 36 sessions - 3 days/wk, 12 weeks Cardiac Rehabilitation Info Program Information Cardiac Rehabilitation Program Information: Cardiac Rehab The cardiac rehab team at [facility] consists of highly skilled exercise physiologists, nurses, respiratory therapists and physicians working together with you. Our purpose is to help you have a full recovery and achieve the goals you set for yourself. Over the years many of our patients have returned to activities they assumed they would never do again! We can help restore your confidence and motivation to make lifestyle changes that can have a significant impact on your health and quality of life! We can help answer questions and concerns you may have about exercise, lifestyle, medications, diet, stress and anxiety which are common following a hospitalization. WE monitor ECG and vital signs during exercise and discuss your progress with you and report to your physician(s). Cardiac Rehab is proven to help reduce readmissions, improve functional capacity and lower recurrence of problems with your heart. Our Cardiac Rehab program is Certified by the [place] [employer]-V[employer] Pulmonary [employer] (AACVPR) and Accredited by the [place] through our [facility]. You can contact us at . We invite you to call us with your questions or to get started in our program. If you have other questions or concerns be sure to ask your physician/provider during your follow-up visit. WE look forward to seeing you!
--- NOTE | 2023-06-20 10:02 | CRPH1.INSTRU ---
General Education Discussed with Patient CAD and cardiac anatomy and function:: Patient communicates acknowledgment Explanation of diagnoses and procedures:: Patient communicates acknowledgment Sign/Symptoms of [place]:: Patient communicates acknowledgment Antiplatelet therapy: Patient communicates acknowledgment Proper use of NTG-SL: Patient communicates acknowledgment Emergency procedures and activation of EMS: Patient communicates acknowledgment Compliance of all prescribed medications: Patient communicates acknowledgment Smoking Risk Factors Patient Nicotine/Smoking Risk Factors Are:: Non-smoker Recommendations Recommendations Include:: Previous smoker; encourage continued cessation Response Code Nicotine/Smoking Response Code:: Patient communicates acknowledgment Dyslipidemia Risk Factors Patient Dyslipidemia Risk Factors Are:: Total Cholesterol, Triglycerides, HDL and LDL Recommendations Recommendations Include:: Lipid profile provided, Reviewed NCEP/ATP guidelines and Therapeutic Lifestyle Change dietary guidelines Response Code Dyslipidemia Response Code:: Patient communicates acknowledgment Overweight/Obesity Risk Factors Patient Overweight/Obesity Risk Factors Are:: BMI Normal [24-29 & > 65 years old] Recommendations Recommendations Include:: Weight loss of 5-10%, Reduced calorie diet and Exercise 5-7 times/week Response Code Overweight/Obesity:: Patient communicates acknowledgment Hypertension Recommendations Recommendations Include:: Maintain BP <130/85, DASH dietary guidelines, Decrease/maintain normal body weight and Moderation of ETOH Response Code Hypertension:: Patient communicates acknowledgment Diabetes Risk Factors Patient Diabetes Risk Factors Are:: No documented hx of diabetes Metabolic Syndrome Risk Factors Patient Metabolic Syndrome Risk Factors Are [3 of 5]:: Fasting blood sugar > 100 mg/dL, Waist circumference > 35 [female] or 40 [male], High triglyceride >150, Hypertension and Low HDL <40 [male] or < 50 [female] Recommendations Recommendations Include:: Reinforce compliance to risk factor modifications and Encouraged follow-up with Primary Care Physician Response Code Metabolic Syndrome Response Code:: Patient communicates acknowledgment Sedentary Risk Factors Patient Sedentary Risk Factors Are:: Lack of regular exercise Recommendations Recommendations Include:: Aerobic exercise 5-7 times/week for 20-30 minutes continuously, Benefits of regular exercise, Discussed home walking program and Monitored Outpatient Cardiac Rehab Response Code Sedentary Response Code:: Patient communicates acknowledgment Stress Recommendations Recommendations Include:: Identification of stressors, and assessment of coping skills and Stress management techniques Response Code Stress Response Code:: Patient communicates acknowledgment
[2023-06-20 19:21] LABS: ACT Activated Clotting Time 244 sec (74-137)
--- NOTE | 2023-06-22 08:55 | CL.I_ITS ---
Patient Name: JIMBO WEATHERS Study Date: 06/20/2023 Performing: Juan Oglesby MD Ht: 66 inches 167.64 cm : 1950 Wt: 175.2 lbs 79.38 kg Age: 72 Gender: male BSA: 1.89 PROCEDURE(S) PERFORMED DC02-(20553)LHC/COR IC12-(15530/[id number])HUGO W/WO PTCA, SINGLE CORONARY ARTERY CLINICAL PROFILE AND CO-MORBIDITIES Indications: Worsening Angina Heart Failure: None Angina Classification Anginal Classification w/in 2 Weeks: CCS II CAD Presentations: Stable angina. CONCLUSIONS 80% Prox OM1 Stent to Prox RCA patent Successful HUGO Prox RCA using Rohini Blackwood 3.0x22 mm RECOMMENDATIONS ASA Indefinitley Plavix for at least 12 months DESCRIPTION OF PROCEDURE The patient arrived to the procedure lab. The risks and benefits of the procedure as well as a full description of our services here and lack of surgical backup were fully explained to the patient and/or their significant other prior to the catheterization. The Timeout was completed, verifying the correct patient and procedure. The patient's procedural site was prepped and draped in the usual fashion. Local anesthetic was given subcutaneously to right radial region with Lidocaine 2%. Using a modified Seldinger technique, arterial access was obtained via the right radial artery, a 6Fr sheath was inserted.. Right Coronary Artery selective angiography was then performed in multiple views using a 5 Fr. 4.0 Verdi catheter Xb 3.0 Guide catheter was inserted and engaged into the LCA. Runthrough Guide wire was advanced to the 1st OM. [place] Blackwood 3.0 x 22 Drug Eluting stent was inserted. Drug Eluting stent was advanced across the lesion in the first obtuse marginal, proximal. NC Euphora 3.0 x 12 Balloon catheter was inserted. Balloon catheter was advanced across lesion in the first obtuse marginal, proximal. Angiogram performed post balloon dilatation. Angiogram performed post balloon dilatation. The arterial sheath was pulled and a TR Band was applied for hemostasis CORONARY ANGIOGRAPHY DOMINANCE: Right Dominant LEFT ANTERIOR DESCENDING ARTERY: LAD: Luminal Irregularities 20% Proximal lesion in LAD OM 1: Tubular 80% Proximal lesion in MARG1 OM 2: Tubular 80% Proximal lesion in MARG1 RIGHT CORONARY ARTERY: RCA: Luminal Irregularities 20% Mid lesion in RCA INTERVENTION INFORMATION LESION SITE: 1st OM (Proximal) Lesion Complexity: High/C Pre Stenosis: 80 % Pre intervention AMALIA flow: 3 PROCEDURE: Drug Eluting Stent with post dilatation Post Stenosis: 0 % Post intervention AMALIA flow: 3 Lesion Devices: Terumo .014 180cm Runthrough Extra Floppy straight Cordis 6 Fr XB3.0 100cm Guide Catheter Medtronic 3.0 x 22 ROHINI FRONTIER HUGO Medtronic NC EUPHORA RX 3.0x12 BALLOON COMPLICATIONS No Complications PROCEDURE MEDICATIONS Fentanyl 50 mcg IV Versed 1 mg IV Versed 1 mg IV Oxygen: 2 L/min via nasal cannula Heparin given IA 06/20/2023 09:08:03 Heparin 5000 unit(s) IV 06/20/2023 09:13:04 Nitro 200 mcg IC 06/20/2023 09:23:47 Verapamil 2.5mg, Ntg 200mcgs, 2000 units of Heparin given IA 06/20/2023 09:08:03 SUMMARY OF HEMODYNAMIC DATA Time AIR REST ECG 07:46:57 ECG 08:41:22 AO 104/57 (78) SA 09:10:46 AIR REST 10:01:28 Signed By Juan Oglesby MD On 06/22/2023 08:54:44 Juan Oglesby MD
== END 2023-06-20 16:04 | disposition home or self-care (01) ==
PROVIDERS: PCP Family Medicine; Referring Provider Internal Medicine Cardiovascular Disease; Visit Provider Internal Medicine Cardiovascular Disease
DX: I20.9 Angina pectoris, unspecified (principal); Z95.5 Presence of coronary angioplasty implant and graft; I25.10 Atherosclerotic heart disease of native coronary artery without angina pectoris; Z79.899 Other long term (current) drug therapy; Z79.82 Long term (current) use of aspirin; J45.909 Unspecified asthma, uncomplicated; I10 Essential (primary) hypertension; Z87.891 Personal history of nicotine dependence; Z79.02 Long term (current) use of antithrombotics/antiplatelets; E78.2 Mixed hyperlipidemia; I25.2 Old myocardial infarction; R06.09 Other forms of dyspnea; Z79.01 Long term (current) use of anticoagulants
CPT/HCPCS: 36415; 71046; 80048; 80061; 84450; 84460; 85025; 85347; 85610; 85730; 92928; 93005; 93454; 99152; 99153; J7040; Q9967; C1725; C1769; C1874; C1887; C1894; C9600

== ENCOUNTER → 2024-02-27 | Outpatient (CLI) | payer MEDICARE, OTHER, SELFPAY ==
[2023-03-07 09:14] VITALS: BMI 28.5
[2024-02-27 11:23] LABS: AST(SGOT) 29 U/L (15-37); Alanine Aminotransfer ALT/SGPT 42 U/L (16-61); Anion Gap 2 (5-15); BUN 10 mg/dL (7-18); BUN/Creat Ratio 14.3 RATIO (10-20); Calcium,Total 8.7 mg/dL (8.5-10.1); Chloride 108 mmol/L (98-107); Cholesterol 113 mg/dL (200); EST Glomerular Filtration Rate 117 mL/min (>60); Est Glom Filt Rate - Afr Amer 142 mL/min (>60); Glucose 97 mg/dL (74-106); High Density Lipoprotein 53 mg/dL; Potassium 4.2 mmol/L (3.5-5.1); Sodium Level 139 mmol/L (136-145); Triglycerides 51 mg/dL; Very Low Density Lipoprotein 10 mg/dL (5-40)
[2024-02-27 11:38] LABS: Protein, Urine (Random) 17.3 mg/dL (<11.9); Protein:Creat Ratio 182 mg/g CRE (0-200)
== END | disposition home or self-care (01) ==
LOC: MFPLAB 08:57
PROVIDERS: PCP Family Medicine; Visit Provider Family Medicine
DX: E78.00 Pure hypercholesterolemia, unspecified (principal); I10 Essential (primary) hypertension
CPT/HCPCS: 36415; 80048; 80061; 82570; 84156; 84443; 84450; 84460

== ENCOUNTER → 2024-08-28 | Outpatient (CLI) | payer MEDICARE, OTHER, SELFPAY ==
[2023-03-07 09:14] VITALS: BMI 28.5
[2024-08-28 10:25] LABS: Absolute Lymphocyte Count 1.75 X10^3/uL (0.83-4.51); Basophil# 0.04 X10^3/uL; Basophil% 0.6 % (0-1); Eosinophil# 0.27 X10^3/uL; Hematocrit 43.2 % (40-54); Hemoglobin 14.5 g/dL (13.0-16.5); Lymphocyte # 1.75 X10^3/ul (0.83-4.51); Lymphocyte % 26.2 % (19-41); Mean Corp Hgb Conc 33.6 g/dL (32-36); Mean Corpuscular Volume 101.2 fL (80-94); Mean Platelet Vol. 9.6 fl (6.2-12.0); Monocyte# 0.56 X10^3/uL; Monocyte% 8.4 % (0-10); NRBC Flagged by Analyzer 0 % (0-5); Neutrophil # 4.02 X10^3/uL (2.7-7.7); Neutrophil % 60.4 % (47-70); Platelet Count 196 K/mm3 (150-450); RBC Distribution Width CV 12.5 % (11.6-14.6); RBC Distribution Width SD 46.7 fl (35.1-43.9); Red Blood Count 4.27 M/mm3 (4.6-6.2); White Blood Count 6.7 K/mm3 (4.4-11.0)
[2024-08-28 11:13] LABS: ALB/GLOB Ratio 1.3 RATIO (0.9-2.4); AST(SGOT) 31 U/L (<=37); Alanine Aminotransfer ALT/SGPT 30 U/L (<=46); Alkaline Phosphatase 61 U/L (40-129); Anion Gap 10 (5-15); BUN 9 mg/dL (4-19); BUN/Creat Ratio 11.8 RATIO (10-20); Carbon Dioxide 25.6 mmol/L (21.0-32.0); Chloride 104 mmol/L (98-108); Cholesterol 105 mg/dL (<=200); Creatinine, Serum 0.73 mg/dL (0.70-1.20); EST Glomerular Filtration Rate 96 (>60); Globulin 3.1 g/dL (2.2-4.2); Glucose 92 mg/dL (70-99); High Density Lipoprotein 53 mg/dL; Low Density Lipoprotein Calc. 43 mg/dL; Potassium 4.4 mmol/L (3.3-5.1); Protein, Total 7.1 g/dL (5.9-8.4); Sodium Level 140 mmol/L (133-145); Total Bilirubin 0.35 mg/dL (0.00-1.30); Triglycerides 46 mg/dL; Very Low Density Lipoprotein 9 mg/dL (5-40); cholesterol:hdl ratio screen 1.99
[2024-08-28 11:15] LABS: PSA,Total- Diagnostic 2.17 ng/mL (0.00-4.00)
== END | disposition home or self-care (01) ==
LOC: MFPLAB 08:32
PROVIDERS: PCP Family Medicine; Visit Provider Family Medicine
DX: Z00.00 Encounter for general adult medical examination without abnormal findings (principal)
CPT/HCPCS: 36415; 80053; 80061; 84153; 85025

== ENCOUNTER → 2024-10-09 | Outpatient (CLI) | payer MEDICARE, OTHER, SELFPAY ==
[2023-03-07 09:14] VITALS: BMI 28.5
--- NOTE | 2024-10-09 06:50 | CT_ITS ---
EXAM: CT Chest, Lung Cancer Screening Without Intravenous Contrast CLINICAL INDICATION: > 30 YEARS SMOKING TECHNIQUE: Axial computed tomography images of the chest without intravenous contrast using low dose (LDCT) lung cancer screening protocol. This CT exam was performed using one or more of the following dose reduction techniques: automated exposure control, adjustment of the mA and/or kV according to patient size, and/or use of iterative reconstruction technique. COMPARISON: No relevant prior studies available. FINDINGS: LUNGS AND PLEURAL SPACES: Calcified granuloma of the right middle lobe. Lung emphysema/COPD. 6 mm ground-glass nodule of the lingula. No consolidation. No significant effusion. No pneumothorax. HEART: Unremarkable. No cardiomegaly. No significant pericardial effusion. No significant coronary artery calcifications. BONES/JOINTS: Unremarkable. No acute fracture. SOFT TISSUES: Unremarkable. VASCULATURE: Unremarkable. No thoracic aortic aneurysm. LYMPH NODES: Unremarkable. No enlarged lymph nodes. CT/Low Dose CT Lung Screening IMPRESSION: 1. Lung emphysema/COPD. 6 mm ground-glass nodule of the lingula. 2. LUNG-RADS 2: Benign. Continue low-dose CT screening of the chest in 12 mon ths is recommended. Reading [facility]
== END | disposition home or self-care (01) ==
LOC: CT 06:50
PROVIDERS: PCP Family Medicine; Referring Provider Family Medicine; Visit Provider Family Medicine
DX: Z12.2 Encounter for screening for malignant neoplasm of respiratory organs (principal); F17.210 Nicotine dependence, cigarettes, uncomplicated
CPT/HCPCS: 71271